=== PATIENT | female | born 1935 | race Caucasian/White ===

== ENCOUNTER → 2016-06-24 09:38 | Outpatient (CLI) | payer MEDICARE, OTHER ==
[2016-04-03 10:59] VITALS: BMI 19.7
[~2016-06-24 09:38] MED LIST: ACETAMINOPHEN500 M1 PO; ADVAIR HFA 230-12 GM; ADVAIR HFA 230-12 GM INH; AFRIN NASAL SPR15 ML NASAL; BACTRIM DS TABL1 TAB PEG; BACTRIM PEG; BAYER CHEWABLE81 MG PO; BROVANA15 MCG/2 M INH; CIPROFLOXA IV; GUAIFENESI100 MG/5 M NG; LEVAQUIN250 MG/10 PEG; LEVAQUIN500 MG PO; LOPRESSOR25 MG PO; MEDROL DOSE PACK4 MG PO; MIDODRINE HCL2.5 MG PO; MIDODRINE HCL5 MG PO; MIRAPEX0.125 MG PO; MUCINEX DM ER1 EAC1 PO; MUCINEX600 MG PO; MUCOMYST 20200 MG/M2 INH; NYSTATIN15 GM TOPICAL; OMNICEF300 MG PO; OXYTROL PATCH1 PATCH TRANSDERM; PEPCID AC20 MG PO; PHENERGAN25 M1 PO; PROBIOTIC1 EAC1 PO; PROTONIX20 MG PO; PROVENTIL HFA6.7 GM INH; PROVENTIL/2.5 MG/3 M NEB; QUESTRAN PACK4 G/PKT PO; REGLAN SOL10 MG/10 M PO; ROBAXIN500 MG PO; SALINE NASAL SP45 ML NS; SINGULAIR10 MG PO; SPIRIVA18 MCG INH; SULFATRIM SUSP100 ML PO; SYNTHROID125 MCG; SYNTHROID125 MCG PO; TOBI 300 M300 MG/5 M INH; TOBI 300 M300 MG/5 M UPD; TOBRAMYCIN S40 MG/M1 IM; TOBRAMYCIN S40 MG/M1 IV; TOPROL XL25 MG PO; ULTRAM50 MG PO; VITAMIN D250000 UNIT; VITAMIN D50000 UNIT PO; XANAX0.25 MG PO; XOPENEX 0.0.63 MG/3 UPD; ZOFRAN8 MG PEG
== END | disposition home or self-care (01) ==
LOC: D.RAD 09:38
DX: J45.909 Unspecified asthma, uncomplicated (principal)

== ENCOUNTER 2016-07-10 08:07 | Outpatient (CLI) | payer MEDICARE, OTHER ==
[~2016-07-10] VITALS: Ht 175.3 cm; Wt 60.0 kg
[~2016-07-10 08:07] MED LIST changes: -ACETAMINOPHEN500 M1 PO
[2016-07-10] MEDS ORDERED: ROBAXIN500 MG PO (08:35)
[2016-07-10] MEDS ORDERED: ACETAMINOPHEN500 M1 PO (08:36)
[2016-07-10] MEDS ORDERED: ULTRAM50 MG PO (08:36)
[2016-07-10 08:41] VITALS: BP 171/70; Ht 175.3 cm; Wt 60.0 kg
--- NOTE | 2016-07-10 08:57 | NUR ---
0850 ACCESSED PATIENT PORT WITHOUT PROBLEMS, FLUSHED WITH SALINE AND HEPARIN, DISCONTINUED AND A BANDAID PLACED OVER SITE. NO PROBLEMS NOTED
== END 2016-07-10 08:59 ==
LOC: D.OPS 08:07
DX: Z45.2 Encounter for adjustment and management of vascular access device (principal)

== ENCOUNTER → 2016-08-08 08:03 | Outpatient (CLI) | payer MEDICARE, OTHER ==
[2016-07-10 08:41] VITALS: BMI 19.5
[~2016-08-08 08:03] MED LIST changes: +ACETAMINOPHEN500 M1 PO
[2016-08-08 08:54] LABS: BASOPHILS 0.1 % (0.0-2.0); EOSINOPHILS 1.8 % (0-7); HEMATOCRIT 36.3 % (36.0-48.0); HEMOGLOBIN 10.6 g/dL (12-16); IMMATURE GRANULOCYTES 0.3 % (0-5); LYMPHOCYTES 10.9 % (15-50); MCH 23.1 pg (26.0-34.0); MCHC 29.2 g/dL (31.0-37.0); MCV 79.1 fL (80.0-100.0); MEAN PLATELET VOLUME 10.3 fL (7.4-10.4); MONOCYTES 4.2 % (2-11); NEUTROPHILS 82.7 % (40-80); PLATELET COUNT 356 10x3/uL (130-400); RBC 4.59 10x6/uL (4.00-5.40); RDW 15.2 % (11.5-14.5); WBC 14.4 10x3/uL (4.8-10.8)
== END | disposition home or self-care (01) ==
LOC: D.RAD 08:03
PROVIDERS: Internal Medicine Pulmonary Disease
DX: J44.9 Chronic obstructive pulmonary disease, unspecified (principal)

== ENCOUNTER 2016-08-10 15:38 | Inpatient (IN) | payer MEDICARE, OTHER ==
[~2016-08-10] VITALS: Ht 175.3 cm; Wt 67.0 kg
[2016-08-10 16:26] LABS: BASOPHILS 0.1 % (0.0-2.0); EOSINOPHILS 1.3 % (0-7); HEMATOCRIT 34.7 % (36.0-48.0); HEMOGLOBIN 10.4 g/dL (12-16); IMMATURE GRANULOCYTES 0.3 % (0-5); LYMPHOCYTES 14.2 % (15-50); MCH 23.4 pg (26.0-34.0); MEAN PLATELET VOLUME 10.8 fL (7.4-10.4); MONOCYTES 6.7 % (2-11); NEUTROPHILS 77.4 % (40-80); PLATELET COUNT 357 10x3/uL (130-400); RBC 4.45 10x6/uL (4.00-5.40); RDW 15.1 % (11.5-14.5); WBC 13.9 10x3/uL (4.8-10.8)
[2016-08-10 16:53] LABS: ALBUMIN 3.2 g/dL (3.4-5.0); ANION GAP 15.9 mmol/L (8-16); BILIRUBIN - TOTAL 0.4 mg/dL (0.2-1.3); CALCIUM 8.6 mg/dL (8.5-10.1); CARBON DIOXIDE 25.1 mmol/L (21.0-32.0); CREATININE - SERUM 0.9 mg/dL (0.6-1.3); PROTEIN - SERUM 6.6 g/dL (6.4-8.2)
[2016-08-10 17:55] LABS: CREATINE KINASE 65 UL (21-215); PRO BNP 288 pg/mL (0-450)
[2016-08-10 17:56] LABS: TROPONIN-I < 0.017 ng/mL (0.000-0.060)
--- NOTE | 2016-08-10 19:25 | NUR ---
Patient Name: LIZ JOYCE Admission Status: ER Accout number: [id number] Admission Date: 08-10-2016 : 1935 Admission Diagnosis: LLL Pneumonia Attending: BALWINDER Current LOS: 1 Anticipated DC Date: 08-15-2016 Planned Disposition: Home with [facility] Primary Insurance: MEDICARE A & B Discharge Planning Comments: Cm met with patient to complete initial discharge planning assessment. Patient gave consent to complete assessment. Patient reports she lives home alone but her son lives next door to her and helps her as needed. She currently has [facility]. She also has personal care that helps with her meals and house work. She wears O2 24/7 at home and her oxygen provider is [facility]. Patient plans to return to home alone at discharge with resumption of [facility]. CM will continue to follow and assist with dc plan/needs. Antique Jewelry Repairer: Carmen Palacios RN, [facility] [phone] Is the patient Alert and Oriented? Yes * How many steps to enter\exit or inside your home? FOUR * PCP Dr. العلي * Pharmacy [place] * Preadmission Environment Home Alone * ADLs Partial Dependent * Partial ADLs (Assistance needed) Bathing * Equipment [employer] Rolling Walker Walker * Other Equipment [facility] * List name and contact numbers for known caregivers / representatives who currently or will assist patient after discharge: Kenney Solis - [facility] - [phone] * Community resources currently utilized Home Health * Please name any agencies selected above. [facility] * Additional services required to return to the preadmission environment? No * Can the patient safely return to the preadmission environment? Yes * Has this patient been hospitalized within the prior 30 days at any hospital? No
[2016-08-11] VITALS (7 sets, daily range): BP systolic 143–159; BP diastolic 52–66; BMI 19.3
--- NOTE | 2016-08-11 03:23 | NUR ---
COLLECTED SPTUMUM FOR CULTURE.
[2016-08-11 06:36] LABS: BASOPHILS 0.1 % (0.0-2.0); EOSINOPHILS 1.4 % (0-7); HEMATOCRIT 32.7 % (36.0-48.0); HEMOGLOBIN 9.6 g/dL (12-16); IMMATURE GRANULOCYTES 0.2 % (0-5); LYMPHOCYTES 12.8 % (15-50); MCH 22.9 pg (26.0-34.0); MCHC 29.4 g/dL (31.0-37.0); MEAN PLATELET VOLUME 10.2 fL (7.4-10.4); MONOCYTES 7.3 % (2-11); NEUTROPHILS 78.2 % (40-80); PLATELET COUNT 310 10x3/uL (130-400); RBC 4.19 10x6/uL (4.00-5.40); RDW 15.3 % (11.5-14.5)
[2016-08-11 06:52] LABS: ANION GAP 13.5 mmol/L (8-16); CALCIUM 8.7 mg/dL (8.5-10.1); CARBON DIOXIDE 25.3 mmol/L (21.0-32.0); CREATININE - SERUM 0.8 mg/dL (0.6-1.3); POTASSIUM - SERUM 3.8 mmol/L (3.5-5.1)
--- NOTE | 2016-08-11 07:30 | NUR ---
WALKING ROUNDS,PT WITHOUT DISTRESS
--- NOTE | 2016-08-11 08:52 | HP ---
PATIENT: LIZ JOYCE MEDICAL RECORD: [id number] ACCOUNT: [id number] LOCATION:[address] : [birth year] ADMISSION DATE: 08/10/16 HISTORY AND PHYSICAL EXAMINATION REASON FOR ADMISSION: Fever with cough. HISTORY OF PRESENT ILLNESS: The patient is a 81-year-old female with history of bronchiectasis and COPD. She sees Dr. Jacques on a regular basis. She is due to see him next week since she had x-rays done 2 days ago at the hospital prior to that appointment. She said she had abrupt onset of increasing cough and fever to 100.4 last night. She became more short of breath today and then came to the ER. She states she had similar episode 2 weeks ago with fall through at home just with her updrafts and Mucinex, but no antibiotics. Chest x-rays now showed changes with some early infiltrate. She is now being admitted for that reason. PAST MEDICAL HISTORY: Bronchiectasis, hypothyroidism, orthostatic hypotension on Midodrine. She had TB, pneumonia, postmenopausal, history of chronic low back pain, history of stroke in 2007, atrial fibrillation, labile hypertension in the past, history of squamous cell carcinoma of the face, severe gastroparesis and esophageal stricture post-dilatation. PAST SURGICAL HISTORY: Cholecystectomy, cataract surgery both eyes, and appendectomy. She had lumbar discectomy times 3 with ablation in 2011, gastrojejunal tube, ____ thyroid tumor removed and hysterectomy. J-tube placement, right oophorectomy, carpal tunnel release, cervical spine surgery and exploratory laparotomy. ALLERGIES: SULFA, MORPHINE, ADHESIVE TAPE, LEVAQUIN CAUSED HALLUCINATIONS AND PENICILLIN. FAMILY HISTORY: Father at 54 from TB. Mother at 86 from renal failure and had migraine headaches. One sister at 54 and other at age 63 from CAD, and breast cancer. One brother with CAD and hypertension. SOCIAL HISTORY: She does not drink alcohol, nonsmoker, but did smoke in the past. HOME MEDICATIONS: Zofran 8 mg per gastrostomy q.8 hours p.r.n. nausea and vomiting, Protonix 40 mg b.i.d., Mirapex 0.125 mg p.o. at bedtime, aspirin 81 mg daily, vitamin D 50,000 unit capsule twice a week, Advair HFA 230/21 two puffs b.i.d., Synthroid 0.125 mg daily, Singulair 10 mg with evening meal, probiotic 1 daily, Pepcid AC 20 mg at bedtime, Xanax 0.25 mg b.i.d. p.r.n. anxiety, Oxytrol 3.9 mg patch to skin q. Friday and , Lopressor 25 mg tablets 1/2 tab daily, Mucomyst 20% updraft q.12 hours, Xopenex 0.63 mg updrafts q.i.d., Mucinex 600 mg 2 tabs b.i.d., Genasal sprays twice daily, saline nasal spray 2 nasal sprays every hour as needed, ProAmatine 5 mg tablets 4 times daily. REVIEW OF SYSTEMS: GENERAL: More fatigued in the last 24 hours with low-grade fever, poor appetite. HEENT: No recent new visual change, sinus congestion, or sore throat. RESPIRATORY: Increasingly productive cough with yellow-green sputum, mildly dyspneic. Denies chest pain. HISTORY AND PHYSICAL [id number] LIZ JOYCE CARDIAC: Denies chest pain, edema. GASTROINTESTINAL: No nausea or vomiting. GENITOURINARY: Mild stress incontinence, no dysruia. MUSCULOSKELETAL: Chronic arthralgias of the lumbar spine, no current sciatica. ENDOCRINE: Denies polyuria, polydipsia, heat or cold intolerance. NEUROLOGIC: No history of seizures. PSYCHIATRIC: Denies depressed mood. PHYSICAL EXAMINATION: VITAL SIGNS: O2 saturation is currently 95% on 2 liters, pressure 110/80, heart rate 60, respirations are 22, temperature is 98 degrees Fahrenheit. GENERAL: A chronically ill-appearing female in no acute distress. Mildly dyspneic. HEENT: Eyes are clear with lens implants both eyes. Oropharynx unremarkable. NECK: Supple. No JVD. CHEST: She has expiratory wheezes in the upper lobes bilaterally. She is producing copious green sputum currently. HEART: Regular rate. ABDOMEN: Soft, nontender. EXTREMITIES: No CC&E. NEUROLOGICAL: Oriented times 3. Cranial nerves grossly intact. Gait not tested. No localizing neurologic signs are noted. INTEGUMENT: No bruising or icterus appreciated. Skin tense somewhat. LABORATORY DATA: Shows white count of 13.9 thousand with left shift, H&H is 10.4 and 34.7 respectively. Chemistry: BUN and creatinine of 20 and 0.9, lactic acid 1.4. Liver functions are normal. Urinalysis is pending. Chest x-ray shows increasing left lower lobe airspace disease consistent with pneumonia, persistent left pleural effusion. ASSESSMENT: Community-acquired pneumonia, bronchiectasis, chronic obstructive pulmonary disease with hypoxemia, hypothyroidism, history of essential hypertension, history of orthostatic hypotension, chronic low back pain, anxiety, hypothyroidism, history of chronic anemia, paroxysmal atrial fibrillation with remote ablation, peripheral neuropathy and history of gastrointestinal stromal tumor. PLAN: The patient will be admitted and placed on broad-spectrum IV antibiotics. Her home pulmonary updrafts will be continued. Consult with Dr. Jacques will be obtained. TRANSINT:[id number] Voice Confirmation ID: [id number] DOCUMENT ID: [id number] HISTORY AND PHYSICAL [id number] LIZ JOYCE TIMOTHY MD at 0852 CC: [id number] DICTATION DATE: 08/10/162002 INDUSTRIAL PRODUCTION MANAGER: 08/10/16 2207 [id number] [place] [address]
--- NOTE | 2016-08-11 09:00 | NUR ---
ASSESSMENT PER FLOW SHEET.PT WITHOUT DISTRESS.CALL LIGHT IN REACH
[2016-08-11 13:58] LABS: APPEARANCE CLEAR (CLEAR); COLOR YELLOW (YELLOW)
[2016-08-11 13:59] LABS: BILIRUBIN NEGATIVE (NEGATIVE); GLUCOSE NEGATIVE (NEGATIVE); KETONE SMALL mg/dL (NEGATIVE); LEUKOCYTE ESTERASE NEGATIVE (NEGATIVE); NITRITE NEGATIVE (NEGATIVE); PROTEIN NEGATIVE (NEGATIVE); SPECIFIC GRAVITY 1.015 (1.005-1.020); UROBILINOGEN NORMAL (NORMAL)
--- NOTE | 2016-08-11 14:30 | NUR ---
DRESSING CHANGE TO PEG TUBE SITE.PT TOLERATED WELL.SKIN AROUND PEG TUBE RED.YELLOW DRAINAGE NOTED ON DRESSING.
--- NOTE | 2016-08-11 19:28 | NUR ---
REMAINS WITHOUT NEEDS,WITHOUT CHANGE.CONT PLAN OF CARE
--- NOTE | 2016-08-11 19:40 | NUR ---
ASSESSMENT COMPLETE, IN BED WATCHING TV, PT DENIES PAIN OR NEEDS, BED LOW, CL IN REACH.
--- NOTE | 2016-08-11 20:24 | NUR ---
UP WITH ASSIST TO BR.
--- NOTE | 2016-08-11 21:56 | NUR ---
HS MEDS GIVEN WITH FRESH ICE WATER. OSMOLITE 1.5 JOSE INFUSING TO PEG. AT 90 CC/HR. WILL CONT TO MONITOR.
--- NOTE | 2016-08-12 00:27 | NUR ---
LUMBER TRIPPER AT BEDSIDE FOR VS, NEEDS ADDRESSED. CALL LIGHT IN REACH. WILL CONT TO MONITOR.
[2016-08-12 00:30] VITALS: BP 138/70
--- NOTE | 2016-08-12 03:17 | NUR ---
RESTING WITH EYES CLOSED, RESPERATIONS EVEN, NO S/S DISTRESS NOTED.
[2016-08-12 04:45] VITALS: BP 168/71
--- NOTE | 2016-08-12 07:26 | NUR ---
AM ROUNDING DONE. OSOMOLITE INFUSING PER PEG TUBE AT 90 CC/HR, WHEN FINISHED WILL FLUSH AND CLAMP PEG ORDERED. ON 2L PER NC. RIGHT IP IS SALINE LOCKED. BILATERAL TATE HOSE ON WITH SCD'S. WILL TAKE THEM OFF AND ASSESS SKIN THIS AM. WILL CONTINUE TO MONITOR.
--- NOTE | 2016-08-12 08:09 | NUR ---
TO RADIOLOGY VIA WHEELCHAIR AND PORTABLE O2. TUBE FEEDING FLUSHED WITH 60 CC WATER AND CLAMPED. SALINE LOCK MADE TO RIGHT IP, NO DATE SEEN TO DRESSING. PATIENT STATES THAT IT WAS ACCESSED FRIDAY IN THE ER. WILL CONTINUE TO MONITOR. BED LINENS CHANGED.
[2016-08-12 08:13] VITALS: BP 138/51
--- NOTE | 2016-08-12 08:22 | NUR ---
RETURNS FROM RADIOLOGY.
[2016-08-12 12:04] VITALS: BP 134/55
[2016-08-12 13:22] VITALS: Ht 175.3 cm; Wt 67.0 kg
[2016-08-12 18:12] VITALS: BP 155/66
--- NOTE | 2016-08-12 19:38 | NUR ---
ASSESSMENT COMPLETE, A&O, RIGHT CHEST IFP SL, DRSG INTACT. PEG TUBE CLAMMPED. PT DENIES PAIN OR NEEDS, BED LOW, CL IN REACH, WILL CONT TO MONITOR.
[2016-08-12 20:00] VITALS: BP 117/48
--- NOTE | 2016-08-12 21:04 | NUR ---
HS MEDS GIVEN WITH FRESH ICE WATER, OSMYLYTE 1.5 JOSE TO PEG TUBE AT 90 CC/HR. ULTRAM 1 TAB GIVEN FOR C/O PAIN TO LEGS, NO OTHER NEEDS AT THIS TIME, BED LOW, CL IN REACH.
[2016-08-13] VITALS: BP 126/52
--- NOTE | 2016-08-13 00:39 | NUR ---
GRIT REMOVAL OPERATOR AT BEDSIDE FOR VS, NEEDS ADDRESSED. CALL LIGHT IN REACH. WILL CONT TO MONITOR.
--- NOTE | 2016-08-13 02:37 | NUR ---
RESTING WITH EYES CLOSED, RESPERATIONS EVEN, NO S/S DISTRESS NOTED.
[2016-08-13 04:00] VITALS: BP 129/59
--- NOTE | 2016-08-13 07:55 | NUR ---
0715-COMPLAINTS OF NAUSEA, ORAL ZOFRAN GIVEN PER REQUEST. PEG TUBE CLAMPED PAST FLUSHING WITH 60 CC WATER. RIGHT IP SEEN WITH NS AT KVO. O2 AT 2L PER NC. BILATERAL TATE HOSE AND SCD'S ARE ON. WILL CONTINUE TO MONITOR.
[2016-08-13 08:27] VITALS: BP 156/72
--- NOTE | 2016-08-13 10:42 | NUR ---
DENIES NEEDS AT PRESENT TIME, WILL CONTINUE TO MONITOR.
[2016-08-13 12:02] VITALS: BP 134/71
--- NOTE | 2016-08-13 13:27 | NUR ---
READING BOOK, DENIES NEEDS AT PRESENT TIME. WILL CONTINUE TO MONITOR.
[2016-08-13 16:38] VITALS: BP 149/73
--- NOTE | 2016-08-13 18:17 | NUR ---
DENIES NEEDS AT PRESENT TIME, READING BOOK. WILL CONTINUE TO MONITOR.
[2016-08-13 21:06] VITALS: BP 149/67
--- NOTE | 2016-08-13 21:17 | NUR ---
HS MEDS GIVEN WITH FRESH ICE WATER. TYLENOL GIVEN FOR C/O DISCOMFORT TO LOWER EXTREMITIES, NO OTHER NEEDS EXPRESSED AT THIS TIME, BED LOW, CL IN REACH.
--- NOTE | 2016-08-13 23:29 | NUR ---
WORKSITE WELLNESS PRACTITIONER AT BEDSIDE FOR VS. NEEDS ADDRESSED AT THIS TIME. CALL LIGHT IN REACH. PATRICIA CONT TO MONITOR.
[2016-08-14 01:50] VITALS: BP 134/56
[2016-08-14 05:40] VITALS: BP 115/65
[2016-08-14 05:52] LABS: BASOPHILS 0.2 % (0.0-2.0); EOSINOPHILS 4.8 % (0-7); HEMOGLOBIN 8.9 g/dL (12-16); IMMATURE GRANULOCYTES 0.2 % (0-5); LYMPHOCYTES 18.1 % (15-50); MCH 22.5 pg (26.0-34.0); MCHC 28.7 g/dL (31.0-37.0); MCV 78.3 fL (80.0-100.0); MEAN PLATELET VOLUME 10.8 fL (7.4-10.4); MONOCYTES 10.3 % (2-11); NEUTROPHILS 66.4 % (40-80); PLATELET COUNT 359 10x3/uL (130-400); RBC 3.96 10x6/uL (4.00-5.40); RDW 14.9 % (11.5-14.5)
[2016-08-14 06:23] LABS: CALC OSMOLALITY 276 mosm/kg (275-300); CALCIUM 8.1 mg/dL (8.5-10.1); CARBON DIOXIDE 27.8 mmol/L (21.0-32.0); CHLORIDE - SERUM 102 mmol/L (98-107); CREATININE - SERUM 0.7 mg/dL (0.6-1.3); POTASSIUM - SERUM 4.4 mmol/L (3.5-5.1); SODIUM 136 mmol/L (136-145); UREA NITROGEN 18 mg/dL (7-18); eGFR NON AFRICAN AMERICAN 85 mL/min (90-120)
[2016-08-14 06:29] LABS: GLUCOSE 153 mg/dL (74-106)
--- NOTE | 2016-08-14 08:00 | NUR ---
ASSESSEMENT DONE. PT SITTING UP IN BED READING A BOOK. FEEDING PUMP TURNED OFF AND FLUSHED WITH 60ML OF H2O. PT DENIES NEEDS. NO DISTRESS NOTED. PT TO X-RAY VIA W/C. WILL CONT. TO MONITOR.
[2016-08-14 08:03] VITALS: BP 126/60
--- NOTE | 2016-08-14 09:01 | NUR ---
PLACED PATIENT ON VEST FOR 20 MIN. TOLERATED WELL.
--- NOTE | 2016-08-14 09:31 | NUR ---
RESP UL ON . IV PATENT. FAMILY AT BS. WILL CONT. PLAN OF CARE.
[2016-08-14 11:59] VITALS: BP 142/63
--- NOTE | 2016-08-14 14:09 | NUR ---
PT SITTING UP IN CHAIR AT BEDSIDE. DENIES NEEDS. NO DISTRESS NOTED. CALL LIGHT WITH IN REACH. WILL CONT. TO MONITOR.
--- NOTE | 2016-08-14 14:12 | NUR ---
Nutrition Follow Up: Chart reviewed. Pt is eating 31% meal avg on a regular pureed diet. Pt is also receiving nocturnal TF of Osmolite 1.5 @ 90 ml/hr (for 12 hours). Per DIRECTOR CORPORATE SECURITY note pt does not like pureed texture - DIRECTOR CORPORATE SECURITY continuing to work with pt. I>O. Labs noted - Glucose slightly elevated. Meds noted. Rec continue current diet per DIRECTOR CORPORATE SECURITY recs. Rec continue current TF regimen. Will provide selective menus and honor food preferences. RD following.
[2016-08-14 16:00] VITALS: BP 145/57
--- NOTE | 2016-08-14 20:43 | NUR ---
HS MEDS GIVEN WITH FRESH ICE WATER. OSMOLITE 1.5 JOSE INFUSING TO PEG TUBE AT 90 CC/HR. ULTRAM 1 TAB GIVEN FOR C/O DISCOMFORT. NO OTHER NEEDS AT THIS TIME, BED LOW, CL IN REACH.
[2016-08-14 22:07] VITALS: BP 170/71
--- NOTE | 2016-08-14 23:26 | NUR ---
IN BED RESTING WITH EYES CLOSED, RESPERATIONS EVEN, NO S/S DISTRESS NOTED.
[2016-08-15 01:57] VITALS: BP 156/72
[2016-08-15 05:26] VITALS: BP 141/57
[2016-08-15 05:54] LABS: BASOPHILS 0.2 % (0.0-2.0); EOSINOPHILS 4.4 % (0-7); HEMATOCRIT 31.6 % (36.0-48.0); HEMOGLOBIN 9.2 g/dL (12-16); IMMATURE GRANULOCYTES 0.2 % (0-5); LYMPHOCYTES 20.9 % (15-50); MCH 22.7 pg (26.0-34.0); MCHC 29.1 g/dL (31.0-37.0); MEAN PLATELET VOLUME 10.7 fL (7.4-10.4); MONOCYTES 9.3 % (2-11); PLATELET COUNT 363 10x3/uL (130-400); RBC 4.05 10x6/uL (4.00-5.40); RDW 15.1 % (11.5-14.5); WBC 5.5 10x3/uL (4.8-10.8)
[2016-08-15 06:06] LABS: ANION GAP 9.6 mmol/L (8-16); CALCIUM 8.8 mg/dL (8.5-10.1); CARBON DIOXIDE 28.5 mmol/L (21.0-32.0); CREATININE - SERUM 0.8 mg/dL (0.6-1.3); POTASSIUM - SERUM 4.1 mmol/L (3.5-5.1)
--- NOTE | 2016-08-15 06:27 | NUR ---
NO CHANGES FROM PREVIOUS ASSESSMENT, CALL LIGHT IN REACH. WILL CONTINUE TO WITH PLAN OF CARE.
--- NOTE | 2016-08-15 08:12 | NUR ---
PLACED PT ON VEST TX FOR 20 MIN. EDGAR TX WELL.
[2016-08-15 08:19] VITALS: BP 140/60
--- NOTE | 2016-08-15 08:44 | NUR ---
ASSESSMENT DONE. PT SITTING UP IN BED TALKING ON PHONE. A/O. STATES SHE VOMITED UP WHAT BREAKFAST SHE ATTEMPTED TO EAT. DENIES NAUSEA AT THIS TIME. DENIES OTHER NEEDS. NO DISTRESS NOTED. CALL LIGHT WITH IN REACH. WILL CONT TO MONITOR.
--- NOTE | 2016-08-15 09:23 | NUR ---
IV PATENT. FAMILY AT BS. CALL LIGHT IN REACH. WILL CONT. PLAN OF CARE.
--- NOTE | 2016-08-15 09:30 | NUR ---
PT UNABLE TO TAKE PO MEDS A THIS TIME. C/O NAUSEA. HAD ZOFRAN AT 0630. PT THINKS NAUSEA IS D/T HER NERVES. XANAX GIVEN. WILL CONT. TO MONITOR.
--- NOTE | 2016-08-15 10:46 | NUR ---
PT STATES NAUSEA AND ANXIETY HAS IMPROVED. DAUGHTER ASSISTING PT WITH SHOWER. NO DISTRESS NOTED. WILL CONT. TO MONITOR.
[2016-08-15 12:20] VITALS: BP 137/55
--- NOTE | 2016-08-15 14:05 | NUR ---
PT SLEEPING. APPEARS COMFORTABLE. RESP EVEN AND UNLABORED. NO DISTRESS NOTED. CALL LIGHT WITH IN REACH. WILL CONT. TO MONITOR.
[2016-08-15 16:17] VITALS: BP 121/62
--- NOTE | 2016-08-15 18:10 | NUR ---
PT SLEEPING. HOB ELEVATED. NO DISTRESS NOTED. CALL LIGHT WITH IN REACH. WILL CONT. TO MONITOR.
--- NOTE | 2016-08-15 19:00 | NUR ---
RECEIVED REPORT AND ASSUMED PT CARE FROM DAY SHIFT NURSE @ THIS TIME.
[2016-08-15 20:00] VITALS: BP 140/64
--- NOTE | 2016-08-15 21:30 | NUR ---
OSMOLITE 1.5 JOSE FEEDING STARTED TO J-TUBE @ 90 ML/HR AT THIS TIME VIA PUMP. PT STATES NOT RECEIVING ANY FLUSHES DURING THE FEEDING.
--- NOTE | 2016-08-15 23:25 | NUR ---
PT RESTING WELL WITHOUT C/O OR DISTRESS NOTED.
[2016-08-16] VITALS: BP 120/44
[2016-08-16 04:00] VITALS: BP 132/60
[2016-08-16 08:51] LABS: CALC OSMOLALITY 281 mosm/kg (275-300); CALCIUM 8.6 mg/dL (8.5-10.1); CARBON DIOXIDE 28.1 mmol/L (21.0-32.0); CHLORIDE - SERUM 105 mmol/L (98-107); CREATININE - SERUM 0.7 mg/dL (0.6-1.3); GLUCOSE 84 mg/dL (74-106); POTASSIUM - SERUM 4.5 mmol/L (3.5-5.1); SODIUM 139 mmol/L (136-145); UREA NITROGEN 26 mg/dL (7-18); eGFR NON AFRICAN AMERICAN 85 mL/min (90-120)
[2016-08-16 09:11] LABS: BASOPHILS 0.3 % (0.0-2.0); EOSINOPHILS 3.6 % (0-7); HEMATOCRIT 30.6 % (36.0-48.0); HEMOGLOBIN 8.9 g/dL (12-16); IMMATURE GRANULOCYTES 0.3 % (0-5); LYMPHOCYTES 21.8 % (15-50); MCH 22.8 pg (26.0-34.0); MCHC 29.1 g/dL (31.0-37.0); MCV 78.3 fL (80.0-100.0); MEAN PLATELET VOLUME 11.1 fL (7.4-10.4); MONOCYTES 11.9 % (2-11); NEUTROPHILS 62.1 % (40-80); PLATELET COUNT 381 10x3/uL (130-400); RBC 3.91 10x6/uL (4.00-5.40); RDW 15.4 % (11.5-14.5); WBC 6.1 10x3/uL (4.8-10.8)
[2016-08-16 09:52] VITALS: BP 128/58
[2016-08-16 13:19] VITALS: BP 139/59
[2016-08-16 16:38] VITALS: BP 141/60
[2016-08-16 21:44] VITALS: BP 144/53
[2016-08-17 00:35] VITALS: BP 136/58
--- NOTE | 2016-08-17 04:17 | NUR ---
DELAY IN STARTING HS OSMOLITE AT 90CC/HR VIA PUMP TO mymission2. STARTED AT THIS TIME. SPOKE WITH PT. WILL ADMINISTER 2 CANS AND THEN SHE WILL DECIDE IF SHE WANTS TO EAT BREAKFAST OR HAVE THE OTHER 2 CANS. IV ABT IS INFUSING. NO OTHER NEEDS. WILL MONITOR.
[2016-08-17 04:36] VITALS: BP 107/68
[2016-08-17 07:07] LABS: BASOPHILS 0.4 % (0.0-2.0); HEMATOCRIT 30.2 % (36.0-48.0); HEMOGLOBIN 8.8 g/dL (12-16); IMMATURE GRANULOCYTES 0.2 % (0-5); LYMPHOCYTES 25.5 % (15-50); MCH 22.7 pg (26.0-34.0); MCHC 29.1 g/dL (31.0-37.0); MEAN PLATELET VOLUME 10.9 fL (7.4-10.4); MONOCYTES 10.4 % (2-11); NEUTROPHILS 58.5 % (40-80); PLATELET COUNT 354 10x3/uL (130-400); RBC 3.87 10x6/uL (4.00-5.40); RDW 15.3 % (11.5-14.5); WBC 5.2 10x3/uL (4.8-10.8)
[2016-08-17 07:21] LABS: CALCIUM 8.6 mg/dL (8.5-10.1); CARBON DIOXIDE 27.6 mmol/L (21.0-32.0); CHLORIDE - SERUM 104 mmol/L (98-107); CREATININE - SERUM 0.7 mg/dL (0.6-1.3); SODIUM 140 mmol/L (136-145); UREA NITROGEN 21 mg/dL (7-18); eGFR NON AFRICAN AMERICAN 85 mL/min (90-120)
[2016-08-17 07:23] LABS: CALC OSMOLALITY 283 mosm/kg (275-300); GLUCOSE 141 mg/dL (74-106); POTASSIUM - SERUM 3.8 mmol/L (3.5-5.1)
--- NOTE | 2016-08-17 07:54 | NUR ---
ASSESSMENT COMPLETED. O2 AT 2 L/M PER NC. RIGHT CHEST IP WITH NS AT KVO. J TUBLE WITH OSMOLYTE 1.5 INFUSING AT 90CC. DENIES ANY NEEDS. CALL LIGHT IN REACH WITH SR UP
[2016-08-17 08:00] VITALS: BP 135/57
--- NOTE | 2016-08-17 10:50 | NUR ---
DENIES ANY NEEDS. CALL LIGHT IN REACH. DR PAYNE HERE. ORDERS RECIEVED
--- NOTE | 2016-08-17 11:11 | NUR ---
PT DISCHARGED. IP FLUSHED WITH HEPARIN FLUSH. INSTRUCTIONS GIVEN TO PT. TO PRIVATE CAR PER WHEELCHAIR
--- NOTE | 2016-08-19 09:33 | NUR ---
Patient Name: LIZ JOYCE Encounter No: [id number] : 1935 Primary Insurance: MEDICARE A & B Anticipated DC Date: 08-17-2016 Planned Disposition: Home with Home Health External Planned Provider: MARLON [facility] DCP follow-up note: KEKE REVIEWED DISCHARGE, CALLED [facility], , WAS INFORMED BY MARIAMA THAT PT CALLED THEM THIS MORNING TO NOTIFY THEM OF HER DISCHARGE ON FRIDAY. MARGARET HAS NOT RECEIVED ANY DISCHARGE INFORMATION. MARGARET WILL RESUME [facility], CM FAXED DISCHARGE INFORMATION TO [facility] AT [phone]. NO FURHTER DISCHARGE NEEDS IDENTIFIED. Mundo Finley, CASE MANAGMENT
[2016-08-19 15:19] LABS: AEROBE ID Final report (())
--- NOTE | 2016-09-01 20:28 | DS ---
PATIENT:LIZ JOYCE :[birth year] MEDICAL RECORD: [id number] DISCHARGE SUMMARY ADMISSION DATE: 08/10/16 DISCHARGE DATE: 08/17/16 DISCHARGE DIAGNOSES: 1. Ujxnx-sp-xjvmkrw hypoxemia with respiratory failure. 2. Left lower lobe community-acquired pneumonia, chronic left pleural effusion, bronchiectasis with positive pseudomonas sputum culture. 3. Hypocalcemia. 4. Anemia of chronic disease. HOSPITAL COURSE: A 81-year-old female with chronic bronchiectasis and COPD, admitted with acute respiratory distress. Please see H&P for presenting symptoms, physical exam and clinical impression which included above diagnoses. She was placed in supplemental O2, pulmonary toilet, was seen by pulmonary and ID. She continued on IV cefepime for a total of 7 days. Her urine culture did grow pseudomonas from her sputum and negative from her blood. She had no MRSA cultured; therefore, vancomycin was discontinued. She has gradually improved. Her followup chest x-rays improved today except for chronic small pleural effusion. ID has signed off as we has been completed for 7 days of antibiotics and as her pulmonary improves, will be discharged today in improving condition. She wishes to return home with home health with [facility]. Her discharge temperature is 97.7, respiratory rate 20, blood pressure is 125/57, the heart rate is 74 and regular. Her H&H is 8.8 and 30.2, ____ chronic anemia, white count is 5000 with normal diff, platelet count 354,000. BUN and creatinine are 21 and 0.7, potassium was 3.8. Lactic acid is normal. The calcium is 8.6. DISCHARGE DIET: Regular as tolerated. DISPOSITION: Discharge home with home health with [facility]. DISCHARGE ACTIVITY: As tolerated. O2 at 2 liters. MEDICATIONS: On Xopenex updrafts q.i.d., midodrine 5 mg p.o. q.i.d., Robaxin 500 mg p.o. t.i.d. p.r.n. muscle spasm, Lopressor 25 mg tablet 1/2 tab daily or 12.5 mg daily, Mirapex 0.125 mg p.o. at bedtime, aspirin 81 mg p.o. daily, Xanax 0.25 mg b.i.d. p.r.n. anxiety, tramadol 50 mg p.o. q.4-6 hours as needed for severe pain, Tylenol 500 mg p.o. q.6 hours p.r.n. fever, Singulair 10 mg p.o. at bed time, Mucomyst 20% updrafts 4 mg b.i.d., guaifenesin 600 mg p.o. 2 tabs or 1200 mg p.o. b.i.d., Pulmicort 0.5, Respules and updraft q.12 hours, ____ nasal 2 sprays each nostril b.i.d., Flonase 2 nasal sprays daily each nostril, Protonix 40 mg p.o. b.i.d., probiotics 1 p.o. daily, Pepcid 20 mg p.o. at bed time. Synthroid 0.125 thirty minutes before breakfast daily, nystatin cream applied to the skin rash t.i.d. as needed, oxybutynin patch 1 patch to skin q. Friday, ; vitamin D 50,000 units p.o. twice weekly. ACTIVITY: Progressive PT as tolerated. FOLLOWUP: Return to clinic, see Ailin Wu in [address] Jacques per his order. TRANSINT:[id number] Voice Confirmation ID: [id number] DOCUMENT ID: [id number] DISCHARGE SUMMARY REPORT [id number] LIZ JOYCE TIMOTHY MD at 2028 CC: [id number] DICTATION DATE: 08/17/16 1016 SUPERVISOR FINISHING ROOM: 08/18/16 0034 DIS IN 08/17/16 [facility] [address] [place] [address]
== END 2016-08-17 11:15 | disposition home or self-care (01) | DRG 189 ==
LOC: D.ER 15:38 → D.M2 18:33
PROVIDERS: Emergency Medicine; Family Medicine; Internal Medicine Pulmonary Disease; Nurse Practitioner Family; ADMIT Family Medicine
DX: J96.21 Acute and chronic respiratory failure with hypoxia (principal); J15.1 Pneumonia due to Pseudomonas; J15.212 Pneumonia due to Methicillin resistant Staphylococcus aureus; J47.0 Bronchiectasis with acute lower respiratory infection; J47.1 Bronchiectasis with (acute) exacerbation; E03.9 Hypothyroidism, unspecified; I48.0 Paroxysmal atrial fibrillation; F41.9 Anxiety disorder, unspecified; E83.51 Hypocalcemia; D63.8 Anemia in other chronic diseases classified elsewhere; Z86.11 Personal history of tuberculosis; Z86.73 Personal history of transient ischemic attack (TIA), and cerebral infarction without residual deficits; Z87.891 Personal history of nicotine dependence

== ENCOUNTER → 2016-08-23 07:37 | Outpatient (CLI) | payer MEDICARE, OTHER ==
[2016-08-12 13:22] VITALS: BMI 19.3
== END | disposition home or self-care (01) ==
LOC: D.MRI 07:37
DX: M54.2 Cervicalgia (principal); M54.6 Pain in thoracic spine; G89.4 Chronic pain syndrome

== ENCOUNTER → 2016-08-29 09:35 | Outpatient (CLI) | payer MEDICARE, OTHER ==
[2016-08-12 13:22] VITALS: BMI 19.3
--- NOTE | ~2016-08-29 | HEMODYNAMI ---
PATIENT:LIZ JOYCE MEDICAL RECORD: [id number] : [birth year] LOCATION:[facility] ADMISSION DATE: 08/29/16 Generatedon:08/29/201612:40 Patient name: LIZ JOYCE Patient #: [id number] SSN: DO B: 1935 Date of study: 08/29/2016 Page: Of Hemodynamic Procedure Report Patient Data Patient Demographics Procedure consent was obtained First Name: LIZ Gender: Female Last Name: MARIA DEL CARMEN : 1935 Middle Initial: E Age: 81 year(s) Patient #: [id number] Race: Unknown Additional ID: [id number] Contact details Address: [address] [place] [address] State: [place] City: [facility] Zip code: [address] Admission Admission Data Admission Date: 08/29/2016 Admission Time: 9:35 Procedure Procedure Types Cath Procedure Peripheral Cath Diagnostic Procedure Gastric J- Tube Replacement/Exchange Procedure Description Procedure Date Procedure Date: 08/29/2016 Procedure Start Time: 12:30 Procedure End Time: 12:39 Procedure Staff Name Function Jaguar Finnegan MD Performing Physician Bhaskar Hoff RT Scrub Kalie Muniz RN Nurse Nataliia Busby RT Monitor Nataliia Busby RT Chip Person Procedure Data Cath Procedure Fluoroscopy Diagnostic fluoroscopy Total fluoroscopy Time: 1.1 time: 1.1 min min Diagnostic fluoroscopy Total fluoroscopy dose: dose: 21.38 mGy 21.38 mGy Contrast Material Contrast Material Type Amount (ml) Isovue 300 15 Hemodynamics Rest Pre Cath Intra NCS Post Cath Procedure Log Time Note 12:01:35 Time tracking: Regular hours 12:01:37 Bhaskar SPAIN (R) (CV) sent for patient. Start room use. 12:01:45 Patient received from Other to IR Alert and oriented. Tansferred to table in Supine position. 12:01:47 Signed procedure consent form obtained from patient. 12:01:49 Pre-procedure instructions explained to patient. 12:02:01 Use device set IR Diagnostic 12:02:03 Bag Decanter opened to sterile field. 12:02:07 Sterile Angiographic Pack opened to sterile field. 12:02:14 Pre-op teaching completed and patient verbalized understanding. 12:02:16 Patient pain scale 0/10 ?. 12:03:28 Left abdomen area was prepped with chlora-prep and draped in sterile fashion 12:09:02 Terumo ANGLED SS 260CM glide wire opened to sterile field. 12:17:39 MYA JEJUNAL FEEDING TUBE 14FR. opened to sterile field. 12:18:07 Physician paged 12:18:08 Physician responded to page. 12:27:30 Physician arrived 12:28:00 --------ALL STOP TIME OUT------ 12:28: Final Timeout: patient, procedure, and site verified with staff and physician. All members of the team are in agreement. 12:28:11 Left abdomen site verified by team. 12:28:16 Physical assessment completed. ASA score P 2 - A patient with mild systemic disease as per Jaguar Finnegan MD. 12:28:22 Sedation plan: Local Anesthetic Lidocaine 12:28:31 Sharps counted by scrub and verified by R.N. 12:29:03 Procedure started. 12:29:03 Full Disclosure recording started 12:30:16 Local anesthetic to Abdominal area with Lidocaine 1% by Jaguar Finnegan MD.INITIAL ACCESS ONLY 12:31:21 Wire was inserted into the existing tube. 12:35:02 Existing tube was removed over the wire. 12:35:19 New tube was advanced over the wire. 12:35:38 Contrast was placed in the balloon. 12:36:06 Wire was removed. 12:36:20 Procedure ended.(Physican Out) 12:37:09 Fluoroscopy time 01.10 minutes. 12:37:17 Fluoroscopy dose: 21.38 mGy 12:37:17 Flurop Dose total: 21.38 12:37:37 Contrast amount:Isovue 300 15ml. 12:37:40 Sharps counted by scrub and verified by R.N. 12:38:55 Procedure and supply charges have been captured, reviewed, submitted and are correct. 12:38:58 See physician's report for complete and final results. 12:39:04 Patient transfered to Other with Wheelchair. 12:39:08 Procedure ended. 12:39:08 Full Disclosure recording stopped 12:39:36 End room use (Document Last) Device Usage Item Name Manufacture Quantity Catalog Hospital Part Current Minim al Lot# / Number Charge Number Stock Stock Serial# Code Bag Decanter Microtek 1 [id number] 5 [employer] Sterile Cardinal 1 [id number] 5 Angiographic Health Pack Terumo Terumo 1 [id number] 5 ANGLED SS 260CM glide wire MYA JEJUNAL MORA 1 [id number] 5 FEEDING TUBE 14FR. Signature Audit Sheldahl Stage Time Signature Unsigned Intra-Procedure 08/29/2016 Nataliia Busby 12:39:57 PM RT(R) Signatures Monitor : Nataliia Busby Signature : RT Date : Time : [id number] [place] [address]
== END | disposition home or self-care (01) ==
LOC: D.OPS 09:35 → D.SP 10:30 → D.OPS 11:00 → D.SP 11:00
DX: K31.84 Gastroparesis (principal)

== ENCOUNTER 2016-09-04 12:45 | Emergency (ER) | payer MEDICARE, OTHER ==
[2016-08-12 13:22] VITALS: BMI 19.3
== END 2016-09-04 16:03 | disposition home or self-care (01) ==
LOC: D.ER 12:45
DX: M79.605 Pain in left leg (principal); M54.5 Low back pain; R51 Headache; W19.XXXA Unspecified fall, initial encounter; Y93.89 Activity, other specified; Y92.89 Other specified places as the place of occurrence of the external cause; J45.909 Unspecified asthma, uncomplicated

== ENCOUNTER → 2016-11-27 11:17 | Outpatient (CLI) | payer MEDICARE, OTHER ==
[2016-08-12 13:22] VITALS: BMI 19.3
== END | disposition home or self-care (01) ==
LOC: D.RAD 11:17
DX: J44.1 Chronic obstructive pulmonary disease with (acute) exacerbation (principal)

== ENCOUNTER → 2016-12-11 10:15 | Outpatient (CLI) | payer MEDICARE, OTHER ==
[2016-08-12 13:22] VITALS: BMI 19.3
--- NOTE | ~2016-12-11 | HEMODYNAMI ---
PATIENT:LIZ JOYCE MEDICAL RECORD: [id number] : 39 LOCATION:[facility] ADMISSION DATE: 12/11/16 Generatedon:12/11/201612:24 Patient name: LIZ JOYCE Patient #: [id number] SSN: DO B: 1935 Date of study: 12/11/2016 Page: Of Hemodynamic Procedure Report Patient Data Patient Demographics Procedure consent was obtained First Name: LIZ Gender: Female Last Name: MARIA DEL CARMEN : 1935 [facility] Initial: E Age: 81 year(s) Patient #: [id number] Race: Unknown Additional ID: [id number] Contact details Address: [address] [place] [address] State: [place] [facility] [place] code: [address] Admission Admission Data Admission Date: 12/11/2016 Admission Time: 10:15 Procedure Procedure Types Cath Procedure Peripheral Cath Diagnostic Procedure Cath Peripheral Gastric G J Tube Replacement Procedure Description Procedure Date Procedure Date: 12/11/2016 Procedure Start Time: 12:15 Procedure Staff Name Function Jaguar Finnegan MD Performing Physician Bhaskar Hoff RT Scrub Kalie Muniz RN Nurse Niyah Cote RT Environmental Epidemiologist Niyah Cote RT Monitor Procedure Data Cath Procedure Fluoroscopy Diagnostic fluoroscopy Total fluoroscopy Time: 0.4 time: 0.4 min min Diagnostic fluoroscopy Total fluoroscopy dose: 7 dose: 7 mGy mGy Contrast Material Contrast Material Type Amount (ml) Isovue 300 15 Hemodynamics Rest Pre Cath Intra NCS Post Cath Procedure Log Time Note 11:41:31 Time tracking: Regular hours 11:42:23 Patient received from Other to IR Alert and oriented. Tansferred to table in Supine position. 11:42:27 Correct patient and procedure confirmed by team. 11:42:30 Signed procedure consent form obtained from patient. 11:42:32 - 11:42:40 H&P Date Dictated: 12/11/2016 Within 30 days and on chart.. 11:42:42 Pre-procedure instructions explained to patient. 11:42:43 Pre-op teaching completed and patient verbalized understanding. 11:42:46 Family in waiting room. 11:42:49 Patient NPO since Midnight. 12:10:27 Use device set IR Diagnostic 12:10:29 Sterile Angiographic Pack opened to sterile field. 12:10:30 Bag Decanter opened to sterile field. 12:14:27 GASTRO-ENTERIC FEEDING TUBE 20FR. opened to sterile field. 12:14:28 Terumo Angled SS 180cm glide wire opened to sterile field. 12:14:58 Left abdomen area was prepped with chlora-prep and draped in sterile fashion 12:15:00 Physician arrived 12:15:06 --------ALL STOP TIME OUT------ 12:15:07 Final Timeout: patient, procedure, and site verified with staff and physician. All members of the team are in agreement. 12:15:25 Physical assessment completed. ASA score P 1 - A normal healthy patient as per Jaguar Finnegan MD. 12:15:32 Sedation plan: Local Anesthetic Lidocaine 12:15:41 Procedure started. 12:15:44 Full Disclosure recording started 12:15:53 Local anesthetic to Abdominal area with Lidocaine 1% by Jaguar Finnegan MD.INITIAL ACCESS ONLY 12:21:04 20fr gj tube placed 12:21:30 Procedure ended.(Physican Out) 12:21:48 Fluoroscopy time 00.40 minutes. 12:21:53 Flurop Dose total: 7 12:21:53 Fluoroscopy dose: 7 mGy 12:23:04 Contrast amount:Isovue 300 15ml. 12:23:07 Sharps counted by scrub and verified by R.N. 12:23:09 Procedure and supply charges have been captured, reviewed, submitted an d are correct. Device Usage Item Name Manufacture Quantity Catalog Hospital Part Current Min imal Lot# / Number Charge Number Stock Stock Serial# Code GASTRO-ENTERIC MORA 1 0210-22 [id number] 5 FEEDING TUBE 22FR. Terumo Angled Terumo 1 [id number] 5 SS 180cm glide wire Sterile Cardinal 1 [id number] 5 Angiographic Health Pack Bag Decanter Microtek 1 [id number] 5 [employer] Signature Audit [place] Stage Time Signature Unsigned Intra-Procedure 12/11/2016 Niyah Cote 12:24:52 PM RT(R) Signatures Monitor : Niyah Cote RT Signature : Date : Time : [place] [id number] [place] [address]
== END | disposition home or self-care (01) ==
LOC: D.OPS 10:15 → D.SP 10:15 → D.OPS 11:00 → D.SP 11:00
DX: K31.84 Gastroparesis (principal)

== ENCOUNTER → 2017-01-07 09:38 | Outpatient (CLI) | payer MEDICARE, OTHER ==
[2016-08-12 13:22] VITALS: BMI 19.3
== END | disposition home or self-care (01) ==
LOC: D.RAD 09:38
DX: J44.9 Chronic obstructive pulmonary disease, unspecified (principal)

== ENCOUNTER 2017-01-21 08:59 | Inpatient (IN) | payer MEDICARE, OTHER ==
[~2017-01-21] VITALS: Ht 175.3 cm; Wt 61.6 kg
[2017-01-21 10:57] LABS: BASOPHILS 0.2 % (0-2); HEMATOCRIT 32.4 % (36.0-48.0); HEMOGLOBIN 9.6 g/dL (12-16); IMMATURE GRANULOCYTES 0.2 % (0-5); LYMPHOCYTES 13.7 % (15-50); MCH 22.2 pg (26.0-34.0); MCHC 29.6 g/dL (31.0-37.0); MEAN PLATELET VOLUME 10.5 fL (7.4-10.4); MONOCYTES 5.1 % (2-11); NEUTROPHILS 79.8 % (40-80); PLATELET COUNT 407 10x3/uL (130-400); RBC 4.32 10x6/uL (4.00-5.40); RDW 15.9 % (11.5-14.5); WBC 13.1 10x3/uL (4.8-10.8)
[2017-01-21 11:04] LABS: APTT 36.6 SECONDS (22.8-39.4); INR 1.05 (0.85-1.17); PROTIME 13.6 SECONDS (11.6-15.0)
[2017-01-21 11:13] VITALS: BMI 19.5
--- NOTE | 2017-01-21 12:26 | NUR ---
1215-RECD TO ROOM POST BRONCHOSCOPY. DROWSY. AROUSES TO NAME CALL. IV PATENT TO PORT, R CHEST. DR VARGAS HERE, ORDERS TO ADMIT. FOOD SERVICES DIRECTOR NOTIFIED.
--- NOTE | 2017-01-21 16:00 | NUR ---
RECIVED FROM OP PER CART. TO ROOM 2126. FAMILY AT SIDE. RN FOR ADMIT ASSESSMENT
[2017-01-21] MEDS ORDERED: MYRBETRIQ25 MG PO (16:24)
[2017-01-21 16:35] VITALS: BP 146/69; BMI 19.5
--- NOTE | 2017-01-21 17:57 | NUR ---
WITHOUT CHANGES OR DISTRESS NOTED AT THIS TIME. DENIES NEEDS.
--- NOTE | 2017-01-21 19:50 | NUR ---
RECEIVED REPORT, WILL ASSUME CARE OF PT, PT DENIES ANY NEEDS AT THIS TIME, BED IS LOW, SRX2, CALL LIGHT IN REACH, WILL CONTINUE PLAN OF CARE
[2017-01-21 20:00] VITALS: BP 124/58
[2017-01-22 04:00] VITALS: BP 144/54
--- NOTE | 2017-01-22 05:00 | NUR ---
PT RESTING IN BED WITH NO DISTRESS. CPOC.
--- NOTE | 2017-01-22 07:30 | NUR ---
AM ROUNDS- PT IN BED, DENIES ANY NEEDS AT THIS TIME. BED LOW AND WHEELS LOCKED, BEDSIDE RAILS X2. LT CHEST PORT INFUSING NS AT 50. RESP EVEN AND UNLAORED ON 3L NC. CALL LIGHT IN REACH, NAD NOTED, WILL CONTINUE TO MONITOR.
[2017-01-22 07:35] LABS: ANION GAP 9.8 mmol/L (8-16); CALCIUM 8.1 mg/dL (8.5-10.1); CARBON DIOXIDE 27.9 mmol/L (21.0-32.0); CREATININE - SERUM 0.8 mg/dL (0.6-1.3); MAGNESIUM - SERUM 2.1 mg/dL (1.8-2.4); PHOSPHOROUS 3.5 mg/dL (2.5-4.9); POTASSIUM - SERUM 4.7 mmol/L (3.5-5.1)
[2017-01-22 08:00] VITALS: BP 139/63
--- NOTE | 2017-01-22 09:04 | NUR ---
AM MEDS GIVEN, PT IN BED, DENIES ANY NEEDS AT THIS TIME. CALL LIGHT IN REACH, NAD NOTED, WILL CONTINUE TO MONITOR.
[2017-01-22 09:48] VITALS: Ht 175.3 cm; Wt 61.6 kg
--- NOTE | 2017-01-22 09:48 | NUR ---
8MG OF ZOFRAN GIVEN FOR C/O NUASEA. PT IN BED, DENIES ANY NEEDS AT THIS TIME. CALL LIGHT IN REACH, NAD NOTE, WILL CONTINUE TO MONITOR.
--- NOTE | 2017-01-22 10:03 | NUR ---
Nutrition Consult: Pt reported that she is tolerating current TF regimen with no problems. Current TF regimen of Osmolite 1.5 @ 90 ml x 12 hours is providin kcal, 67 g protein and 815 ml free water. Current TF is adequate to meet pt est nutritional needs. Full nutritional assessment is in process intervention. RD will monitor pt progress.
[2017-01-22 11:46] VITALS: BP 137/59
[2017-01-22 13:19] LABS: FUNGUS STAIN Final report (())
[2017-01-22 15:23] VITALS: BP 138/59
--- NOTE | 2017-01-22 17:45 | NUR ---
RECEIVED REPORT, WILL ASSUME CARE OF PT, PT DENIES ANY NEEDS, BED IS LOW, SRX2, CALL LIGHT IN REACH, WILL CONTINUE PLAN OF CARE
[2017-01-22 18:09] LABS: ACID FAST SMEAR Negative (()); AFB SPECIMEN PROCESSING Concentration (())
[2017-01-22 20:02] VITALS: BP 128/59
--- NOTE | 2017-01-22 20:22 | NUR ---
STARTED 4 CAN OF OSMOLITE 1.5,@ 90ML
[2017-01-23 00:35] VITALS: BP 132/57
--- NOTE | 2017-01-23 04:30 | NUR ---
CIRCUS ARTIST AT BEDSIDE TO OBTAIN VITALS, CALL LIGHT IN REACH. WILL CONTINUE TO MONITOR.
--- NOTE | 2017-01-23 05:00 | NUR ---
ASSESSMENT COMPLETE, SEE FLOWSHEET, PT SLEEPING, CALL LIGHT IN REACH, WILL CONTINUE TO MONITOR
[2017-01-23 05:38] VITALS: BP 121/65
[2017-01-23 05:48] LABS: BASOPHILS 0.2 % (0-2); EOSINOPHILS 2.1 % (0-7); HEMATOCRIT 31.8 % (36.0-48.0); HEMOGLOBIN 9.4 g/dL (12-16); IMMATURE GRANULOCYTES 0.1 % (0-5); LYMPHOCYTES 11.1 % (15-50); MCH 22.4 pg (26.0-34.0); MCHC 29.6 g/dL (31.0-37.0); MCV 75.7 fL (80.0-100.0); MEAN PLATELET VOLUME 10.6 fL (7.4-10.4); NEUTROPHILS 79.5 % (40-80); PLATELET COUNT 382 10x3/uL (130-400); RDW 15.9 % (11.5-14.5)
[2017-01-23 05:58] LABS: WBC 8.5 10x3/uL (4.8-10.8)
[2017-01-23 06:09] LABS: CALC OSMOLALITY 281 mosm/kg (275-300); CALCIUM 8.3 mg/dL (8.5-10.1); CARBON DIOXIDE 27.8 mmol/L (21.0-32.0); CHLORIDE - SERUM 104 mmol/L (98-107); CREATININE - SERUM 0.7 mg/dL (0.6-1.3); GLUCOSE 145 mg/dL (74-106); MAGNESIUM - SERUM 1.9 mg/dL (1.8-2.4); PHOSPHOROUS 3.3 mg/dL (2.5-4.9); SODIUM 139 mmol/L (136-145); UREA NITROGEN 15 mg/dL (7-18); eGFR NON AFRICAN AMERICAN 85 mL/min (90-120)
[2017-01-23 06:18] LABS: POTASSIUM - SERUM 3.9 mmol/L (3.5-5.1)
--- NOTE | 2017-01-23 07:00 | NUR ---
AM ROUNDING DONE WITH PATIENT HAVING ON PERCUSSION VEST ON AND IN USE, COUGHING UP CLEAR SPUTUM. ON 3L HUMMIDIFIED O2 PER NC. RIGHT IP SEEN WITH D5NS INFUSING AT 50 CC/HR. J TUBE SEEN WITH OSMOLITE INFUSING, FINISHED NOW. J TUBE IS FLUSHED WELL AND CLAMPED. ON EP, LAB VALUES ARE WNL. WILL CPOC.
[2017-01-23 08:00] VITALS: BP 136/56
--- NOTE | 2017-01-23 09:56 | NUR ---
DRESSING TO J TUBE CHANGED. SITE WAS CLEANED WITH SOAP AND WATER. SITE IS RED AND IRRITATED LOOKING. NYSTATIN CREAM WAS PLACED OVER SITE, CLEAN DRAIN SPONGE, AND SECRUED WITH MEDIPORE TAPE. DATED. TOLERATED WELL.
--- NOTE | 2017-01-23 11:14 | NUR ---
Patient Name: LIZ JOYCE Admission Status: Elective Accout number: [id number] Admission Date: 01-21-2017 : 1935 Admission Diagnosis: Attending: LEISA Current LOS: 2 Anticipated DC Date: Planned Disposition: Home Primary Insurance: MEDICARE A & B LATE ENTRY FROM 01-22-17: Discharge Planning Comments: * Is the patient Alert and Oriented? Yes 0 * How many steps to enter\exit or inside your home? 4 0 * PCP DR. ZAMUDIO 0 * Pharmacy [facility] 0 * Preadmission Environment Home Alone 0 * ADLs Independent 0 * Equipment [facility] Rolling Walker Walker 0 * Other Equipment HOME AND PORTABLE OXYGEN [facility] - MEDICAL EQUIPMENT PROVIDER PREFERNECE 0 * List name and contact numbers for known caregivers / representatives who currently or will assist patient after discharge: BRIE ECHEVERRIA, SON, 0 * Community resources currently utilized Private Duty Care 0 * Please name any agencies selected above. AGENCY UNKNOWN - ASSISTANCE WITH HOUSEKEEPING AND MEAL PREPARATION SON LIVES NEXT DOOR AND ASSISTS NEEDED 0 * Additional services required to return to the preadmission environment? No 0 * Can the patient safely return to the preadmission environment? Yes 0 * Has this patient been hospitalized within the prior 30 days at any hospital? No 0 CM MET WITH PT IN ROOM TO DISCUSS DISCHARGE PLANNING AND NEEDS. PT REPORTS LIVING AT HOME INDEPENDENTLY AND ALONE. PT HAS HOME AND PORTABLE OXYGEN, WALKER AND ROLLING WALKER, PROVIDER IS [facility]. PT HAS PERSONAL CARE THAT SHE PRIVATELY PAYS FOR MEALS PREPARATION AND HOUSEKEEPING. PT HAS NO OTHER CURRENT OUTSIDE SERVICES ASSISTING IN THE HOME. CM DISCUSSED AVAILABILITY OF HOME HEALTH, REHAB SERVICES AND MEDICAL EQUIPMENT. PT DENIES DISCHARGE NEEDS, REPORTS HER SON WILL PICK HER UP FOR DISCHARGE HOME. CM TO FOLLOW AND ASSIST IF NEEDED. Irrigator: Mundo Finley
--- NOTE | 2017-01-23 11:22 | NUR ---
WARM WATER AND SOAPY RAGS SET UP FOR PATIENT TO GIVE HERSELF AM CARE.
[2017-01-23 12:00] VITALS: BP 127/50
--- NOTE | 2017-01-23 13:22 | NUR ---
READING A BOOK, DENIES NEEDS AT PRESENT TIME. WILL CPOC.
--- NOTE | 2017-01-23 14:45 | NUR ---
1445-DRESSING TO RIGHT IP CAHNGED USING STERILE TECHNIQUE. DRESSING CHANGE TO J TUBE CHANGED AGAIN ORDERED. TOLERATED BOTH WELL.
[2017-01-23 16:00] VITALS: BP 129/52
--- NOTE | 2017-01-23 17:29 | NUR ---
NEW SUCTION TUBING AND YANKER SET UP FOR PATIENT. VOICES NO OTHER NEEDS AT THIS TIME. SHE REALLY DID NOT WANT ME TO CHANGE THE TUBING "IT WILL TURN DARK AGAIN".
[2017-01-23 19:00] VITALS: BP 131/59
--- NOTE | 2017-01-23 19:32 | NUR ---
PT IN BED READING A BOOK DENIES NEEDS AT THIS TIME WILL CONTINUE TO MONITOR
--- NOTE | 2017-01-24 00:36 | NUR ---
FOOD PROCESSING CHEMIST AT BEDSIDE TO OBTAIN VITALS, CALL LIGHT IN REACH. WILL CONTINUE WITH PLAN OF CARE.
[2017-01-24 04:00] VITALS: BP 139/60
--- NOTE | 2017-01-24 07:12 | NUR ---
PT SITTING UP IN BED WATCHING TV DENIES NEEDS WILL CONT TO MONITOR
[2017-01-24 07:40] LABS: PHOSPHOROUS 3.7 mg/dL (2.5-4.9); POTASSIUM - SERUM 3.9 mmol/L (3.5-5.1)
[2017-01-24 08:25] VITALS: BP 137/57
[2017-01-24 12:04] VITALS: BP 136/66
[2017-01-24 14:30] VITALS: BP 132/48
[2017-01-24 17:22] VITALS: BP 175/75
--- NOTE | 2017-01-24 17:24 | NUR ---
PT DECISION ANALYST LIGHT C/O DIZZINESS. BP IS 175/75 OTHER VS ARE WNL. PAGED DR ZAMUDIO FOR PRN BP MEDICATION. PT REPORTS SHE IS ALSO ANXIOUS WILL PRN XANAX
--- NOTE | 2017-01-24 17:29 | NUR ---
DR ZAMUDIO SAID THAT PT CAN NOT HAVE A PRN FOR BP BECAUSE HER BP WILL BOTTOM OUT IF WE DO. TOLD HIM THAT I DID GIVE PT A XANAX FOR HER C/O ANXIETY. DR ZAMUDIO SAID THAT WAS FINE AND NO PRN BP MED WAS NEEEDED. WILL CONT TO MONITOR
--- NOTE | 2017-01-24 18:13 | NUR ---
PT SITTING UP IN BED HELPED PT TO BATHROOM AND BACK DENIES ANY OTHER NEEDS
[2017-01-24 20:00] VITALS: BP 132/76
--- NOTE | 2017-01-24 20:36 | NUR ---
PT RESTING IN BED WITH NO DISTRES. ALERT/ORIENTED. O2 @ 3L/NC WITH NONLABORED RESPIRATIONS. RIGHT CW IMPLANTED PORT WITH NS @ KVO. JTUBE WITH NIGHTTIME FEEDINGS TO BE SET UP. SEE ASSESSMENT. CPOC.
--- NOTE | 2017-01-24 23:23 | NUR ---
BED TIME MEDS GIVEN. PT RESTING WITH NO DISTRESS.
[2017-01-25 04:00] VITALS: BP 124/62
--- NOTE | 2017-01-25 05:17 | NUR ---
DELAYED START TO PT'S ORDERED OVERNIGHT TUBEFEEDING. STARTED OSMOLITE @ 90ML/HR X 4 CANS VIA PUMP AT 0430 TO HER JTUBE. NO WATER BOLUS PER PT REQUEST. HAVE ADDED PT'S NUTRITIONAL SUPPLEMENT TO HER STATUS BOARD SO THAT THERE WILL BE LESS CHANCE OF IT BEING MISSED AGAIN.
[2017-01-25 05:21] LABS: MAGNESIUM - SERUM 2.2 mg/dL (1.8-2.4); PHOSPHOROUS 4.5 mg/dL (2.5-4.9); POTASSIUM - SERUM 3.9 mmol/L (3.5-5.1)
[2017-01-25 08:00] VITALS: BP 124/57
--- NOTE | 2017-01-25 08:21 | NUR ---
ASSESSMENT DONE. DENIES NEEDS
--- NOTE | 2017-01-25 10:22 | NUR ---
UP TO BR. NO NEEDS INDICATED AT THIS TIME. WILL MONITOR.
[2017-01-25 12:00] VITALS: BP 131/55
[2017-01-25 16:00] VITALS: BP 134/56
--- NOTE | 2017-01-25 17:00 | NUR ---
WITHOUT CHANGES OR DISTRESS NOTED ATB THIS TIME. DENIES NEEDS AT THIS TIME..
[2017-01-25 19:00] VITALS: BP 140/66
--- NOTE | 2017-01-25 20:24 | NUR ---
INITIAL ROUNDS COMPLETED AT 1910 HRS. PT DENIED ANY DISCOMFORT. ASSESSMENT COMPLETED AT 1999 HRS. VSS. O2 3LNC. LUNGS DIMINISHED IN BASES BILAT. IV TO R INFUSAPORT WITH NS AT 10CC/HR. IV PATENT. PEG TUBE SL. WILL CONTINUE TO MONITOR. CALL LIGHT WITHIN REACH.
--- NOTE | 2017-01-25 22:19 | NUR ---
PM MEDS GIVEN. PEG TUBE AEA RED. AREA CLEANED WITH WOUND CLEAN AND PATTED DRY. CREAM APPLIED PER ORDER AND NEW DRAIN SPONGE PLACED. OSMOLITE 1.5 AT 90 CC/HR INITIATED. PT CURRENTLY RESTING WITH EYES CLOSED. RESP EVEN AND REGULAR. SR UP X2, CALL LIGHT WITHIN REACH.
[2017-01-26] VITALS: BP 135/57
--- NOTE | 2017-01-26 00:07 | NUR ---
PT RESTING WITH EYES CLOSED. RESP EVEN AND REGULAR. SR UP X2, CALL LIGHT WITHN REACH AND HOB UP APPROX 40 DEGREES.
--- NOTE | 2017-01-26 02:09 | NUR ---
PT RESTING WITH EYES CLOSED. RESP EVEN AND REGULAR. SR UP X2, CALL LIGHT WITHIN REACH.
[2017-01-26 04:00] VITALS: BP 144/53
--- NOTE | 2017-01-26 04:04 | NUR ---
PT RESTING WITH EYES CLOSED. RESP EVEN AND REGULAR. SR UP X2, CALL LIGHT WITHIN REACH.
--- NOTE | 2017-01-26 06:20 | NUR ---
VSS THROUGHOUT NIGHT. PT DENIED ANY DISCOMFORT. HS TUBE FEEDING COMPLETED. PEG TUBE FLUSHED WITH 100CC OF H2O. NEEDS MET; WILL CONTINUE TO MONITOR.
--- NOTE | 2017-01-26 07:18 | NUR ---
ASSESSMENT DONE. DENIES NEEDS.
[2017-01-26 08:00] VITALS: BP 146/67
--- NOTE | 2017-01-26 09:39 | NUR ---
RESP UL ON . IV PATENT. CALL LIGHT IN REACH. WILL CONT. PLAN OF CARE.
[2017-01-26 16:00] VITALS: BP 131/66
--- NOTE | 2017-01-26 17:29 | NUR ---
WITHOUT CHANGES OR DISTRESS NOTED AT THIS TIME. DENIES NEEDS.
[2017-01-26 20:00] VITALS: BP 133/710
--- NOTE | 2017-01-26 20:11 | NUR ---
INITIAL ROUNDS COMPLETED AT 1920 HRS. PT DENIED ANY DISCOMFORT. ASSESSMENT COMPLETED AT 1950 HRS. O2 3LNC. LUNGS DIMINISHED IN BASES BILAT. IV TO R INFUSAPORT WITH NS AT 10CC/HR. IV PATENT. PEG TUBE CLAMPED. PT DENIED ANY DISCOMFORT. WILL CONTINUE TO MONITOR. SR UP X2, CALL LIGHT WITHIN REACH.
--- NOTE | 2017-01-26 22:18 | NUR ---
PM MEDS GIVEN. OSMOLITE 1.5 AT 90CC/HR FOR 4 CANS STARTED AT 2049. WILL CONTINUE TO MONITOR.
--- NOTE | 2017-01-27 00:32 | NUR ---
PT RESTING WITH EYES CLOSED. RESP EVEN AND REGULAR. SR UP X2, CALL LIGHT WITHIN REACH.
--- NOTE | 2017-01-27 02:43 | NUR ---
PT RESTING WITH EYES CLOSED. RESP EVEN AND REGULAR. SR UP X2, CALL LIGHT WITHIN REACH.
[2017-01-27 04:00] VITALS: BP 127/55
--- NOTE | 2017-01-27 05:04 | NUR ---
PT AWAKE; DENIES ANY DISCOMFORT. WILL CONTINUE TO MONITOR.
[2017-01-27 05:20] LABS: BASOPHILS 0.4 % (0-2); HEMATOCRIT 32.5 % (36.0-48.0); HEMOGLOBIN 9.3 g/dL (12-16); IMMATURE GRANULOCYTES 0.2 % (0-5); LYMPHOCYTES 32.6 % (15-50); MCH 22.1 pg (26.0-34.0); MCHC 28.6 g/dL (31.0-37.0); MCV 77.4 fL (80.0-100.0); MEAN PLATELET VOLUME 10.6 fL (7.4-10.4); MONOCYTES 11.1 % (2-11); NEUTROPHILS 50.7 % (40-80); PLATELET COUNT 420 10x3/uL (130-400); RDW 15.5 % (11.5-14.5); WBC 5.4 10x3/uL (4.8-10.8)
--- NOTE | 2017-01-27 06:16 | NUR ---
VSS THROUGHOUT NIGHT. PT DENIED ANY DISCOMFORT. NEEDS MET; WILL CONTINUE TO MONITOR.
[2017-01-27 08:00] VITALS: BP 149/59
--- NOTE | 2017-01-27 10:49 | NUR ---
PT AWAKE AT THIS TIME. SPO2 99 ON 3 LITERS. TURNED DOWN TO 2 LITERS. BILATERAL DIMINISHED AND CLEAR BREATH SOUNDS NOTED. NO S\S OF DYSPNEA OR RESPIRATORY DISTRESS NOTED.
[2017-01-27 19:00] VITALS: BP 147/65
--- NOTE | 2017-01-27 20:48 | NUR ---
HS MEDS GIVEN WITH FRESH ICE WATER. OSMOLITE 1.5 JOSE INFUSING TO J TUBE. PT DENIES NEEDS AT THIS TIME, BED LOW, CL IN REACH.
--- NOTE | 2017-01-28 03:28 | NUR ---
RESTING WITH EYES CLOSED, RESPERATIONS EVEN, NO S/S DISTRESS NOTED.
--- NOTE | 2017-01-28 03:45 | NUR ---
RESTING IN BED WITH NO DISTRESS. TF IN PROGRESS. CPOC.
[2017-01-28 04:00] VITALS: BP 128/54
--- NOTE | 2017-01-28 07:15 | NUR ---
RESTING QUIETLY RESP UNLABORED NAD NOTED
--- NOTE | 2017-01-28 07:20 | NUR ---
ASSESSMENT COMPLETED. ALERT AND ORIENTED. 02 AT 3 L/M PER NC. RIGHT CHEST IP, PATENT. J TUB TO ABD, FLUSHED AND CLAMPED. DENIES ANY NEEDS. WILL MONITOR
[2017-01-28 08:18] VITALS: BP 144/63
[2017-01-28 11:17] LABS: FUNGUS MYCOLOGY CULTURE Preliminary report (())
[2017-01-28 12:23] VITALS: BP 145/64
--- NOTE | 2017-01-28 15:04 | NUR ---
PT HAS A J TUBE. HAS FEEDINGS AT NIGHT. NO NEEDS VOICED
--- NOTE | 2017-01-28 15:32 | NUR ---
HOB UP READING A BOOK. DENIES ANY NEEDS. SR UP WITH CALL LIGHT IN REACH
[2017-01-28 17:06] VITALS: BP 146/61
--- NOTE | 2017-01-28 18:52 | NUR ---
SPOKE WITH AND HE GAVE ORDERS THAT PATIENT SHOULD BE ADMITTED UNDER DR.WILLIAM SAM. ALSO RECEIVED ORDERS TO TAKE 'S NAME OFF OF PATIENT. ORDER PLACED UNDER NURSING MESSAGE AND CALLED ER REGISTER TO HAVE PHYSICIAN NAMES SWITCHED. ORDER FAXED TO 1054.
--- NOTE | 2017-01-28 21:17 | NUR ---
HS MEDS GIVEN WITH FRESH ICE WATER. OSMOLYITE 1.5 JOSE INFUSING TO J TUBE AT 90 CC/HR. INSERTION SITE OF J TUBE CLEANED WITH WOUND CLEANSER, APPLIED MYCOSTATIN CREAM, AND REPLACED DRAIN SPONGES. PT TOLERATED WELL. OFFERED PT PAIN MEDICAITON, PT DECLINED AT THIS TIME, STATING THAT SHES IN NOT HURTING AT THIS TIME.
[2017-01-29] VITALS (9 sets, daily range): BP systolic 101–159; BP diastolic 38–76
--- NOTE | 2017-01-29 03:36 | NUR ---
IV TUBING AND SECONDARY TUBING CHANGED AND LABELLED ACCORDINGLY.
--- NOTE | 2017-01-29 04:20 | NUR ---
RESTING WITH EYES CLOSED, RESPERATIONS EVEN, NO S/S DISTRESS NOTED.
[2017-01-29 06:25] LABS: BASOPHILS 0.6 % (0-2); HEMATOCRIT 32.8 % (36.0-48.0); HEMOGLOBIN 9.4 g/dL (12-16); IMMATURE GRANULOCYTES 0.2 % (0-5); LYMPHOCYTES 24.7 % (15-50); MCHC 28.7 g/dL (31.0-37.0); MCV 76.6 fL (80.0-100.0); MEAN PLATELET VOLUME 10.6 fL (7.4-10.4); MONOCYTES 8.6 % (2-11); NEUTROPHILS 59.9 % (40-80); PLATELET COUNT 385 10x3/uL (130-400); RBC 4.28 10x6/uL (4.00-5.40); RDW 15.6 % (11.5-14.5); WBC 4.7 10x3/uL (4.8-10.8)
[2017-01-29 06:44] LABS: CALC OSMOLALITY 279 mosm/kg (275-300); CALCIUM 8.5 mg/dL (8.5-10.1); CARBON DIOXIDE 26.1 mmol/L (21.0-32.0); CHLORIDE - SERUM 102 mmol/L (98-107); CREATININE - SERUM 0.7 mg/dL (0.6-1.3); GLUCOSE 140 mg/dL (74-106); POTASSIUM - SERUM 4.2 mmol/L (3.5-5.1); SODIUM 137 mmol/L (136-145); UREA NITROGEN 24 mg/dL (7-18); eGFR NON AFRICAN AMERICAN 85 mL/min (90-120)
--- NOTE | 2017-01-29 07:36 | NUR ---
AM ROUNDS- PT IN BED, C/O NAUSEA, WILL ADMINISTERED 8MG OF ZOFRAN ORDERED. PT DENIES ANY OTHER NEEDS AT THIS TIME. BED LOW AND WHEELS LOCKED, BEDSIDE RAILS X2, CALL LIGHT IN REACH, RT CHEST INFUSING PORT INFUSING NS AT KVO, RESP EVEN AND UNLABORED AT 3L NC. NAD NOTED, WILL CONITNUE TO MONITOR.
--- NOTE | 2017-01-29 08:46 | NUR ---
AM MEDS GIVEN AT THIS TIME. ALSO PROVIDED DRESSING CHANGE TO PEG TUBE SITE, APPLIED MYCOSTATIN CREAM AND COVERED SITE WITH NON WOVEN DRAIN SPONGE. PT TOLERATED PROCEDURE WELL. DNEIES ANY NEEDS AT THIS TIME. DR. SAM AT BEDSIDE TO ASSESS PT. NAD NOTED, CALL LIGHT IN REACH, WILL CONTINUE TO MONITOR.
--- NOTE | 2017-01-29 12:23 | NUR ---
PT C/O OF PAIN OF 4/10 TO RT LEG. 500MG OF TYLENOL GIVEN. PT DENIES ANY OTHER NEEDS AT THIS TIME. CALL LIGHT IN REACH, NAD NOTED, WILL CONTINUE TO MONITOR.
--- NOTE | 2017-01-29 15:24 | NUR ---
Nutrition follow-up: Diet: Regular TF of Osmolite 1.5 jairon nocturnal x 12 hours @ 90 ml/hr Pt eating small meals during the day. Wt: 137# Pt with no c/o today. RDN following.
--- NOTE | 2017-01-29 20:00 | NUR ---
INTRODUCED MYSELF TO PT PRIMARY RN FOR [facility] SHIFT. PT IS USING BR AT THIS TIME AND DENIES ANY CURRENT PAIN OR NEEDS. WILL CHECK CHART AND ORDERS AND PULL NIGHTLY MEDS AND CPOC.
--- NOTE | 2017-01-29 21:00 | NUR ---
NIGHTLY MEDICATIONS PASSED AND PT SWALLOWED WITHOUT ANY DIFFICULTIES. CHANGED OUT PTS LUQ DRSG TO HER G-TUBE. INCISION LOOKS GOOD WITH SLIGHT REDDNESS NOTED AROUND SITE. CLEANSED WITH WOUND CLEANSER PATTED DRY AND APPLIED OINTMENT ORDERED. APPLIED VOLODYMYR ROMERO DRSG AND TAPED DOWN. INITIATED TUBE FEEDINGS OF OSMOLITE @90ML/HR FOR A TOTAL OF FOUR CANS WITH NO FLUSH. PTS ABDOMEN SOFT AND NONDISTENDED. BS ACTIVE X4. PT DENIES ANY PAIN OR ABDOMINAL DISCOMFORT. PTS HAS R.CHEST INFUSAPORT WITH BIOPATCH IN PLACE, DRSG CDI AND PORT IS PATENT WITH NS @KVO FOR INTERMITT. ANBX. PT RESTING AND WOULD LIKE TO READ BEFORE BED. DENIES ANY CURRENT PAIN OR NEEDS AT THIS TIME. CL IN REACH, BED IN LOWEST, SIDE RAILS X2. WILL CPOC.
--- NOTE | 2017-01-29 22:03 | NUR ---
EXPLAINED PROCESS FOR CLEAN CATCH SPECIMEN AND LET PT KNOW THAT WE NEED A URINE ONE ON HER. PT VERABLIZED UNDERSTANDING AND STATES SHE WILL PROVIDE SOON AVAILABLE. SUPPLIES GIVEN TO PT AND AT BEDSIDE WITH HER BEDSIDE COMMODE.
--- NOTE | 2017-01-30 02:03 | NUR ---
INITIATED PTS IVPB INFUSING VIA R.CHEST IP WITH DRSG CDI AND SWAB CAPS IN USE. PT RESTING QUIETLY IN BED. G-TUBE FEEDING IN PROGRESS AT 90ML/HR PT DENIES ANY CURRENT DISCOMFORT OR NEEDS. CL IN REACH, BED IN LOWEST, SIDE RAILS X2. WILL CPOC.
[2017-01-30 04:00] VITALS: BP 135/63
--- NOTE | 2017-01-30 04:55 | NUR ---
BLOOD DRAW DONE VIA R.CHEST IP ACCESS. FLUSHED AFTERWARDS AND HAVE NS RUNNING KVO. BLOOD TUBES SENT TO LAB. PT REQUESTED AND WAS PROVIDED WITH PRN TYLENOL FOR ACHING PAINS IN BILAT LEGS. CL IN REACH, BED IN LOWEST, SIDE RAILS X2. WILL CPOC.
[2017-01-30 05:15] LABS: BASOPHILS 0.4 % (0-2); EOSINOPHILS 5.5 % (0-7); HEMATOCRIT 31.2 % (36.0-48.0); HEMOGLOBIN 9.1 g/dL (12-16); IMMATURE GRANULOCYTES 0.2 % (0-5); LYMPHOCYTES 25.9 % (15-50); MCH 22.2 pg (26.0-34.0); MCHC 29.2 g/dL (31.0-37.0); MCV 76.3 fL (80.0-100.0); MEAN PLATELET VOLUME 10.7 fL (7.4-10.4); MONOCYTES 11.8 % (2-11); NEUTROPHILS 56.2 % (40-80); PLATELET COUNT 365 10x3/uL (130-400); RBC 4.09 10x6/uL (4.00-5.40); RDW 15.6 % (11.5-14.5); WBC 5.1 10x3/uL (4.8-10.8)
--- NOTE | 2017-01-30 05:35 | NUR ---
URINE SPECIMEN COLLECTED AND SENT TO LAB.
[2017-01-30 05:43] LABS: CALC OSMOLALITY 277 mosm/kg (275-300); CALCIUM 8.4 mg/dL (8.5-10.1); CARBON DIOXIDE 29.2 mmol/L (21.0-32.0); CHLORIDE - SERUM 102 mmol/L (98-107); CREATININE - SERUM 0.7 mg/dL (0.6-1.3); GLUCOSE 99 mg/dL (74-106); POTASSIUM - SERUM 4.1 mmol/L (3.5-5.1); SODIUM 137 mmol/L (136-145); UREA NITROGEN 23 mg/dL (7-18); eGFR NON AFRICAN AMERICAN 85 mL/min (90-120)
[2017-01-30 06:24] LABS: APPEARANCE CLEAR (CLEAR); BILIRUBIN NEGATIVE (NEGATIVE); COLOR YELLOW (YELLOW); GLUCOSE NEGATIVE (NEGATIVE); KETONE NEGATIVE (NEGATIVE); LEUKOCYTE ESTERASE NEGATIVE (NEGATIVE); NITRITE NEGATIVE (NEGATIVE); PROTEIN NEGATIVE (NEGATIVE); SPECIFIC GRAVITY 1.015 (1.005-1.020); UROBILINOGEN NORMAL (NORMAL)
[2017-01-30 08:00] VITALS: BP 149/57
--- NOTE | 2017-01-30 08:06 | NUR ---
ASSESSMENT DONE. DENIES NEEDS.
--- NOTE | 2017-01-30 10:11 | NUR ---
UP TO CHAIR. RESP UL ON . IV PATENT. CALL LIGHT IN REACH. WILL CONT. PLAN OF CARE.
[2017-01-30 12:00] VITALS: BP 137/61
[2017-01-30] MEDS ORDERED: [UNRECOGNIZED DRUG - OTHER] TOPICAL (15:08)
[2017-01-30 15:32] VITALS: BP 112/50
--- NOTE | 2017-01-30 17:58 | NUR ---
WITHOUT CHANGES OR DISTRESS NOTED AT THIS TIME. DENIES NEEDS.
[2017-01-30 19:00] VITALS: BP 147/56
--- NOTE | 2017-01-30 21:15 | NUR ---
ASSESSMENT COMPLETE. PT IS A&O X4. S1S2 AUDIBLE. SLIGHT EXPIRATORY WHEEZE HEARD BILAT THROUGHOUT ALL LOBES. SHE STATES THAT SHE HAS PAIN IN HER LEGS DUE TO HER NEUROPATHY. ADMINISTERED PRN PAIN MEDICATION. REPOSITIONED FOR COMFORT. CLEANED AND CHANGED J-TUBE BANDAGE. ADDED 4 CANS OF OSMOLITE 1.5 TO TF BAG. BOWEL SOUNDS ARE ACTIVE X4. HELPED AMBULATE TO BSC. GAIT IS STEADY. PT IS NOW BACK IN BED AND STATES THAT SHE IS READY FOR BED. WILL CONT WITH POC.
--- NOTE | 2017-01-31 03:45 | NUR ---
PT RESTING PEACEFULLY. IV ANTIBIOTICS ARE FINISHED INFUSING. NO SIGNS OF DISTRESS NOTED. WILL CONT WITH POC.
--- NOTE | 2017-01-31 05:01 | NUR ---
RESTARTED TF. ERROR WAS HOLDING IT FOR A BRIEF MOMENT. PT DENIES ANY NEEDS AT THIS TIME. WILL CONT WITH POC.
[2017-01-31 07:05] LABS: ANION GAP 10.9 mmol/L (8-16); CALCIUM 8.5 mg/dL (8.5-10.1); CARBON DIOXIDE 28.3 mmol/L (21.0-32.0); CREATININE - SERUM 0.8 mg/dL (0.6-1.3); POTASSIUM - SERUM 4.2 mmol/L (3.5-5.1)
[2017-01-31 07:42] LABS: HEMATOCRIT 31.2 % (36.0-48.0); HEMOGLOBIN 9.1 g/dL (12-16); LYMPHOCYTES 32.3 % (15-50); MCHC 29.2 g/dL (31.0-37.0); MCV 75.4 fL (80.0-100.0); MEAN PLATELET VOLUME 10.3 fL (7.4-10.4); NEUTROPHILS 54.1 % (40-80); PLATELET COUNT 305 10x3/uL (130-400); RBC 4.14 10x6/uL (4.00-5.40); RDW 14.4 % (11.5-14.5); WBC 4.6 10x3/uL (4.8-10.8)
[2017-01-31 08:00] VITALS: BP 131/56
--- NOTE | 2017-01-31 08:09 | NUR ---
ASSESSMENT DONE. DENIES NEEDS.
--- NOTE | 2017-01-31 10:00 | NUR ---
RESTS IN BED. CM AT BS. CALL LIGHT IN REACH. WILL CONT. PLAN OF CARE.
[2017-01-31 12:25] VITALS: BP 140/65
--- NOTE | 2017-01-31 12:42 | NUR ---
Patient Name: LIZ JOYCE Encounter No: [id number] : 1935 Primary Insurance: MEDICARE A & B Anticipated DC Date: 01-31-2017 Planned Disposition: Home WITH HOME HEALTH External Planned Provider: [facility] DCP follow-up note: CM RECEIVED DISCHARGE ORDER, MET WITH PT IN ROOM WHO REQUESTED HOME HEALTH, HER SON WILL TUNE UP MECHANIC, PT DENIES FURHTER DISCHARGE NEEDS. CM PROVIDED AND DISCUSSED IMPORTANT MESSAGE FROM MEDICARE. PT CHOICE SIGNED FOR [facility] PT HAS USED THEM IN THE PAST AFTER EACH ADMISSION TO THE HOSPITAL. CM CALLED DR. SAM AND OBTAINED HOME HEALTH ORDERS. CM CALLED [facility], , SPOKE TO KELVIN WHO WILL ACCEPT PT FOR ADMISSION NEXT FRIDAY AND EARLIER IF THEY HAVE AN UNEXPECTED CANCELLATION. CM NOTIFIED PT WHO IS IN AGREEMENT AND DID NOT WANT TO USE ANOTHER AGENCY. CM FAXED HOME HEALTH REFERRAL TO [facility] AT [phone]. Mundo Finley, CASE MANAGEMENT
--- NOTE | 2017-01-31 14:38 | NUR ---
DC HOME PER PERSONAL CAR
--- NOTE | 2017-02-03 13:26 | HP ---
PATIENT: LIZ JOYCE MEDICAL RECORD: [id number] ACCOUNT: [id number] LOCATION:[address] : 37 ADMISSION DATE: 01/21/17 HISTORY AND PHYSICAL EXAMINATION DATE OF ADMISSION: 01/21/2017 This patient is admitted after bronchoscopy for [id number] exacerbation of bronchiectasis. HISTORY OF PRESENT ILLNESS: This is a 81-year-old white female with a history of bronchiectasis and asthma/COPD. She sees Dr. Jacques on a regular basis since Dr. Jacques saw her last, she had been on 4 rounds of antibiotics for respiratory infections so he scheduled bronchoscopy for today and this was done and it showed copious secretions in her lungs and low-grade fever. It was decided to admit her, start IV antibiotics and follow up on cultures that were done during the bronchoscopy. Dr. Jacques will be following along with this. PAST MEDICAL AND SURGICAL HISTORY: Again, bronchiectasis, asthma/mild COPD, hypothyroidism, orthostatic hypotension, history of TB, multiple treatments for pneumonia/bronchiectasis episodes, history of chronic low back pain and she had a stroke in 2007 and has had paroxysmal atrial fibrillation. She has history of squamous cell carcinoma of the face, severe gastroparesis and esophageal stricture with dilatation. PAST SURGICAL HISTORY: Cholecystectomy, cataract surgery bilaterally, appendectomy, lumbar discectomy times 3, a gastrojejunal tube placement. She has had a thyroid tumor removed, has had a hysterectomy. She has had a right oophorectomy carpal tunnel release, cervical spine surgery and exploratory laparotomy. ALLERGIES: SULFA, MORPHINE, ADHESIVE TAPE, PENICILLIN AND LEVAQUIN. FAMILY HISTORY: Father at 54 from TB. Mother at 86 from renal failure and had migraine headaches. Sister at 54 and another at 63 from heart disease and breast cancer. Brother with heart disease and hypertension. SOCIAL HISTORY: , retired and lives alone. Family lives next door. HABITS: Never smoked. No alcohol or drugs. REVIEW OF SYSTEMS: GENERAL: No major weight changes. HEENT: No particular sinus or allergy problems. RESPIRATORY: See above history, followed by Dr. Jacques. CARDIAC: Has history of paroxysmal atrial fibrillation with ablation many years ago. She has tachycardia. GASTROINTESTINAL: Again, history of gastroparesis with a jejunostomy tube placed several years ago and EGD with balloon dilatation of the esophagus in April [address] Negro. MUSCULOSKELETAL: Recurrent pain mostly in her back after surgeries. NEUROLOGIC: History of CVA in 2007 with no obvious residual effects. PSYCHIATRIC: She has had some anxiety. HOME MEDICATIONS: Please MAR for that. HISTORY AND PHYSICAL [id number] LIZ JOYCE PHYSICAL EXAMINATION: VITAL SIGNS: Temperature 98.8, pulse 93, respirations 20, O2 sat 97% on 2 liters. GENERAL: She is awake and alert. She does not appear in acute distress at this time. HEENT: Grossly within normal limits. NECK: Supple, no JVD. HEART: Regular rate and rhythm. LUNGS: She has diminished breath sounds, crackles in the bases bilaterally. No wheezes. ABDOMEN: Soft, J-tube is present on the left side of the abdomen. EXTREMITIES: No edema. LABORATORY DATA: INR is 1.05. CBC with a white count of 13,100, hemoglobin 9.6, hematocrit 32.4, platelets number 407,000. ASSESSMENT: 1. Vucba-gr-zksxdmi exacerbation of bronchiectasis with bronchoscopy done today by Dr. Jacques in cultures pending. 2. Mild persistent asthma/chronic obstructive pulmonary disease. 3. Chronic cough. 4. Reflux. 5. Gastrostomy tube feedings due to esophageal stricture and gastroparesis. 6. History of paroxysmal atrial fibrillation. 7. Hypothyroidism. PLAN: IV antibiotics, O2 as needed, VEST twice a day, probiotics control her cough, GI stress ulcer prophylaxis, DVT prophylaxis. Continue tube feeding at night, consult with Dr. Askew. Dr. Jacques is already following. Other tests or procedures as warranted. TRANSINT:[id number] Voice Confirmation ID: [id number] DOCUMENT ID: [id number] KEEGAN SAM MD at 1326 CC: [id number] DICTATION DATE: 02/02/17 1706 COMPLIANCE REPRESENTATIVE: 02/02/17 1800 DIS IN 01/31/17 [place] [id number] [place] [id number]
== END 2017-01-31 14:39 | disposition home health service (06) | DRG 189 ==
LOC: D.M2 08:59 → D.OPS 08:59 → D.M2 15:45 → D.OPS 15:46 → D.M2 15:47
PROVIDERS: Family Medicine; Internal Medicine Pulmonary Disease; Student in an Organized Health Care Education/Training Program; ADMIT Family Medicine
PROC: 0BB38ZX Excision of Right Main Bronchus, Via Natural or Artificial Opening Endoscopic, Diagnostic (ICD-10-PCS; 2017-01-21)
PROC: 0BB78ZX Excision of Left Main Bronchus, Via Natural or Artificial Opening Endoscopic, Diagnostic (ICD-10-PCS; principal; 2017-01-21 11:00)
DX: J96.21 Acute and chronic respiratory failure with hypoxia (principal); J15.6 Pneumonia due to other Gram-negative bacteria; A43.0 Pulmonary nocardiosis; J47.1 Bronchiectasis with (acute) exacerbation; J90 Pleural effusion, not elsewhere classified; J47.0 Bronchiectasis with acute lower respiratory infection; B96.5 Pseudomonas (aeruginosa) (mallei) (pseudomallei) as the cause of diseases classified elsewhere; E03.9 Hypothyroidism, unspecified; I10 Essential (primary) hypertension; I48.91 Unspecified atrial fibrillation; D64.9 Anemia, unspecified; K31.84 Gastroparesis; J30.9 Allergic rhinitis, unspecified; K21.9 Gastro-esophageal reflux disease without esophagitis; K22.2 Esophageal obstruction

== ENCOUNTER → 2017-02-13 10:38 | Outpatient (CLI) | payer MEDICARE, OTHER ==
[2017-01-22 09:48] VITALS: BMI 20.9
[~2017-02-13 10:38] MED LIST changes: +MYRBETRIQ25 MG PO; +[UNRECOGNIZED DRUG - OTHER] TOPICAL
== END | disposition home or self-care (01) ==
LOC: D.LABREF 10:38
DX: J18.9 Pneumonia, unspecified organism (principal)

== ENCOUNTER → 2017-03-17 07:11 | Outpatient (CLI) | payer MEDICARE, OTHER ==
[2017-01-22 09:48] VITALS: BMI 20.9
--- NOTE | ~2017-03-17 | HEMODYNAMI ---
PATIENT:LIZ JOYCE MEDICAL RECORD: [id number] : 39 LOCATION:[facility] ADMISSION DATE: 03/17/17 Generatedon:03/17/20178:39 Patient name: LIZ JOYCE Patient #: [id number] SSN: DO B: 1935 Date of study: 03/17/2017 Page: Of Hemodynamic Procedure Report Patient Data Patient Demographics Procedure consent was obtained First Name: LIZ Gender: Female Last Name: MARIA DEL CARMEN : 1935 Middle Initial: E Age: 81 year(s) Patient #: [id number] Race: Unknown Additional ID: [id number] Contact details Address: [address] [place] [address] State: [place] City: [facility] Zip code: [address] Admission Admission Data Admission Date: 03/17/2017 Admission Time: 7:11 Procedure Procedure Types Cath Procedure Peripheral Cath Diagnostic Procedure Miscellaneous Procedure Description Procedure Date Procedure Date: 03/17/2017 Procedure Start Time: 8:28 Procedure Staff Name Function Charlie Rousseau MD Performing Physician Latrice Brantley RT Scrub Elva Spencer RN Nurse Yanni Sawyer RN Nurse Bhaskar Hoff RT Monitor Procedure Data Cath Procedure Fluoroscopy Diagnostic fluoroscopy Total fluoroscopy Time: 1.2 time: 1.2 min min Diagnostic fluoroscopy Total fluoroscopy dose: dose: 0.01 mGy 0.01 mGy Contrast Material Contrast Material Type Amount (ml) Isovue 300 20 Hemodynamics Rest Pre Cath Intra NCS Post Cath Procedure Log Time Note 7:42:03 Time tracking: Regular hours 7:49:18 Patient received from Outpatients to IR Alert and oriented. Tansferred to table in Supine position. 7:49:19 Correct patient and procedure confirmed by team. 7:49:22 Signed procedure consent form obtained from patient. 7:49:23 ECG and BP/O2 sat monitors applied to patient. 7:49:25 Full Disclosure recording started 7:49:26 7:49:28 Pre-procedure instructions explained to patient. 7:49:28 Pre-op teaching completed and patient verbalized understanding. 7:49:30 Family in waiting room. 7:49:32 Patient NPO since Midnight. 7:49:37 Use device set IR Diagnostic 7:49:38 Bag Decanter opened to sterile field. 7:49:39 Sterile Angiographic Pack opened to sterile field. 7:49:49 Alarms reviewed by R. N. 7:49:49 Sharps counted by scrub and verified by R.N. 7:49:55 Right abdomen area was prepped with chlora-prep and draped in sterile fashion 8:26:47 --------ALL STOP TIME OUT------ 8:26:50 Final Timeout: patient, procedure, and site verified with staff and physician. All members of the team are in agreement. 8:26:55 Left abdomen site verified by team. 8:27:02 Sedation plan: Local Anesthetic Lidocaine 8:28:06 Procedure started. 8:28:56 Local anesthetic to Abdominal area with Lidocaine 1% by Charlie Rousseau MD.INITIAL ACCESS ONLY 8:29:09 [facility] .035 145 glide wire opened to sterile field. 8:29:16 Terumo 4FR Straight 65CM glide catheter opened to sterile field. 8:29:42 MYA JEJUNAL FEEDING TUBE 14FR. opened to sterile field. 8:35:18 Procedure ended.(Physican Out) 8:37:00 Fluoroscopy time 01.20 minutes. 8:37:05 Fluoroscopy dose: 0.01 mGy 8:37:05 Flurop Dose total: 0.01 8:37:55 Contrast amount:Isovue 300 20ml. 8:37:57 Sharps counted by scrub and verified by R.N. 8:37:59 Insertion/operative site no bleeding no hematoma. 8:38:05 Post Abdominal area:stable 8:38:46 Post procedure instruction explained to patient.Patient verbalizes understanding. 8:38:48 Procedure and supply charges have been captured, reviewed, submitted and are correct. 8:38:49 Report given to Other. 8:38:55 Patient transfered to Other with Wheelchair. Device Usage Item Name Manufacture Quantity Catalog Hospital Part Current Minim al Lot# / Number Charge Number Stock Stock Serial# Code Anaid Kay Microtek 1 [id number] 5 Medical Inc[employer] Sterile Cardinal 1 [id number] [id number] 5 Angiographic Health Pack [facility] 1 [id number] [id number] 5 [id number] RO[facility]NER .035 145 glide wire Terumo 4FR Terumo 1 [id number] [id number] 5 Straight 65CM glide catheter [facility] JEJUNAL BARRIEROMELIA 1 0200-14 [id number] 5 FEEDING TUBE 14FR. Signature Audit [place] Stage Time Signature Unsigned Intra-Procedure 03/17/2017 Bhaskar 8:39:11 AM Luis Eduardo RT (R) (CV) Signatures Monitor : Bhaskar Signature : Luis Eduardo RT Date : Time : [place] [address] [place] [address]
== END | disposition home or self-care (01) ==
LOC: D.OPS 07:11 → D.RAD 08:00 → D.OPS 08:00
DX: K31.84 Gastroparesis (principal)

== ENCOUNTER → 2017-04-29 11:01 | Outpatient (CLI) | payer MEDICARE, OTHER ==
[2017-01-22 09:48] VITALS: BMI 20.9
== END | disposition home or self-care (01) ==
LOC: D.RAD 11:00
DX: J47.9 Bronchiectasis, uncomplicated (principal)

== ENCOUNTER 2017-05-21 18:22 | Inpatient (IN) | payer MEDICARE, OTHER ==
[~2017-05-21] VITALS: Ht 175.3 cm; Wt 60.8 kg
--- NOTE | ~2017-05-21 | HEMODYNAMI ---
PATIENT:LIZ JOYCE MEDICAL RECORD: [id number] : 39 LOCATION:[facility] [address] ADMISSION DATE: 05/21/17 Generatedon:05/23/201715:13 Patient name: LIZ JOYCE Patient #: [id number] SSN: DO B: 1935 Date of study: 05/23/2017 Page: Of Hemodynamic Procedure Report Patient Data Patient Demographics Procedure consent was obtained First Name: LIZ Gender: Female Last Name: MARIA DEL CARMEN : 1935 Middle Initial: E Age: 82 year(s) Patient #: [id number] Race: Unknown Additional ID: [id number] Contact details Address: [address] [place] [address] State: [place] City: [facility] [place] Zip code: [address] Admission Admission Data Admission Date: 05/21/2017 Admission Time: 20:52 Room #: D.2225 Weight (lbs.): 133 Weight (kg.): 60.33 Procedure Procedure Types Cath Procedure Peripheral Cath Diagnostic Procedure Miscellaneous Procedure Description Procedure Date Procedure Date: 05/23/2017 Procedure Start Time: 15:01 Procedure Staff Name Function Charlie Rousseau MD Performing Physician Niyah Cote RT Monitor Bhaskar Hoff RT Scrub Yanni Sawyer RN Nurse Niyah Cote RT Cloth Finishing Range Tender Procedure Data Cath Procedure Fluoroscopy Diagnostic fluoroscopy Total fluoroscopy Time: 2.2 time: 2.2 min min Diagnostic fluoroscopy Total fluoroscopy dose: 10 dose: 10 mGy mGy Contrast Material Contrast Material Type Amount (ml) Isovue 300 20 Hemodynamics Rest Pre Cath Intra NCS Post Cath Procedure Log Time Note 14:39:56 Patient Weight : 133 lbs 14:40:44 Time tracking: Regular hours 14:52:24 Patient received from Med/Surg to IR Alert and oriented. Tansferred to table in Supine position. 14:52:31 Signed procedure consent form obtained from patient. 14:52:36 - 14:52:41 H&P Date Dictated: 05/23/2017 Within 30 days and on chart.. 14:52:43 Pre-procedure instructions explained to patient. 14:52:44 Pre-op teaching completed and patient verbalized understanding. 14:52:47 Family in waiting room. 14:52:52 Patient NPO since Breakfast. 14:59:12 Physician arrived 15:00:38 Use device set IR Diagnostic 15:00:43 Sterile Angiographic Pack opened to sterile field. 15:00:45 Bag Decanter (2002S) opened to sterile field. 15:00:48 --------ALL STOP TIME OUT------ 15:00:49 Final Timeout: patient, procedure, and site verified with staff and physician. All members of the team are in agreement. 15:01:01 Sedation plan: Local Anesthetic Medication:Lidocaine 15:01:08 Procedure started. 15:01:08 Full Disclosure recording started 15:01:22 [employer] [facility] .035 145 glide wire opened to sterile field. 15:01:24 Terumo 4FR Straight 100CM glide catheter opened to sterile field. 15:05:56 MYA JEJUNAL FEEDING TUBE 20FR. opened to sterile field and placed. 15:09:17 Procedure ended.(Physican Out) 15:09:49 Fluoroscopy time 02.20 minutes. 15:09:55 Fluoroscopy dose: 10 mGy 15:09:55 Flurop Dose total: 10 15:09:59 Contrast amount:Isovue 300 20ml. 15:10:01 Sharps counted by scrub and verified 15:10:10 Procedure and supply charges have been captured, reviewed, submitted an d are correct. Device Usage Item Name Manufacture Quantity Catalog Hospital Part Current Minim al Lot# / Number Charge Number Stock Stock Serial# Code [facility] 1 [id number] 5 [id number] [facility] .035 145 glide wire Terumo 4FR Terumo 1 [id number] 5 Straight 100CM glide catheter MYA JEJUNAL MORA 1 0200-14 801130 5 FEEDING TUBE 14FR. Sterile Cardinal 1 [id number] [id number] [id number] 5 Angiographic Health Pack Bag Decanter Microtek 1 [id number] [id number] 5 () Medical Inc. Signature Audit [place] Stage Time Signature Unsigned Intra-Procedure 05/23/2017 Niyah Cote 3:13:11 PM RT(R) Signatures Monitor : Niyah Cote RT Signature : Date : Time : [place] [id number] [place] [address]
[2017-05-21 19:17] LABS: BASOPHILS 0.1 % (0-2); EOSINOPHILS 0.4 % (0-7); HEMATOCRIT 32.3 % (36.0-48.0); HEMOGLOBIN 9.6 g/dL (12-16); IMMATURE GRANULOCYTES 0.4 % (0-5); LYMPHOCYTES 7.7 % (15-50); MCH 21.8 pg (26.0-34.0); MCHC 29.7 g/dL (31.0-37.0); MCV 73.4 fL (80.0-100.0); MEAN PLATELET VOLUME 10.5 fL (7.4-10.4); MONOCYTES 6.9 % (2-11); NEUTROPHILS 84.5 % (40-80); RDW 16.3 % (11.5-14.5); WBC 17.1 10x3/uL (4.8-10.8)
[2017-05-21 19:37] LABS: ALBUMIN 2.8 g/dL (3.4-5.0); ANION GAP 11.5 mmol/L (8-16); CALCIUM 8.8 mg/dL (8.5-10.1); CARBON DIOXIDE 26.4 mmol/L (21.0-32.0); CREATININE - SERUM 0.9 mg/dL (0.6-1.3); POTASSIUM - SERUM 3.9 mmol/L (3.5-5.1)
[2017-05-21 20:00] LABS: BILIRUBIN - TOTAL 0.33 mg/dL (0.2-1.3)
[2017-05-21 20:02] LABS: PLATELET COUNT 401 10x3/uL (130-400)
--- NOTE | 2017-05-21 23:52 | NUR ---
PT ARRIVIED TO MEDICAL SURGICAL UNIT WITH ER NURSE, PT ALERT AND ORIENTED.
[2017-05-22 01:00] VITALS: BP 110/48; BMI 19.8
--- NOTE | 2017-05-22 01:31 | NUR ---
ASSESSMENT PER ADMIT PACKET AN 82 Y/O W/FE ADMITED TO DR. BLACKWELL/FL[facility]O. WITH PNEUMONIA. ALLRGIES=MORPHINE,SILVER TOPICAL, ADHESIVE TAPE, CODEINE. SALINE LOCK PATENT RT ARM. PT DOES HAVE LEFT ABD. QUAD J-TUBE CLAMPED.
[2017-05-22 04:00] VITALS: BP 121/53
--- NOTE | 2017-05-22 04:01 | NUR ---
REST QUIETLY IN BED, CALL LIGHT IN REACH.
[2017-05-22 04:43] LABS: BASOPHILS 0.1 % (0-2); EOSINOPHILS 1.1 % (0-7); HEMATOCRIT 31.5 % (36.0-48.0); HEMOGLOBIN 9.3 g/dL (12-16); IMMATURE GRANULOCYTES 0.4 % (0-5); LYMPHOCYTES 11.9 % (15-50); MCH 21.7 pg (26.0-34.0); MCHC 29.5 g/dL (31.0-37.0); MCV 73.6 fL (80.0-100.0); MEAN PLATELET VOLUME 9.9 fL (7.4-10.4); MONOCYTES 9.2 % (2-11); NEUTROPHILS 77.3 % (40-80); PLATELET COUNT 378 10x3/uL (130-400); RBC 4.28 10x6/uL (4.00-5.40); RDW 16.4 % (11.5-14.5); WBC 13.7 10x3/uL (4.8-10.8)
[2017-05-22 04:57] LABS: ANION GAP 11.4 mmol/L (8-16); CARBON DIOXIDE 25.6 mmol/L (21.0-32.0)
--- NOTE | 2017-05-22 05:50 | NUR ---
HEARD NOISE FROM BATHROOM, AND WENT TO CHECK, PT FELL ON HER RIGHT SIDE. NURSE STAFFS TRANSFER PT TO BED, ASSESS PT, NO BLEEDING OR BRUISES SEEN. PT STATES:" SHE IS OK, JUST THE BACK AND RIGHT SIDE OF HEAD HURT. CALL PT'S DAUGHTER AND DOCTOR.
--- NOTE | 2017-05-22 06:40 | NUR ---
CALL DOCTOR AND PT'S DAUGHTER ABOUT PT'S FELL.
--- NOTE | 2017-05-22 07:20 | NUR ---
REPORT RECIEVED, ASSUMED CARE OF PT. RESTING, EYES SHUT, EASILY AROUSED. NO NEEDS VOICED AT THIS TIME. BED IN LOWEST POSITION, SIDE RAILS UP X 2, CALL LIGHT WITHIN REACH.
[2017-05-22 08:48] VITALS: BP 134/64
--- NOTE | 2017-05-22 10:58 | NUR ---
Patient Name: LIZ JOYCE Admission Status: ER Accout number: [id number] Admission Date: 05-21-2017 : 1935 Admission Diagnosis: Attending: MARIAMA BLACKWELL Current LOS: 1 Anticipated DC Date: 05-26-2017 Planned Disposition: Home Primary Insurance: MEDICARE A & B Discharge Planning Comments: CM MET WITH PATIENT AND DAUGHTER IN LAW (KIM) REGARDING D/C NEEDS AND PLANS. PATIENT STATED SHE LIVES ALONE AND HER FAMILY LIVES NEXT DOOR. PATIENT HAS A NEW RAMP TO ENTER HER HOME AND NO STAIRS INSIDE. PATIENT IS INDEPENDENT WITH HER CARE AND HAS A WALKER, WHEELCHAIR, BS COMMODE, ELEV. TOILET SEAT, SHOWER CHAIR, OXYGEN, PORTABLE O2, AND NEBULIZER. [employer] SUPPLIES THE OXYGEN. PATIENTS PCP IS DR. SAM AND PHARMACY IS [facility]. PATIENT IS CURRENT WITH [facility]. CM WILL CONTINUE TO FOLLOW PATIENT WITH D/C NEEDS AND PLANS. PCP DR. [facility]- [phone] KIM (DAUGHTER IN LAW) [phone] Interstate Planner: Mily Acevedo Is the patient Alert and Oriented? Yes 0 * How many steps to enter\exit or inside your home? RAMP 0 * PCP [facility] 0 * [facility] * Preadmission Environment Home Alone 0 * ADLs Independent 0 * Equipment Bedside Commode Elevated [place] Seat Nebulizer Oxygen Shower Chair Walker Wheelchair 0 * Other Equipment PORTABLE O2 ([employer] SUPPLIER) 0 * List name and contact numbers for known caregivers / representatives who currently or will assist patient after discharge: KIM (DAUGHTER IN LAW) [phone] 0 * Community resources currently utilized Home Health 0 * Please name any agencies selected above. [facility] 0 * Additional services required to return to the preadmission environment? Yes 0 * Can the patient safely return to the preadmission environment? Yes 0 * Has this patient been hospitalized within the prior 30 days at any hospital? No 0 Grand Total: 0
[2017-05-22 11:04] VITALS: Ht 175.3 cm; Wt 60.8 kg
[2017-05-22 12:33] VITALS: BP 136/68
[2017-05-22 15:55] VITALS: BP 138/56
[2017-05-22 20:00] VITALS: BP 150/63
[2017-05-23] VITALS (7 sets, daily range): BP systolic 132–161; BP diastolic 58–74
[2017-05-23 05:37] LABS: BASOPHILS 0 % (0-2); EOSINOPHILS 0 % (0-7); HEMATOCRIT 31.2 % (36.0-48.0); HEMOGLOBIN 9.3 g/dL (12-16); IMMATURE GRANULOCYTES 0.3 % (0-5); MCH 21.7 pg (26.0-34.0); MCHC 29.8 g/dL (31.0-37.0); MCV 72.7 fL (80.0-100.0); MEAN PLATELET VOLUME 10.9 fL (7.4-10.4); MONOCYTES 3.4 % (2-11); NEUTROPHILS 89.3 % (40-80); RBC 4.29 10x6/uL (4.00-5.40); RDW 16.6 % (11.5-14.5); WBC 13.8 10x3/uL (4.8-10.8)
[2017-05-23 05:45] LABS: PLATELET COUNT 488 10x3/uL (130-400)
[2017-05-23 06:01] LABS: ANION GAP 14.5 mmol/L (8-16); CALCIUM 9.2 mg/dL (8.5-10.1); CARBON DIOXIDE 23.8 mmol/L (21.0-32.0); CREATININE - SERUM 0.9 mg/dL (0.6-1.3); POTASSIUM - SERUM 4.3 mmol/L (3.5-5.1)
--- NOTE | 2017-05-23 14:42 | NUR ---
PT NOT AVAILABLE
--- NOTE | 2017-05-23 19:13 | NUR ---
NEEDS PORT ACCESSED, IF PORT DOES NOT WORK, USE CATH FLOW IF NEEDED PER DR. SAM
--- NOTE | 2017-05-23 20:10 | NUR ---
RIGHT PORT ACCESSED BY BERNARDO HERNANDEZ. 3/4 INCH. SCANT BLOOD RETURN WITH DIFFICULTY FLUSHING. CATHFLOW ADMINISTERED PER BERNARDO. IV IN LEFT FA SLIGHTLY SWOLLEN AND PAINFUL TO PT. DC'D WITH TIP INTACT.
--- NOTE | 2017-05-24 00:05 | NUR ---
RIGHT PORT DIFFICULT TO IFUSE WITH NO BLOOD RETURN. HUBBER NEEDLE DC'D WITH TIP IN TACT.
--- NOTE | 2017-05-24 00:05 | NUR ---
IV SITED TO RIGHT FA 22 GAUGE X1 STICK WITH GOOD BLOOD RETURN NOTED.
--- NOTE | 2017-05-24 02:20 | NUR ---
RN NOTE: PT LYING IN SEMI CONSTANTINO'S POSITION WITH EYES CLOSED. TUBE FEEDING INFUSING AT 90 ML / HR. WILL CONTINUE TO MONITOR FOR NEEDS.
[2017-05-24 04:00] VITALS: BP 145/64
[2017-05-24 07:47] VITALS: BP 134/77
--- NOTE | 2017-05-24 08:00 | NUR ---
PT ASSESSMENT COMPLETE AWAKE AND ALERT ORIENTED X 3 LUNGS WITH DIMNINSHED BASES BILATERALLY HAS PERCUSSION THERAPY IN PROGRESS FEEDING INFUSING VIA PUMP TO J TUBE. ALL ADLS PER STAFF ASSIST. PIV TO RIGHT FORARM PATENT WITH NO REDNESS NOTED.
--- NOTE | 2017-05-24 12:06 | NUR ---
NO DISTRESS NOTED FAMILY AT SIDE AT THIS TIME CALL LIGHT INREACH SIDE RAILS UP X 2
[2017-05-24 12:15] VITALS: BP 115/64
--- NOTE | 2017-05-24 14:07 | NUR ---
LYING IN BED,FAMILY AT SIDE.PT DENIES NEEDS AT PRESENT.CALL LIGHT IN REACH
--- NOTE | 2017-05-24 14:43 | NUR ---
PORT ACCESSED BY DR RENDON USING 20G 1 INCH NEEDLE,WASH WORKER USED.PORT FLUSHES ,BUT DOES NOT HAVE BLOOD RETURN. PT TOLERATED WELL.
[2017-05-24 15:35] VITALS: BP 152/68
--- NOTE | 2017-05-24 18:33 | NUR ---
remains without needs,without distress.cont plan of care
--- NOTE | 2017-05-24 19:00 | NUR ---
REPORT RECEIVED AND CARE OF PT ASSUMED. PT LYING IN HIGH CONSTANTINO'S POSITION WATCHING TV. IV IN RIGHT FA PATENT WITH NS INFUSING AT 25 ML / HR. O2 IN USE VIA NC AT 2L. TELEMETRY IN PLACE AND READING 90 SR AT THIS ASSESSMENT. WILL MONITOR BETT[place] FOR NEEDS.
[2017-05-24 20:00] VITALS: BP 124/60
--- NOTE | 2017-05-24 20:30 | NUR ---
STARTED HS INFUSION OF OSMOLITE 1.5 @ 90 ML / HR, FOR A TOTAL OF 4 CANS OVERNIGHT.
--- NOTE | 2017-05-24 20:42 | NUR ---
HS MEDICATIONS GIVEN. WILL CONTINUE TO MONITOR FOR NEEDS.
[2017-05-25] VITALS: BP 129/52
--- NOTE | 2017-05-25 01:12 | NUR ---
PT RESTING IN HIGH CONSTANTINO'S POSITION WITH EYES CLOSED AND EASY RESPIRATIONS. SIDE RAILS UP X2 FOR SAFETY.
[2017-05-25 04:00] VITALS: BP 122/52
[2017-05-25 06:25] LABS: BASOPHILS 0 % (0-2); EOSINOPHILS 0 % (0-7); HEMATOCRIT 30.7 % (36.0-48.0); IMMATURE GRANULOCYTES 0.3 % (0-5); LYMPHOCYTES 5.6 % (15-50); MCH 21.4 pg (26.0-34.0); MCHC 29.3 g/dL (31.0-37.0); MCV 73.1 fL (80.0-100.0); MEAN PLATELET VOLUME 10.6 fL (7.4-10.4); MONOCYTES 6.5 % (2-11); NEUTROPHILS 87.6 % (40-80); PLATELET COUNT 456 10x3/uL (130-400); RDW 16.5 % (11.5-14.5); WBC 13.8 10x3/uL (4.8-10.8)
[2017-05-25 06:51] LABS: CALC OSMOLALITY 285 mosm/kg (275-300); CALCIUM 8.9 mg/dL (8.5-10.1); CARBON DIOXIDE 24.3 mmol/L (21.0-32.0); CHLORIDE - SERUM 104 mmol/L (98-107); CREATININE - SERUM 0.7 mg/dL (0.6-1.3); GLUCOSE 158 mg/dL (74-106); POTASSIUM - SERUM 4.5 mmol/L (3.5-5.1); SODIUM 138 mmol/L (136-145); UREA NITROGEN 31 mg/dL (7-18); eGFR NON AFRICAN AMERICAN 85 mL/min (90-120)
--- NOTE | 2017-05-25 07:20 | NUR ---
REPORT RECEIVED FROM NITROGLYCERIN NEUTRALIZER NURSE. CALL LIGHT IN REACH.
[2017-05-25 08:49] VITALS: BP 148/69
--- NOTE | 2017-05-25 09:15 | NUR ---
ASSESSMENT COMPLETED. CALL LIGHT IN REACH. WILL CONTINUE WITH PLAN OF CARE.
--- NOTE | 2017-05-25 11:23 | NUR ---
AM MEDS ADMINISTERED. FAMILY IN ROOM. CALL LIGHT IN REACH.
[2017-05-25 11:44] VITALS: BP 164/74
--- NOTE | 2017-05-25 12:15 | NUR ---
FAMILY AT BEDSIDE. DENIES NEEDS AT THIS TIME. CALL LIGHT IN REACH.
--- NOTE | 2017-05-25 14:12 | NUR ---
PROAMATINE PO AND SOLUMEDROL SIVP. CALL LIGHT IN REACH.
--- NOTE | 2017-05-25 14:20 | NUR ---
SCDs APPLIED TO BLE PER MD ORDER
[2017-05-25 16:20] VITALS: BP 151/69
--- NOTE | 2017-05-25 16:28 | NUR ---
DENIES NEEDS AT THIS TIME. CALL LIGHT IN REACH.
--- NOTE | 2017-05-25 17:08 | NUR ---
PATIENT SITTING UP IN BED EATING AT THIS TIME. NO COMPLAINTS. CALL LIGHT WITHIN REACH.
--- NOTE | 2017-05-25 17:47 | HP ---
PATIENT: LIZ JOYCE MEDICAL RECORD: [id number] ACCOUNT: [id number] LOCATION:D.MS [id number] : 37 ADMISSION DATE: 05/21/17 HISTORY AND PHYSICAL EXAMINATION REASON FOR ADMISSION: Back pain, cough and fevers. HISTORY OF PRESENT ILLNESS: The patient is an 82-year-old female, followed by Dr. Jacques from pulmonary for hbwqj-ga-bzcugjk bronchiectasis and COPD. The patient stated that for 2 days, she had increasing low back pain simply by twisting, getting into bed. She had been more sedentary, developed cough yesterday with fever and the fever went to 101 yesterday afternoon. For that reason, she came to the Emergency Room. She has had some nausea without vomiting. Her back pain has been moderate to severe. She has had prior history of two L4-L5 back surgeries in the past. She denies hemoptysis or extreme shortness of breath. Her back has been hurting since she has not been able to use her chest percussion device to help bring up her phlegm. She denies any recent antibiotics. PAST MEDICAL HISTORY: Bronchiectasis, asthma, COPD, hypothyroidism, history of chronic orthostatic hypotension, history of tuberculosis. 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 PAST SURGICAL HISTORY: Cholecystectomy, appendectomy, lower diskectomy times 2, G-tube placement, cataract surgery bilaterally, thyroid tumor removed, benign. She has had hysterectomy, right oophorectomy, carpal tunnel release, cervical spine surgery, exploratory laparotomy. ALLERGIES: LEVAQUIN, PENICILLIN, ADHESIVE TAPE, MORPHINE AND SULFA. FAMILY HISTORY: Mother at 86 from renal failure, she had migraine. Sister at 54 and another sister at 63, heart disease and breast cancer. One brother with heart disease and hypertension. Father at 54 from tuberculosis. SOCIAL HISTORY: She is , retired and lives alone, but son lives next door and is very attentive to her needs. Never smoked, never used alcohol or drugs. HOME MEDICATIONS: Xopenex 0.63 updrafts q.i.d., midodrine 5 mg p.o. q.i.d., Robaxin 500 mg p.o. t.i.d. p.r.n. muscle spasms, Lopressor 25 mg one half tablet or 12.5 mg p.o. daily, Mirapex 0.125 mg p.o. at bedtime, aspirin 81 mg p.o. daily, Xanax 0.25 mg p.o. b.i.d. p.r.n. anxiety, tramadol 50 mg q.4 hours p.r.n. pain, Tylenol 500 mg q.6 hours p.r.n. fever, Advair HFA 230/21 two puffs b.i.d., Singulair 10 mg in the evening, Mucomyst 20% inhalated updraft b.i.d., Mucinex 1200 mg p.o. b.i.d., Afrin nasal spray p.r.n. congestion, Genasal nasal 2 sprays each nostril b.i.d., saline nasal spray 2 sprays each nostril p.r.n., Zofran 8 mg per PEG q.8 hours, Protonix 40 mg p.o. b.i.d., probiotic 1 cap p.o. daily, famotidine 20 mg p.o. at bedtime, Synthroid 125 mcg p.o. q.a.m., Myrbetriq 25 mg p.o. daily, vitamin D2 50,000 units capsule p.o. 2 times a week on Friday and Friday, oxiconazole cream 1% topical b.i.d. to rash. REVIEW OF SYSTEMS: HISTORY AND PHYSICAL [id number] LIZ JOYCE GENERAL: Fatigued and fever for 24 hours. HEENT: No recent visual change, sinus congestion, or sore throat. RESPIRATORY: Increasing cough with moderate production. She has been mildly short of breath. She has had upper back pain on deep inspiration. CARDIAC: Denies palpitations, but is lightheaded on standing. GASTROINTESTINAL: She has had some nausea without vomiting. No change in stools. GENITOURINARY: Mild incontinence, no dysuria. GYNECOLOGIC: No vaginal bleeding. MUSCULOSKELETAL: She has had a flare of her lumbago, no sciatica currently. ENDOCRINE: Denies polyuria, polydipsia, heat or cold intolerance. NEUROLOGIC: No recent headaches or motor or sensory deficits. INTEGUMENT: No rash or itching. PSYCHIATRIC: Denies depressed mood. PHYSICAL EXAMINATION: VITAL SIGNS: Temperature is 97.5 Fahrenheit, pulse 103 and regular, respirations are 18, blood pressure 110/48, O2 saturation 96%. HEENT: Normocephalic. Eyes are clear. Pupils reactive, lens implants noted in both eyes. Mucous membranes are dry orally. NECK: Supple. CHEST: She has crackles in the right base. She is mildly tachypneic. HEART: Tachycardic without murmur. ABDOMEN: Soft, nontender. EXTREMITIES: No CC&E. MUSCULOSKELETAL: She has pain in her mid to lower lumbar spine with forward flexion and side bending to the right. Negative SLR. NEUROLOGICAL: Oriented to person, place, and time. Cranial nerves grossly intact. Gait is somewhat unsteady with standby assist. No localizing neurologic signs appreciated. LABORATORY DATA: White count 17,000, H&H of 9.6 and 32.3, platelet count 401,000 and 84% neutrophils. Chemistry shows BUN and creatinine of 22 and 0.9, glucose of 126, nonfasting. Lactic acid 0.8, alkaline phosphatase 125. Albumin was low at 2.8. Portable chest x-ray shows persistent bilateral lower lobe alveolar and interstitial densities with a stable left pleural effusion. ASSESSMENT: 1. Feocb-hd-hjcvbts bronchiectasis. 2. Fever, possible pneumonia. 3. Chronic left pleural effusion. 4. Anemia of chronic disease. 5. Neurocardiogenic syncope, history of tuberculosis, bvswn-om-evojmgb lumbago, recent fall, chronic obstructive pulmonary disease/asthma. PLAN: The patient is admitted for pulmonary toilet, IV antibiotics. Blood cultures will be obtained. Pulmonary consult. Further workup pending clinical course. TRANSINT:[id number] Voice Confirmation ID: [id number] DOCUMENT ID: [id number] HISTORY AND PHYSICAL [id number] LIZ JOYCE TIMOTHY MD at 1747 CC: [id number] DICTATION DATE: 05/22/17 0713 WIRE DRAWING MACHINE OPERATOR: 05/22/17 1115 [facility] [place] [address]
--- NOTE | 2017-05-25 18:25 | NUR ---
IV ABX ADMINISTERED PER ORDER. PROAMATINE PO. ALL IV TUBING CHANGED PER HOSPITAL POLICY. SCDs TO BLE. CALL LIGHT IN REACH. WILL CONTINUE WITH PLAN OF CARE.
--- NOTE | 2017-05-25 19:00 | NUR ---
REPORT RECEIVED AND CARE OF PT ASSUMED. PT LYING IN HIGH CONSTANTINO'S POSITION WATCHING TV. IV IN RIGHT FA PATENT WITH NS INFUSING AT KVO. TELEMETRY IN PLACE AND READING 81 SR AT THIS ASSESSMENT. WILL MONITOR FOR NEEDS.
[2017-05-25 20:00] VITALS: BP 153/67
--- NOTE | 2017-05-25 20:15 | NUR ---
CHANGED DRESSING AROUND PEG TUBE. CLEANSED WELL WITH WOUND RED CROSS WORKER; APPLIED DESITIN AROUNG TUBE INSERTION SITE, AND PLACED NEW DRAIN SPONGE.
--- NOTE | 2017-05-25 20:20 | NUR ---
ASSISTED PT UP TO USE RESTROOM, USING 2 PERSON ASSIST...PT VERY UNSTEADY WHEN AMBULATING. POSITIONED BACK IN BED FOR COMFORT.
--- NOTE | 2017-05-25 20:25 | NUR ---
PT C/O CONSTIPATION...GAVE PRUNE JUICE FOR HS SNACK.
--- NOTE | 2017-05-25 20:40 | NUR ---
STARTED FEEDING WITH OSMOLITE 1.5 AT 90 ML / HR VIA FEEDING PUMP. PEG TUBE FLUSHED WELL PRIOR TO CONNECTING TO FEEDING.
--- NOTE | 2017-05-25 20:45 | NUR ---
HS MEDICATIONS GIVEN.
--- NOTE | 2017-05-25 22:05 | NUR ---
IV OCCLUDED. REMOVED WITH CATHETER TIP INTACT. RE-SITED IN RIGHT AC USING 20 GUAGE CATHETER IN ONE STICK. IV FLUIDS RE-CONNECTED.
[2017-05-26] VITALS: BP 148/62
--- NOTE | 2017-05-26 00:10 | NUR ---
PT ASSISTED UP TO USE BSC. POSITIONED BACK IN BED AND POSITIONED FOR COMFORT. SCD'S RE-CONNECTED.
[2017-05-26 04:56] LABS: BASOPHILS 0 % (0-2); EOSINOPHILS 0 % (0-7); HEMATOCRIT 31.8 % (36.0-48.0); HEMOGLOBIN 9.4 g/dL (12-16); IMMATURE GRANULOCYTES 0.3 % (0-5); LYMPHOCYTES 6.8 % (15-50); MCH 21.5 pg (26.0-34.0); MCHC 29.6 g/dL (31.0-37.0); MCV 72.8 fL (80.0-100.0); MEAN PLATELET VOLUME 10.4 fL (7.4-10.4); MONOCYTES 6.4 % (2-11); NEUTROPHILS 86.5 % (40-80); PLATELET COUNT 489 10x3/uL (130-400); RBC 4.37 10x6/uL (4.00-5.40); RDW 16.3 % (11.5-14.5)
[2017-05-26 05:00] VITALS: BP 142/62
--- NOTE | 2017-05-26 05:00 | NUR ---
WALKED PT TO RESTROOM WITH 2 PERSON ASSIST...STILL UNABLE TO HAVE BM.
[2017-05-26 05:05] LABS: ANION GAP 14.2 mmol/L (8-16); CALCIUM 8.9 mg/dL (8.5-10.1); CARBON DIOXIDE 25.2 mmol/L (21.0-32.0); CREATININE - SERUM 0.8 mg/dL (0.6-1.3); POTASSIUM - SERUM 4.4 mmol/L (3.5-5.1)
--- NOTE | 2017-05-26 05:38 | NUR ---
IV IN RIGHT AC LEAKING. REMOVED WITH CATHETER TIP INTACT. RE-SITED IN LEFT FOREARM. IV FLUIDS RE-STARTED AT KVO. MORNING DOSE OF SOLUMEDROL AND DOXY IVPB STARTED. WILL CONTINUE TO MONITOR FOR NEEDS.
--- NOTE | 2017-05-26 08:01 | NUR ---
LYING IN BED,WITHOUT DISTRESS.CALL LIGHT IN REACH
--- NOTE | 2017-05-26 08:02 | NUR ---
REC'D SITTING UP IN BED AWAKE AND ALERT. RESP EVEN AND UNLABORED WITH NO DISTRESS NOTED. CAN VOICE NEEDS AND WANTS. NO C/O NOTED OR VOICED. ASSISTANCE GIVEN WITH ALL TRANSFERS X 2. ASSESSMENT COMPLETED. C/L IN REACH AT BEDSIDE.
[2017-05-26 09:10] VITALS: BP 196/90
[2017-05-26 13:10] VITALS: BP 203/132
--- NOTE | 2017-05-26 13:41 | NUR ---
NUTRITION F/U CHART REVIEWED. PT TOLERATING ~25% OF RECENT MEALS. OSMOLITE 1.5 JOSE X 4 CANS NOCTURNAL J TUBE FEEDS. RD FOLLOWING
[2017-05-26 16:29] VITALS: BP 182/78
--- NOTE | 2017-05-26 20:00 | NUR ---
ASSESSMENT PER FLOWSHEET. IV PATENT LEFT FOREARM OF NS AT O. SITE CLEAR. PEG TUBE PATENT LEFT ABD. QUAD CLAMPED. SCD'S ON SR UP X2 CALL LIGHT WITHINREACH. BED ALARM ON. O2 ON 2.5/M PER NC NO DISRESS. TELM. SHOWS SR 92.
--- NOTE | 2017-05-26 21:15 | NUR ---
UP WITH HELP TO BSC VOIDS WELL. MEDS GIVEN PER MAR.
--- NOTE | 2017-05-26 21:45 | NUR ---
BEDSIDE RT TX GIVEN. OSMOLYTE TUBE FEEDING STARTED PER PEG TUBE AT 90CC'S.HR.
[2017-05-26 23:00] VITALS: BP 192/79
--- NOTE | 2017-05-27 | NUR ---
EYES CLOSED RESPIRATIONS WITH EASE AND UNLABORED
--- NOTE | 2017-05-27 03:02 | NUR ---
RESTING QUIETLY DENIES NEEDS.
[2017-05-27 05:00] VITALS: BP 147/68
[2017-05-27 05:34] LABS: BASOPHILS 0.1 % (0-2); EOSINOPHILS 0 % (0-7); HEMOGLOBIN 10.1 g/dL (12-16); IMMATURE GRANULOCYTES 0.5 % (0-5); LYMPHOCYTES 6.4 % (15-50); MCH 21.8 pg (26.0-34.0); MCHC 29.7 g/dL (31.0-37.0); MCV 73.4 fL (80.0-100.0); MEAN PLATELET VOLUME 11.1 fL (7.4-10.4); MONOCYTES 5.4 % (2-11); NEUTROPHILS 87.6 % (40-80); RBC 4.63 10x6/uL (4.00-5.40); RDW 16.7 % (11.5-14.5)
[2017-05-27 05:45] LABS: ANION GAP 13.5 mmol/L (8-16); CALCIUM 8.9 mg/dL (8.5-10.1); CARBON DIOXIDE 27.4 mmol/L (21.0-32.0); POTASSIUM - SERUM 4.9 mmol/L (3.5-5.1)
[2017-05-27 05:46] LABS: PLATELET COUNT 616 10x3/uL (130-400)
--- NOTE | 2017-05-27 06:00 | NUR ---
UP TO BSC VOIDED ASSISTED BACK TO BED. SR UP X2 CALL LIGHT WITHIN REACH BED ALARM ACTIVATED.
[2017-05-27 08:05] VITALS: BP 185/75
--- NOTE | 2017-05-27 08:15 | NUR ---
PT RESTING IN BED WITH EYES OPEN DAUGHTER AT BEDSIDE EATING BREAKFAST TOLERATING WELL WILL MONITER
[2017-05-27 11:54] VITALS: BP 183/104
[2017-05-27 15:58] VITALS: BP 192/103
--- NOTE | 2017-05-27 16:32 | NUR ---
PT WITHOUT DISTRESS.CALL LIGHT IN REACH
--- NOTE | 2017-05-27 18:21 | NUR ---
PT UP IN BEDSIDE CHAIR WITH CALL LIGHT IN REACH WILL MONITER
[2017-05-27 20:00] VITALS: BP 162/76
[2017-05-28] VITALS: BP 128/56
[2017-05-28 04:00] VITALS: BP 170/68
[2017-05-28 05:55] LABS: BASOPHILS 0 % (0-2); EOSINOPHILS 0 % (0-7); HEMATOCRIT 32.1 % (36.0-48.0); HEMOGLOBIN 9.3 g/dL (12-16); IMMATURE GRANULOCYTES 0.6 % (0-5); LYMPHOCYTES 4.3 % (15-50); MCH 21.3 pg (26.0-34.0); MCV 73.6 fL (80.0-100.0); MEAN PLATELET VOLUME 10.9 fL (7.4-10.4); MONOCYTES 4.4 % (2-11); NEUTROPHILS 90.7 % (40-80); PLATELET COUNT 522 10x3/uL (130-400); RBC 4.36 10x6/uL (4.00-5.40); RDW 16.5 % (11.5-14.5); WBC 16.8 10x3/uL (4.8-10.8)
[2017-05-28 06:14] LABS: ANION GAP 13.5 mmol/L (8-16); CALCIUM 8.5 mg/dL (8.5-10.1); CREATININE - SERUM 0.9 mg/dL (0.6-1.3); POTASSIUM - SERUM 4.5 mmol/L (3.5-5.1)
--- NOTE | 2017-05-28 07:29 | NUR ---
REPORT RECEIVED FROM PRINCIPAL ASSOCIATE NURSE. CALL LIGHT IN REACH.
--- NOTE | 2017-05-28 08:19 | NUR ---
ASSESSMENT COMPLETED. REFUSES SCDs. RIGHT IP WAS ALREADY ASCESSED. WAS ABLE TO FLUSH AND WAS ABLE TO DRAW BLOOD. INFORMED DR. COLUNGA AND DR. BLACKWELL OF THIS. ALSO INFORMED PATIENT. CALL LIGHT IN REACH. WILL CONTINUE WITH PLAN OF CARE.
[2017-05-28 09:33] VITALS: BP 151/77
--- NOTE | 2017-05-28 10:46 | NUR ---
AM MEDS ADMINISTERED. IV TO LEFT FOREARM TENDER SO DC'D WITH TIP INTACT. IV TUBING CHANGED AND IV FLUIDS NOW TO RIGHT INFUSAPORT. CALL LIGHT IN REACH. DAUGHTER IN ROOM.
--- NOTE | 2017-05-28 12:36 | NUR ---
IN CHAIR. LUNCH TRAY TAKEN TO PATIENT.
[2017-05-28 13:29] VITALS: BP 150/73
--- NOTE | 2017-05-28 13:30 | NUR ---
AFTERNOON MEDS ADMINISTERED. IP FLUSHED WITH 10 CC NS.
--- NOTE | 2017-05-28 14:00 | NUR ---
NO NEEDS VOICED AT THIS TIME. MARY GAYTAN, TO WATCH PATIENT AT THIS TIME FOR A COUPLE OF HOURS.
[2017-05-28 16:30] VITALS: BP 156/74
--- NOTE | 2017-05-28 16:41 | NUR ---
AFTERNOON MEDS ADMINISTERED PER ORDER. PACK OF DEPENDS GIVEN TO PATIENT.
--- NOTE | 2017-05-28 16:50 | NUR ---
PASSWORD OBTAINED AND PLACED IN COMPUTER.
--- NOTE | 2017-05-28 18:20 | NUR ---
NO CHANGES IN INITIAL ASSESSMENT. CALL LIGHT IN REACH. STILL REFUSES SCDs. BED ALARM ON. CALL LIGHT IN REACH. WILL CONTINUE WITH PLAN OF CARE.
--- NOTE | 2017-05-28 19:05 | NUR ---
STATES SHE HAD A LARGE BOWEL MOVEMENT AFTER CRUZLIN, GAVE HER WARM PRUNE JUICE AND SPRITE. O2 @ 2.5L PER NC. RIGHT INFUSAPORT PATENT WITH NS INFUSING @ 5 CC/HR VIA PUMP. STATES SHE REFUSES TO WEAR SCDs AT THIS TIME. BED ALARM ON. CALL LIGHT IN REACH. WILL CONTINUE WITH PLAN OF CARE.
[2017-05-28 20:00] VITALS: BP 138/69
--- NOTE | 2017-05-28 20:00 | NUR ---
ASSESSMENT PER FLOWSHEET. IV PATENT RT INFUSAPORT OF NS AT 5CC'S/HR BED ALARM ON. SR UP X2 CALL LIGHT WITHIN REACH. TELM. SHOWS SR/ST 98-101.O2 ON 2.5 L/M PER NC. J TUBE PATENT AND CLAMPED.
--- NOTE | 2017-05-28 22:00 | NUR ---
MEDS GIVEN PER AUG. OSMOLYTE 1.5CAL X4 CARTONS ADDED TO TUBE FEEDING BAG AND RUNNING AT 90CC'S/HR.
[2017-05-29] VITALS: BP 139/54
--- NOTE | 2017-05-29 | NUR ---
EYES CLOSED RESPIRATIONS WITH EASE AND UNLABORED.
--- NOTE | 2017-05-29 02:00 | NUR ---
UP TO BSC HAD LARGE SOFT FORMED STOOL. CLEANED AND DRIED ASSISTED BACK TO BED. SR UP X2 CALL LIGHT WITHIN REACH.
--- NOTE | 2017-05-29 04:06 | NUR ---
RESTING QUIETLY DENIES NEEDS.
--- NOTE | 2017-05-29 06:15 | NUR ---
MEDS GIVEN PER MAR NO CHANGES IN ASSESSMENT
[2017-05-29 06:36] LABS: BASOPHILS 0 % (0-2); EOSINOPHILS 0 % (0-7); HEMATOCRIT 32.9 % (36.0-48.0); HEMOGLOBIN 9.5 g/dL (12-16); IMMATURE GRANULOCYTES 0.4 % (0-5); LYMPHOCYTES 4.5 % (15-50); MCH 21.3 pg (26.0-34.0); MCHC 28.9 g/dL (31.0-37.0); MCV 73.6 fL (80.0-100.0); MEAN PLATELET VOLUME 10.9 fL (7.4-10.4); MONOCYTES 4.8 % (2-11); NEUTROPHILS 90.3 % (40-80); PLATELET COUNT 514 10x3/uL (130-400); RBC 4.47 10x6/uL (4.00-5.40); RDW 16.9 % (11.5-14.5); WBC 16.6 10x3/uL (4.8-10.8)
[2017-05-29 06:40] LABS: ANION GAP 12.2 mmol/L (8-16); CALCIUM 8.5 mg/dL (8.5-10.1); CARBON DIOXIDE 26.2 mmol/L (21.0-32.0); CREATININE - SERUM 0.8 mg/dL (0.6-1.3); POTASSIUM - SERUM 4.4 mmol/L (3.5-5.1)
[2017-05-29 06:52] VITALS: BP 134/63
--- NOTE | 2017-05-29 07:10 | NUR ---
REPORT RECEIVED FROM SHIP CAPTAIN NURSE. CALL LIGHT IN REACH.
--- NOTE | 2017-05-29 07:10 | NUR ---
REPORT RECEIVED FROM SCRAP DROP CRANE OPERATOR NURSE. CALL LIGHT IN REACH.
--- NOTE | 2017-05-29 08:47 | NUR ---
ASSESSMENT COMPLETED. REFUSES SCDs. CALL LIGHT IN REACH. WILL CONTINUE WITH PLAN OF CARE.
[2017-05-29 09:38] VITALS: BP 144/72
--- NOTE | 2017-05-29 10:30 | NUR ---
SITTING IN CHAIR AT THIS TIME. EXPLAINED TO PATIENT THAT AM MEDS WILL BE A LITTLE LATE. STATES IT IS OK.
--- NOTE | 2017-05-29 11:43 | NUR ---
AM MEDS ADMINISTERED. CALL LIGHT IN REACH.
--- NOTE | 2017-05-29 12:40 | NUR ---
WAITING ON DR. VARGAS TO SEE PATIENT IN ORDER TO SEE IF IT OK WITH HIM IF SHE WENT HOME.
[2017-05-29 13:12] VITALS: BP 143/74
--- NOTE | 2017-05-29 14:05 | NUR ---
AFTERNOON MEDS ADMINISTERED. CALL LIGHT IN REACH.
--- NOTE | 2017-05-29 15:54 | NUR ---
DR. VARGAS HERE TO SEE PATIENT.
--- NOTE | 2017-05-29 16:00 | NUR ---
CALLED DR. BLACKWELL'S OFFICE TO INFORM HIM THAT DR. VARGAS SAID IT WAS OK FOR PATIENT TO GO HOME. HIS NURSE STATED THAT SHE WOULD LET HIM KNOW AFTER PATIENTS IN THE CLINIC HAVE BEEN SEEN. I ASKED HER IF SHE COULD JUST ASK HIM TO CALL ME HERE AT THE HOSPITAL PLEASE. SHE STATED THAT SHE WOULD.
[2017-05-29 17:01] VITALS: BP 160/74
--- NOTE | 2017-05-29 17:21 | NUR ---
NO ORAL ABX NEEDED PER DR. VARGAS.
--- NOTE | 2017-05-29 18:40 | NUR ---
EXPLAINED TO PATIENT AND SON HOW TO FLUSH IP EVERY 8 HOURS. SEVERAL FLUSHES AND SWAB CAPS SENT HOME WITH PATIENT.
--- NOTE | 2017-05-29 19:36 | NUR ---
DC'D TO VEHICLE VIA WC WITH SON.
--- NOTE | 2017-06-05 14:06 | CN ---
PATIENT NAME:LIZ SONG MEDICAL RECORD: [id number] : 39 LOCATION:D.MS [id number] ADMIT DATE: 05/21/17 ACCOUNT: [id number] CONSULTING PHYSICIAN: ARA MEJIA MD REFERRING PHYSICIAN: FREDERICK ALTAMIRANO MD DATE OF CONSULTATION: 05/22/2017 CONSULT REQUESTING PHYSICIAN: Frederick Altamirano MD REASON FOR CONSULTATION: Objmm-mh-cvypgeg bronchiectasis exacerbation, possible pneumonia. HISTORY OF PRESENT ILLNESS: Ms. Song is an 82-year-old female who has a history of bronchiectasis, asthma, COPD, who has recurrent flareup with pseudomonas colonization. According to the patient, she is sick since . She was running some low-grade fever at 100. She was also coughing, productive, yellow-green colored sputum production. Also, she developed worsening backache and the patient was brought into the ER. Now, she is feeling a little bit better. There is no hemoptysis. Denies any chest pain. REVIEW OF SYSTEMS: Mainly in the history of present illness. PAST MEDICAL HISTORY: 1. Asthma-COPD overlap syndrome. 2. Bronchiectasis. 3. History of pseudomonas pneumonia. 4. Chronic sinusitis. 5. History of near-syncopal episode. 6. Chronic hypoxic respiratory failure. 7. Dysphagia status post PEG tube placement. 8. Gastroesophageal reflux disease. 9. History of MTB. 10. History of pulmonary nodules. 11. History of CVA and cardiac arrhythmia. 12. Hypothyroidism. 13. Hypertension. 14. Debility, early dementia. PAST SURGICAL HISTORY: 1. Cholecystectomy. 2. Cataract surgery. 3. Appendectomy. 4. Status post PEG tube placement. 5. Hysterectomy 6. Back surgery times 3. 7. Tumor removed from the neck. 8. Excision of cyst. ALLERGIES: SHE IS ALLERGIC TO SULFA, PENICILLIN, ADHESIVE, CODEINE, MORPHINE, AND DILTIAZEM. MEDICATIONS: On [employer], was reviewed. PERSONAL AND SOCIAL HISTORY: The patient is a nonsmoker, nondrinker. CONSULT REPORT [id number] LIZ SONG FAMILY HISTORY: Significant for lung disease and cancer. PHYSICAL EXAMINATION: GENERAL: The patient is now lying comfortably. She is not in acute distress. VITAL SIGNS: The blood pressure is 138/56, pulse is 110, respirations 24, temperature 98.4, and SPO2 is 95% on 2 liter nasal cannula. HEENT: Conjunctivae pink, sclerae nonicteric. NECK: Supple, no JVD. CHEST: The chest excursion is minimal, both sides have bilateral crackles. No wheezing. HEART: Rhythm regular, normal sound, no murmur. ABDOMEN: Soft. Bowel sounds present. No hepatosplenomegaly. RECTAL: Deferred. EXTREMITIES: No cyanosis, no clubbing, no pedal edema. SKIN: Warm, normal turgor. CENTRAL NERVOUS SYSTEM: The patient is awake and alert. There are no obvious cranial nerve abnormality. The gait was not tested. IMAGING: Chest radiograph, there is increased interstitial marking bilaterally. There is possible left pleural effusion, possible pleural thickening. LABORATORY DATA: CBC: WBC is 17.1, hemoglobin 9.6, hematocrit 32.3, platelet count is 401. IMPRESSION: 1. Savqw-om-iuektmy bronchiectasis exacerbation. 2. Pneumonia, bilateral, most likely community-acquired pneumonia. 3. Leukocytosis secondary to pneumonia. 4. Jriin-jv-jjfgilr hypoxic respiratory failure. 5. Acute exacerbation of asthma, COPD. 6. History of multiple pulmonary nodules. 7. History of pulmonary MTB. RECOMMENDATION: 1. Continue cefepime. I will add doxycycline. 2. Follow up labs and chest radiograph. 3. Methylprednisolone IV, albuterol/ipratropium nebulizer. 4. Brovana and budesonide nebulizer. 5. Mucolytics. 6. The patient can use her own vibration vest. Dr. Altamirano, thank you for involving me in the care of Ms. Song. TRANSINT:[id number] Voice Confirmation ID: [id number] DOCUMENT ID: [id number] ARA MEJIA MD at 1406 CC: KEEGAN SAM MD [id number] DICTATION DATE: 05/22/17 162 WEB MARKETING MANAGER: 05/22/17 184 DIS IN 05/29/17 [place] [id number] [place] [address]
--- NOTE | 2017-07-22 13:29 | DS ---
PATIENT:LIZ JOYCE :39 MEDICAL RECORD: [id number] DISCHARGE SUMMARY ADMISSION DATE: 05/21/17 DISCHARGE DATE: 05/29/17 DISCHARGE DIAGNOSES: Mrhlu-ol-ejszmvn bronchiectasis, fever with pneumonia, chronic left pleural effusion, anemia of chronic disease, neurocardiogenic syncope, chronic obstructive pulmonary disease with asthmatic component, krvym-od-bjeafbi hypoxic respiratory failure, community-acquired pneumonia. CONSULTANTS: Dr. Keyes. HOSPITAL COURSE: An 82-year-old female, a patient of the pulmonary clinic, longstanding, for bronchiectasis, COPD and asthma, admitted with increasing fever, cough, congestion, and back pain. She was admitted and placed on broad-spectrum antibiotics and was quite slow to improve. Her sputum grew mucoid Pseudomonas aeruginosa. She was improved. After 7 days of Maxipime and BEST therapy and pulmonary toilet, she was discharged on the above-mentioned date, to have follow-up sensitivities reviewed on her sputum, continue her mucolytics, Mucomyst, BEST, pulmonary toilet b.i.d. She was discharged on 05/29/2017. DISCHARGE MEDICATIONS: Zofran 8 mg q. 4 hours p.r.n. nausea or vomiting, Protonix 40 mg p.o. b.i.d., Mirapex 0.125 mg at h.s., aspirin 81 mg daily, vitamin D 50,000 unit capsule 2 times on Friday and Friday, Advair HFA 2 puffs b.i.d., Synthroid 0.125 q.a.m. a.c., Singular 10 mg at h.s., probiotic 1 daily, Pepcid-AC 20 mg at h.s., Xanax 0.25 mg b.i.d. p.r.n. anxiety, Lopressor 25 mg tabs one-half tab daily, Mucomyst updraft solution b.i.d., Xopenex updraft 0.63 b.i.d., Mucinex 600 mg 2 tabs or 1200 mg p.o. b.i.d., Genasal nasal 2 nasal sprays each nostril b.i.d., midodrine 5 mg p.o. q.i.d., Robaxin 500 mg p.o. t.i.d. p.r.n. muscle spasm, Ultram 50 mg q.6 hours for pain p.r.n., Myrbetriq 25 mg p.o. at bedtime, oxiconazole cream apply to rash b.i.d., O2 2 liters. ACTIVITY: Progress as tolerated. DIET: Regular. FOLLOWUP: Dr. Jacques in 1 week and Magaly Wu APN in 2 weeks. TRANSINT:[id number] Voice Confirmation ID: [id number] DOCUMENT ID: [id number] MARIAMA BLACKWELL MD at 1329 CC: [id number] DICTATION DATE: 07/18/17 1345 DENTAL ASSISTANT: 07/18/17 2145 DIS IN 05/29/17 [place] [id number] [place] [address]
== END 2017-05-29 19:36 | disposition home or self-care (01) | DRG 177 ==
LOC: D.ER 18:22 → D.MS 20:52
PROVIDERS: Emergency Medicine; Family Medicine; Specialist; ADMIT Family Medicine
PROC: 0D2DXUZ Change Feeding Device in Lower Intestinal Tract, External Approach (ICD-10-PCS; principal; 2017-05-23 14:00)
DX: J15.1 Pneumonia due to Pseudomonas (principal); J96.21 Acute and chronic respiratory failure with hypoxia; J45.901 Unspecified asthma with (acute) exacerbation; J90 Pleural effusion, not elsewhere classified; J47.1 Bronchiectasis with (acute) exacerbation; K94.13 Enterostomy malfunction; E03.9 Hypothyroidism, unspecified; D64.9 Anemia, unspecified; Y83.8 Other surgical procedures as the cause of abnormal reaction of the patient, or of later complication, without mention of misadventure at the time of the procedure; Y82.8 Other medical devices associated with adverse incidents; R91.8 Other nonspecific abnormal finding of lung field; I48.91 Unspecified atrial fibrillation; I10 Essential (primary) hypertension

== ENCOUNTER → 2017-07-29 07:42 | Outpatient (CLI) | payer MEDICARE ==
[2017-05-22 11:04] VITALS: BMI 19.8
--- NOTE | ~2017-07-29 | HEMODYNAMI ---
PATIENT:LIZ JOYCE MEDICAL RECORD: [id number] : 39 LOCATION:[facility] ADMISSION DATE: 07/29/17 Generatedon:07/29/20179:03 Patient name: LIZ JOYCE Patient #: [id number] SSN: DO B: 1935 Date of study: 07/29/2017 Page: Of Hemodynamic Procedure Report Patient Data Patient Demographics Procedure consent was obtained First Name: LIZ Gender: Female Last Name: MARIA DEL CARMEN : 1935 Middle Initial: E Age: 82 year(s) Patient #: [id number] Race: Unknown Additional ID: [id number] Contact details [address]: [address] [place] [address] State: [place] [facility] [place]: [address] Admission Admission Data Admission Date: 07/29/2017 Admission Time: 7:42 Procedure Procedure Types Cath Procedure Peripheral Cath Diagnostic Procedure Miscellaneous Procedure Description Procedure Date Procedure Date: 07/29/2017 Procedure Start Time: 8:43 Procedure Staff Name Function Akash Carr MD Performing Physician Bhaskar Hoff RT Monitor Fidencio Lovell RT Scrub Yanni Sawyer RN Nurse Rajesh Willingham Nurse Procedure Data Cath Procedure Fluoroscopy Diagnostic fluoroscopy Total fluoroscopy Time: 3.1 time: 3.1 min min Diagnostic fluoroscopy Total fluoroscopy dose: 16 dose: 16 mGy mGy Contrast Material Contrast Material Type Amount (ml) Isovue 300 25 Procedure Medications Medication Administration Route Dosage Heparin Flush Bag added to field 1 bags (1000units/500ml NS) Lidocaine 1% added to field Hemodynamics Rest Pre Cath Intra NCS Post Cath Medications Time Medication Route Dose Delivered Reason Notes Effectiveness by 8:43:52 Heparin Flush added 1 Bag to bags (1000units/500ml field NS) 8:44:27 Lidocaine 1% added to field Procedure Log Time Note 8:21:34 Bhaskar Hoff RT (R) (CV) sent for patient. Start room use. 8:21:44 Time tracking: Regular hours 8:21:49 Plan of Care:Hemodynamics will remain stable., Cardiac rhythm will remain stable., Comfort level will be maintained., Respiratory function will remain adequate., Patient/ family verbilizes understanding of procedure., Procedure tolerated without complication., Recovers from procedure without complications.. 8:21:55 Patient received from Outpatients to IR Alert and oriented. Tansferred to table in Supine position. 8:21:56 Correct patient and procedure confirmed by team. 8:21:59 Signed procedure consent form obtained from patient. 8:22:04 Full Disclosure recording started 8:22:09 8:22:10 Pre-procedure instructions explained to patient. 8:22:11 Pre-op teaching completed and patient verbalized understanding. 8:22:13 Family in waiting room. 8:22:16 Patient NPO since Midnight. 8:22:39 Use device set IR Diagnostic 8:22:40 Sterile Angiographic Pack opened to sterile field. 8:22:40 Bag Decanter ([id number]) opened to sterile field. 8:36:20 Right abdomen area was prepped with betadine and draped in sterile fashion 8:42:44 --------ALL STOP TIME OUT------ 8:42:45 Final Timeout: patient, procedure, and site verified with staff and physician. All members of the team are in agreement. 8:42:58 Left abdomen site verified by team. 8:43:12 Sedation plan: Local Anesthetic Medication:Lidocaine 8:43:16 Procedure started. 8:43:52 Heparin Flush Bag (1000units/500ml NS) 1 bags added to field was administered by ; ; 8:44:27 Lidocaine 1% added to field was administered by ; ; 8:53:31 JEJUNAL 22Fr 45cm Tube ([id number]) opened to sterile field. 9:00:44 ROADRUNNER .035 145 glide wire ([id number]) opened to sterile field. 9:01:11 Procedure ended.(Physican Out) 9:01:55 Fluoroscopy time 03.10 minutes. 9:02:07 Fluoroscopy dose: 16 mGy 9:02:07 Flurop Dose total: 16 9:02:37 Contrast amount:Isovue 300 25ml. 9:02:51 Post Abdominal area:stable 9:02:55 Insertion/operative site no bleeding no hematoma. 9:03:01 Report given to Other. 9:03:21 Patient transfered to Other with Wheelchair. Device Usage Item Name Manufacture Quantity Catalog Hospital Part Current Minimal Lot# / Number Charge Number Stock Stock Serial# Code Sterile Cardinal 1 [id number] 5 Angiographic Health Pack Bag Decanter Microtek 1 [id number] [id number] 5 () [employer] JEJUNAL 22Fr [facility] [place] 1 [id number] 5 45cm Refinery29 ([id number]) [facility] 1 [id number] [id number] 5 [id number] .035 145 glide wire ([id number]) Signature Audit [place] Time Signature Unsigned Intra-Procedure 07/29/2017 Bhaskar 9:03:36 AM Luis Eduardo RT (R) (CV) Signatures Monitor : Bhaskar Signature : Luis Eduardo RT Date : Time : [place] [id number]
== END | disposition home or self-care (01) ==
LOC: D.OPS 07:42 → D.RAD 09:00 → D.OPS 09:00
DX: K31.84 Gastroparesis (principal); Z01.812 Encounter for preprocedural laboratory examination

== ENCOUNTER → 2017-09-30 07:31 | Outpatient (CLI) | payer MEDICARE ==
[2017-05-22 11:04] VITALS: BMI 19.8
== END | disposition home or self-care (01) ==
LOC: D.RT 08-07 13:00 → D.RAD 08-07 14:00 → D.RT 08-08 10:00 → D.RAD 08-08 10:45 → D.RT 07:31
DX: J44.9 Chronic obstructive pulmonary disease, unspecified (principal)

== ENCOUNTER → 2017-11-04 09:08 | Outpatient (CLI) | payer MEDICARE ==
[2017-05-22 11:04] VITALS: BMI 19.8
--- NOTE | ~2017-11-04 | HEMODYNAMI ---
PATIENT:LIZ JOYCE MEDICAL RECORD: [id number] : 39 LOCATION:[facility] ADMISSION DATE: 11/04/17 Generatedon:11/04/201710:12 Patient name: LIZ JOYCE Patient #: [id number] SSN: DO B: 1935 Date of study: 11/04/2017 Page: Of Hemodynamic Procedure Report Patient Data Patient Demographics Procedure consent was obtained First Name: LIZ Gender: Female Last Name: MARIA DEL CARMEN : 1935 [facility] Initial: E Age: 82 year(s) Patient #: [id number] Race: Unknown Additional ID: [id number] Contact details Address: [address] [place] [address] State: [place] City: [facility] Zip code: [address] Admission Admission Data Admission Date: 11/04/2017 Admission Time: 9:08 Height (in.): 64 BSA: 1.63 (m2) Height (cm.): 162.56 BMI: 22.31 (kg/m2) Weight (lbs.): 130 Weight (kg.): 58.97 Procedure Procedure Types Cath Procedure Peripheral Cath Diagnostic Procedure Cath Peripheral Gastric G J Tube Replacement Procedure Description Procedure Date Procedure Date: 11/04/2017 Procedure Start Time: 10:06 Procedure Staff Name Function Charlie Rousseau MD Performing Physician Niyah Cote RT Collar Setter Niyah Cote RT Monitor Yanni Sawyer RN Nurse Latrice Brantley RT Scrub Procedure Data Cath Procedure Fluoroscopy Diagnostic fluoroscopy Total fluoroscopy Time: 0.5 time: 0.5 min min Diagnostic fluoroscopy Total fluoroscopy dose: 6 dose: 6 mGy mGy Contrast Material Contrast Material Type Amount (ml) Isovue 300 15 Hemodynamics Rest BSA: 1.63 (m2) O2 Consumption: Estimated: 221.68 (ml/min) O2 Consumption indexed : Estimated:136 (ml/min/m) Pre Cath Intra NCS Post Cath Procedure Log Time Note 9:45:11 Time tracking: Regular hours (M-F 7:00 - 5:00) 9:46:04 Patient Weight : 130 lbs 9:46:12 Patient Height : 64 inches 9:47:37 Plan of Care:Hemodynamics will remain stable., Cardiac rhythm will remain stable., Comfort level will be maintained., Respiratory function will remain adequate., Patient/ family verbilizes understanding of procedure., Procedure tolerated without complication., Recovers from procedure without complications.. 9:47:39 Correct patient and procedure confirmed by team. 9:47:40 Signed procedure consent form obtained from patient. 9:47:46 Pre-procedure instructions explained to patient. 9:47:47 Pre-op teaching completed and patient verbalized understanding. 9:47:48 Family in waiting room. 9:47:52 Patient NPO since Midnight. 9:48:20 - 10:02:38 Use device set IR Diagnostic 10:02:40 Sterile Angiographic Pack opened to sterile field. 10:02:42 Bag Decanter () opened to sterile field. 10:03:17 Physician arrived 10:03:24 --------ALL STOP TIME OUT------ 10:03:25 Final Timeout: patient, procedure, and site verified with staff and physician. All members of the team are in agreement. 10:05:06 GASTRO-ENTERIC 20Fr Tube ([id number]) opened to sterile field. 10:05:06 ROADRUNNER .035 145 glide wire ([id number]) opened to sterile field. 10:05:54 Procedure started. 10:06:14 Local anesthetic to Abdominal area with Lidocaine 1% by Charlie Rousseau MD.INITIAL ACCESS ONLY 10:06:55 Full Disclosure recording started 10:11:16 20fr g j tube placed 10:11:22 Procedure ended.(Physican Out) 10:11:36 Fluoroscopy time 00.50 minutes. 10:11:41 Fluoroscopy dose: 6 mGy 10:11:41 Flurop Dose total: 6 10:11:47 Contrast amount:Isovue 300 15ml. 10:11:51 Procedure and supply charges have been captured, reviewed, submitted an d are correct. Device Usage Item Name Manufacture Quantity Catalog Hospital Part Current Minim al Lot# / Number Charge Number Stock Stock Serial# Code Sterile Russell 1 [id number] 559692 5 Angiographic Health Pack Bag Decanter Microtek 1 [id number] 79093 546956 5 () [employer] Inc. GASTRO-ENTERIC [facility] 1 0110-18 469946 907129 550226 5 18Fr Tube Work4 (923032) [facility] 1 [id number] 303292 567372 678148 5 [id number] .035 145 glide wire (N14447) Signature Audit [place] Stage Time Signature Unsigned Intra-Procedure 11/04/2017 Niyah Cote 10:12:54 AM RT(R) Signatures Monitor : Niyah Cote RT Signature : Date : Time : [address] [address]
[~2017-11-04 09:08] MED LIST changes: +CIPRO500 MG PO; +DESITIN DIAPER113 GM TOPICAL; +GUAIFENESI100 MG/5 M PO; +MIRALAX17 GM PO
== END | disposition home or self-care (01) ==
LOC: D.SP 10-30 11:00 → D.RAD 10-30 11:00 → D.SP 10-30 13:00
DX: K31.84 Gastroparesis (principal); K94.13 Enterostomy malfunction; Z01.812 Encounter for preprocedural laboratory examination

== ENCOUNTER 2017-12-08 08:44 | Outpatient (CLI) | payer MEDICARE ==
[~2017-12-08] VITALS: Ht 175.3 cm; Wt 60.0 kg
[~2017-12-08 08:44] MED LIST changes: -CIPRO500 MG PO; -DESITIN DIAPER113 GM TOPICAL; -GUAIFENESI100 MG/5 M PO; -MIRALAX17 GM PO
[2017-12-08 10:03] VITALS: BP 145/63; Ht 175.3 cm; Wt 60.0 kg
== END 2017-12-08 10:15 | disposition home or self-care (01) ==
LOC: D.OPS 08:44
DX: Z95.828 Presence of other vascular implants and grafts (principal)

== ENCOUNTER 2017-12-15 18:17 | Inpatient (IN) | payer MEDICARE ==
[~2017-12-15] VITALS: Ht 175.3 cm; Wt 58.2 kg
--- NOTE | ~2017-12-15 | CN ---
PATIENT NAME:LIZ SONG MEDICAL RECORD: [id number] : 39 LOCATION:D. D.2140 ADMIT DATE: 12/15/17 ACCOUNT: [id number] CONSULTING PHYSICIAN: ARA MEJIA MD REFERRING PHYSICIAN: SAMMY ZAMUDIO MD DATE OF CONSULTATION: 12/16/2017 CONSULT REQUESTING PHYSICIAN: Sammy Zamudio MD. REASON FOR CONSULTATION: Acute exacerbation of asthma and COPD. HISTORY OF PRESENT ILLNESS: Ms. Song is an 82-year-old female, very well known to our service. She has a history of bronchiectasis, asthma, COPD, she is sick for the last few days. She was running fever. She is coughing, cough is spasmodic in nature. Cough is productive with yellow green color sputum production. There is no associated hemoptysis. Also, she has worsening backache. There are no night sweats. REVIEW OF SYSTEMS: As in history of present illness. PAST MEDICAL HISTORY: 1. COPD and asthma overlap syndrome. 2. Bronchiectasis. 3. History of pseudomonas pneumonia and colonization. 4. Chronic sinusitis. 5. Chronic hypoxic respiratory failure. 6. History of near syncopal episode. 7. Gastroesophageal reflux disease. 8. History of MTB. 9. History of pulmonary nodule. 10. History of CVA and cardiac arrhythmia. 11. Hypertension. 12. Hypothyroidism. 13. Generalized debility. PAST SURGICAL HISTORY: 1. Cataract surgery. 2. Appendectomy. 3. Cholecystectomy. 4. Status post PEG tube placement. 5. Hysterectomy. 6. Back surgery times 3. 7. Tumor removed from the neck. 8. Excision of the cyst. ALLERGIES: She is allergic to SULFA, PENICILLIN, ____, CODEINE, MORPHINE, and DILTIAZEM. MEDICATIONS: On ZAP is reviewed. PERSONAL AND SOCIAL HISTORY: The patient is a nonsmoker, nondrinker. FAMILY HISTORY: Noncontributory. CONSULT REPORT [id number] LIZ SONG PHYSICAL EXAMINATION: GENERAL: Now, the patient is lying comfortably in bed. She has a persistent cough. VITAL SIGNS: The blood pressure is 128/68, pulse is 107, respiration 18, temperature 99.1, SPO2 is 94% on 2 liters nasal cannula. HEENT: Conjunctivae are pink. Sclerae are not icteric. NECK: Supple. No JVD. CHEST: There is prolonged expiration with wheezing. There are bibasilar crackles. HEART: Rhythm regular, normal sound, no murmur. ABDOMEN: Soft, bowel sounds present. No hepatosplenomegaly. RECTAL: Deferred. EXTREMITIES: No cyanosis, no clubbing, no pedal edema. SKIN: Warm, normal turgor. CENTRAL NERVOUS SYSTEM: The patient is awake and alert. There are no obvious cranial nerve abnormalities. The gait was not tested. LABORATORY DATA: CBC: The WBC is 6.9, hemoglobin 9.1, hematocrit 31 and the platelet count is 408. Chemistry: Sodium 135, potassium is 4, BUN is 18, creatinine 0.8. IMPRESSION: 1. Acute asthma, COPD exacerbation. 2. Acute cough. 3. Acute flareup of bronchiectasis. 4. Acute bronchitis, rule out pneumonia. 5. Asthma. 6. Gastroesophageal reflux disease. 7. History of Mycobacterium tuberculosis. 8. History of pulmonary nodule. RECOMMENDATION: 1. Continue Levaquin. I will add cefepime. 2. Start methylprednisolone IV. Start her on Brovana and budesonide nebulizer. Start on ipratropium, Xopenex nebulizer, Mucinex DM. Check sputum culture and sensitivity. Follow up labs and chest radiograph. 3. Continue vibration vest [address] Zamudio, thank you for involving me in the care of Ms. Song. TRANSINT:[id number] Voice Confirmation ID: [id number] DOCUMENT ID: [id number] ARA MEJIA MD at 1110 CC: [id number] DICTATION DATE: 12/16/171626 ATHLETIC FIELD CUSTODIAN: 12/16/17 1642 DIS IN 12/26/17 [facility] [address] [place] [address]
--- NOTE | ~2017-12-15 | DS ---
PATIENT:LIZ JOYCE :[birth year] MEDICAL RECORD: [id number] DISCHARGE SUMMARY ADMISSION DATE: 12/15/17 DISCHARGE DATE: 12/26/17 DATE OF ADMISSION: 12/15/2017 DATE OF DISCHARGE: 12/26/2017 ADMIT DIAGNOSIS: Shortness of breath. PRINCIPAL DIAGNOSIS: Pneumonia due to Pseudomonas. OTHER DIAGNOSES: Include chronic obstructive pulmonary disease with acute exacerbation, chronic respiratory failure with hypoxia, chronic obstructive pulmonary disease with acute lower respiratory infection, pleural effusion, unspecified protein-calorie malnutrition, body mass index of 19.9 or less, acute bronchitis, chronic sinusitis, essential hypertension, hypothyroidism, gastroparesis, brainstem stroke syndrome, gastroesophageal reflux disease with esophagitis, allergic rhinitis, unspecified atrial fibrillation, anemia. CONSULTS: Pulmonology and infectious disease. PROCEDURES: The patient had ultrasound of right upper quadrant. She had insertion of an infusion catheter. She also had bronchoscopy. HOSPITAL COURSE: The patient was admitted with bronchiectasis, pneumonia, COPD with acute exacerbation, and chronic respiratory failure. Pneumonia was found to be due to Pseudomonas infection. The patient was continued on IV antibiotics. Pulmonology was consulted at time of admission to the hospital. Subsequently, pulmonology consulted infectious disease to help manage the patient's IV antibiotic therapy. Eventually, the patient did require bronchoscopy with rinsing evacuation of mucus plugs and infectious consolidations. After the bronchoscopy, the patient improved; and then the patient eventually was able to be discharged home with home health. DISCHARGE CONDITION: Improving. DISPOSITION: Home. DISCHARGE MEDICATIONS: Please refer to the patient's discharge medication reconciliation form. PLAN: The patient is to follow up in clinic with Ailin Wu in one week after discharge and to follow up with pulmonology per pulmonology recommendations. TRANSINT:[id number] Voice Confirmation ID: [id number] DOCUMENT ID: [id number] DISCHARGE SUMMARY REPORT [id number] JOYCE,SAMMY ROSEN MD at 1700 CC: [id number] DICTATION DATE: 01/08/18 1321 TELEPHONE SERVICES SALES REPRESENTATIVE: 01/08/18 1416 DIS IN 12/26/17 [place] [address]
[2017-12-15] MEDS ORDERED: XANAX0.25 MG PO (21:49)
[2017-12-15] MEDS ORDERED: ULTRAM50 MG PO (21:50)
[2017-12-15] MEDS ORDERED: ROBAXIN500 MG PO (21:50)
[2017-12-15] MEDS ORDERED: DESITIN DIAPER113 GM TOPICAL (21:51)
[2017-12-15] MEDS ORDERED: MIRALAX17 GM PO (21:51)
[2017-12-15] MEDS ORDERED: SALINE NASAL SP45 ML NS (21:51)
[2017-12-15] MEDS ORDERED: GUAIFENESI100 MG/5 M PO (21:52)
[2017-12-16 00:02] VITALS: BP 145/64
[2017-12-16 05:56] LABS: BASOPHILS 0.3 % (0-2); EOSINOPHILS 4.6 % (0-7); HEMOGLOBIN 9.1 g/dL (12-16); IMMATURE GRANULOCYTES 0.1 % (0-5); MCH 21.7 pg (26.0-34.0); MCHC 29.4 g/dL (31.0-37.0); MEAN PLATELET VOLUME 10.7 fL (7.4-10.4); RBC 4.19 10x6/uL (4.00-5.40); RDW 15.8 % (11.5-14.5); WBC 6.9 10x3/uL (4.8-10.8)
[2017-12-16 06:00] LABS: PLATELET COUNT 408 10x3/uL (130-400)
[2017-12-16 06:07] VITALS: BP 159/84
[2017-12-16 06:15] LABS: ANION GAP 10.8 mmol/L (8-16); CALCIUM 8.4 mg/dL (8.5-10.1); CARBON DIOXIDE 28.2 mmol/L (21.0-32.0); CREATININE - SERUM 0.8 mg/dL (0.6-1.3)
[2017-12-16 09:48] VITALS: Ht 175.3 cm; Wt 58.2 kg
[2017-12-16 11:23] VITALS: BP 128/68
[2017-12-16 15:09] VITALS: BP 128/53
[2017-12-16 20:52] VITALS: BP 145/79
[2017-12-17 01:42] VITALS: BP 143/68
[2017-12-17 06:13] VITALS: BP 150/75
[2017-12-17 06:29] LABS: BASOPHILS 0.1 % (0-2); EOSINOPHILS 0 % (0-7); HEMATOCRIT 30.9 % (36.0-48.0); IMMATURE GRANULOCYTES 0.1 % (0-5); LYMPHOCYTES 8.9 % (15-50); MCH 21.6 pg (26.0-34.0); MCHC 29.1 g/dL (31.0-37.0); MCV 74.3 fL (80.0-100.0); MEAN PLATELET VOLUME 10.8 fL (7.4-10.4); MONOCYTES 2.8 % (2-11); NEUTROPHILS 88.1 % (40-80); PLATELET COUNT 440 10x3/uL (130-400); RBC 4.16 10x6/uL (4.00-5.40); RDW 15.8 % (11.5-14.5); WBC 8.3 10x3/uL (4.8-10.8)
[2017-12-17 06:52] LABS: ANION GAP 11.3 mmol/L (8-16); CALCIUM 8.2 mg/dL (8.5-10.1); CREATININE - SERUM 0.8 mg/dL (0.6-1.3); MAGNESIUM - SERUM 1.7 mg/dL (1.8-2.4); POTASSIUM - SERUM 4.3 mmol/L (3.5-5.1)
[2017-12-17 08:17] VITALS: BP 126/77
[2017-12-17 10:58] VITALS: BP 131/71
[2017-12-17 16:12] VITALS: BP 122/69
[2017-12-17 20:25] VITALS: BP 145/68
[2017-12-18 01:16] VITALS: BP 153/65
[2017-12-18 04:30] VITALS: BP 162/72
[2017-12-18 05:32] LABS: BASOPHILS 0 % (0-2); EOSINOPHILS 0 % (0-7); HEMATOCRIT 28.8 % (36.0-48.0); HEMOGLOBIN 8.4 g/dL (12-16); IMMATURE GRANULOCYTES 0.2 % (0-5); LYMPHOCYTES 7.8 % (15-50); MCH 21.6 pg (26.0-34.0); MCHC 29.2 g/dL (31.0-37.0); MCV 74.2 fL (80.0-100.0); MEAN PLATELET VOLUME 10.5 fL (7.4-10.4); MONOCYTES 5.4 % (2-11); NEUTROPHILS 86.6 % (40-80); PLATELET COUNT 407 10x3/uL (130-400); RBC 3.88 10x6/uL (4.00-5.40); RDW 15.7 % (11.5-14.5)
[2017-12-18] MEDS ORDERED: MIDODRINE HCL5 MG PO (05:52)
[2017-12-18 06:01] LABS: CALC OSMOLALITY 278 mosm/kg (275-300); CALCIUM 8.2 mg/dL (8.5-10.1); CARBON DIOXIDE 27.3 mmol/L (21.0-32.0); CHLORIDE - SERUM 102 mmol/L (98-107); CREATININE - SERUM 0.7 mg/dL (0.6-1.3); GLUCOSE 164 mg/dL (74-106); MAGNESIUM - SERUM 2.3 mg/dL (1.8-2.4); POTASSIUM - SERUM 4.3 mmol/L (3.5-5.1); SODIUM 135 mmol/L (136-145); UREA NITROGEN 26 mg/dL (7-18); eGFR NON AFRICAN AMERICAN 85 mL/min (90-120)
[2017-12-18 08:01] VITALS: BP 156/76
[2017-12-18 11:21] VITALS: BP 150/78
[2017-12-18 15:33] VITALS: BP 139/68
[2017-12-18 20:57] VITALS: BP 141/68
[2017-12-19 01:26] VITALS: BP 149/72
[2017-12-19 03:15] LABS: BASOPHILS 0.1 % (0-2); EOSINOPHILS 0 % (0-7); HEMATOCRIT 30.1 % (36.0-48.0); HEMOGLOBIN 8.9 g/dL (12-16); IMMATURE GRANULOCYTES 0.3 % (0-5); LYMPHOCYTES 6.9 % (15-50); MCH 21.7 pg (26.0-34.0); MCHC 29.6 g/dL (31.0-37.0); MCV 73.4 fL (80.0-100.0); MEAN PLATELET VOLUME 10.2 fL (7.4-10.4); MONOCYTES 2.8 % (2-11); NEUTROPHILS 89.9 % (40-80); PLATELET COUNT 441 10x3/uL (130-400); RDW 15.7 % (11.5-14.5); WBC 13.5 10x3/uL (4.8-10.8)
[2017-12-19 03:23] LABS: ANION GAP 9.1 mmol/L (8-16); CALCIUM 8.4 mg/dL (8.5-10.1); CARBON DIOXIDE 31.1 mmol/L (21.0-32.0); CREATININE - SERUM 0.9 mg/dL (0.6-1.3); MAGNESIUM - SERUM 2.7 mg/dL (1.8-2.4); POTASSIUM - SERUM 4.2 mmol/L (3.5-5.1)
[2017-12-19 04:00] VITALS: BP 161/77
[2017-12-19 08:30] VITALS: BP 172/88
[2017-12-19 12:01] VITALS: BP 148/76
[2017-12-19 16:14] VITALS: BP 142/65
[2017-12-19 20:00] VITALS: BP 147/61
[2017-12-20] VITALS: BP 142/64
[2017-12-20 03:46] LABS: BASOPHILS 0.1 % (0-2); EOSINOPHILS 0 % (0-7); HEMATOCRIT 30.4 % (36.0-48.0); HEMOGLOBIN 8.9 g/dL (12-16); IMMATURE GRANULOCYTES 0.2 % (0-5); LYMPHOCYTES 4.5 % (15-50); MCH 21.5 pg (26.0-34.0); MCHC 29.3 g/dL (31.0-37.0); MCV 73.6 fL (80.0-100.0); MEAN PLATELET VOLUME 10.5 fL (7.4-10.4); MONOCYTES 3.3 % (2-11); NEUTROPHILS 91.9 % (40-80); PLATELET COUNT 450 10x3/uL (130-400); RBC 4.13 10x6/uL (4.00-5.40); WBC 15.2 10x3/uL (4.8-10.8)
[2017-12-20 03:55] LABS: ANION GAP 8.7 mmol/L (8-16); CALCIUM 8.7 mg/dL (8.5-10.1); CARBON DIOXIDE 28.6 mmol/L (21.0-32.0); CREATININE - SERUM 0.9 mg/dL (0.6-1.3); MAGNESIUM - SERUM 2.4 mg/dL (1.8-2.4); POTASSIUM - SERUM 4.3 mmol/L (3.5-5.1)
[2017-12-20 04:00] VITALS: BP 122/56
[2017-12-20 07:59] VITALS: BP 150/73
[2017-12-20 11:06] VITALS: BP 142/76
[2017-12-20 15:06] VITALS: BP 138/76
[2017-12-20 16:22] LABS: INR 1.07 (0.85-1.17); PROTIME 13.5 SECONDS (11.6-15.0)
[2017-12-20 20:00] VITALS: BP 150/75
[2017-12-21] VITALS: BP 155/77
[2017-12-21 04:00] VITALS: BP 114/65
[2017-12-21 04:52] LABS: BASOPHILS 0 % (0-2); EOSINOPHILS 0 % (0-7); HEMATOCRIT 32.3 % (36.0-48.0); HEMOGLOBIN 9.5 g/dL (12-16); IMMATURE GRANULOCYTES 0.4 % (0-5); LYMPHOCYTES 7.6 % (15-50); MCH 21.6 pg (26.0-34.0); MCHC 29.4 g/dL (31.0-37.0); MCV 73.6 fL (80.0-100.0); MEAN PLATELET VOLUME 10.5 fL (7.4-10.4); MONOCYTES 5.2 % (2-11); NEUTROPHILS 86.8 % (40-80); RBC 4.39 10x6/uL (4.00-5.40); RDW 15.9 % (11.5-14.5); WBC 16.6 10x3/uL (4.8-10.8)
[2017-12-21 04:58] LABS: PLATELET COUNT 543 10x3/uL (130-400)
[2017-12-21 05:12] LABS: ANION GAP 10.8 mmol/L (8-16); CALCIUM 8.5 mg/dL (8.5-10.1); CARBON DIOXIDE 29.6 mmol/L (21.0-32.0); MAGNESIUM - SERUM 2.7 mg/dL (1.8-2.4); POTASSIUM - SERUM 4.4 mmol/L (3.5-5.1)
[2017-12-21 08:34] LABS: INR 1.06 (0.85-1.17); PROTIME 13.4 SECONDS (11.6-15.0)
[2017-12-21 08:35] LABS: APTT 31.5 SECONDS (22.8-39.4)
[2017-12-21 08:43] VITALS: BP 156/78
[2017-12-21 11:19] VITALS: BP 146/86
[2017-12-21 14:18] LABS: PROTEIN - BODY FLUID 3.9 G/DL
[2017-12-21 15:27] VITALS: BP 154/74
[2017-12-21 15:46] LABS: MESOTHELIALS BF 12 %; NEUT - BF 5 %
[2017-12-21 20:00] VITALS: BP 135/68
[2017-12-22] VITALS: BP 140/63
[2017-12-22 04:00] VITALS: BP 146/70
[2017-12-22 05:33] LABS: INR 1.04 (0.85-1.17); PROTIME 13.2 SECONDS (11.6-15.0)
[2017-12-22 08:47] VITALS: BP 144/79
[2017-12-22 17:26] VITALS: BP 125/68
[2017-12-22 20:00] VITALS: BP 137/70
[2017-12-23] VITALS: BP 145/74
[2017-12-23 04:51] LABS: BASOPHILS 0.1 % (0-2); EOSINOPHILS 0 % (0-7); HEMATOCRIT 29.8 % (36.0-48.0); HEMOGLOBIN 8.8 g/dL (12-16); IMMATURE GRANULOCYTES 0.4 % (0-5); LYMPHOCYTES 3.7 % (15-50); MCH 21.7 pg (26.0-34.0); MCHC 29.5 g/dL (31.0-37.0); MCV 73.6 fL (80.0-100.0); MEAN PLATELET VOLUME 10.6 fL (7.4-10.4); MONOCYTES 3.5 % (2-11); NEUTROPHILS 92.3 % (40-80); RBC 4.05 10x6/uL (4.00-5.40); RDW 16.1 % (11.5-14.5); WBC 19.1 10x3/uL (4.8-10.8)
[2017-12-23 04:55] LABS: PLATELET COUNT 420 10x3/uL (130-400)
[2017-12-23 05:20] LABS: ALBUMIN 2.6 g/dL (3.4-5.0); ANION GAP 10.4 mmol/L (8-16); BILIRUBIN - TOTAL 0.29 mg/dL (0.2-1.3); CALCIUM 7.9 mg/dL (8.5-10.1); CARBON DIOXIDE 29.9 mmol/L (21.0-32.0); CREATININE - SERUM 0.8 mg/dL (0.6-1.3); POTASSIUM - SERUM 4.3 mmol/L (3.5-5.1); PROTEIN - SERUM 6.2 g/dL (6.4-8.2)
[2017-12-23 08:33] VITALS: BP 159/72
[2017-12-23 11:43] VITALS: BP 156/73
[2017-12-23 15:42] VITALS: BP 149/69
[2017-12-23 19:07] LABS: AFB SPECIMEN PROCESSING Not Indicated (())
[2017-12-23 20:23] VITALS: BP 134/62
[2017-12-24] VITALS (7 sets, daily range): BP systolic 110–150; BP diastolic 52–63
[2017-12-24 05:32] LABS: BASOPHILS 0 % (0-2); EOSINOPHILS 0 % (0-7); HEMATOCRIT 30.9 % (36.0-48.0); HEMOGLOBIN 9.1 g/dL (12-16); IMMATURE GRANULOCYTES 0.3 % (0-5); LYMPHOCYTES 3.5 % (15-50); MCH 21.8 pg (26.0-34.0); MCHC 29.4 g/dL (31.0-37.0); MCV 73.9 fL (80.0-100.0); MEAN PLATELET VOLUME 10.6 fL (7.4-10.4); MONOCYTES 5.3 % (2-11); NEUTROPHILS 90.9 % (40-80); PLATELET COUNT 421 10x3/uL (130-400); RBC 4.18 10x6/uL (4.00-5.40); RDW 16.4 % (11.5-14.5); WBC 17.8 10x3/uL (4.8-10.8)
[2017-12-24 05:57] LABS: ALBUMIN 2.7 g/dL (3.4-5.0); ANION GAP 11.9 mmol/L (8-16); BILIRUBIN - TOTAL 0.23 mg/dL (0.2-1.3); CARBON DIOXIDE 28.3 mmol/L (21.0-32.0); CREATININE - SERUM 0.8 mg/dL (0.6-1.3); POTASSIUM - SERUM 4.2 mmol/L (3.5-5.1); PROTEIN - SERUM 6.5 g/dL (6.4-8.2)
[2017-12-24 13:16] LABS: FUNGUS STAIN Final report (())
[2017-12-25] VITALS (7 sets, daily range): BP systolic 110–165; BP diastolic 40–77
[2017-12-25 02:32] LABS: BASOPHILS 0 % (0-2); EOSINOPHILS 0 % (0-7); HEMATOCRIT 28.4 % (36.0-48.0); HEMOGLOBIN 8.3 g/dL (12-16); IMMATURE GRANULOCYTES 0.4 % (0-5); LYMPHOCYTES 2.8 % (15-50); MCH 21.6 pg (26.0-34.0); MCHC 29.2 g/dL (31.0-37.0); MEAN PLATELET VOLUME 10.6 fL (7.4-10.4); MONOCYTES 4.4 % (2-11); NEUTROPHILS 92.4 % (40-80); RBC 3.84 10x6/uL (4.00-5.40); RDW 16.4 % (11.5-14.5); WBC 16.9 10x3/uL (4.8-10.8)
[2017-12-25 02:36] LABS: PLATELET COUNT 336 10x3/uL (130-400)
[2017-12-25 02:47] LABS: ALBUMIN 2.5 g/dL (3.4-5.0); ALKALINE PHOSPHATASE 104 U/L (46-116); ALT (SGPT) 20 U/L (10-68); BILIRUBIN - TOTAL 0.16 mg/dL (0.2-1.3); CALC OSMOLALITY 290 mosm/kg (275-300); CALCIUM 7.7 mg/dL (8.5-10.1); CARBON DIOXIDE 29.1 mmol/L (21.0-32.0); CHLORIDE - SERUM 105 mmol/L (98-107); CREATININE - SERUM 0.7 mg/dL (0.6-1.3); GLUCOSE 150 mg/dL (74-106); POTASSIUM - SERUM 4.4 mmol/L (3.5-5.1); SODIUM 140 mmol/L (136-145); UREA NITROGEN 38 mg/dL (7-18); eGFR NON AFRICAN AMERICAN 85 mL/min (90-120)
[2017-12-26] VITALS: BP 147/68
[2017-12-26 04:00] VITALS: BP 129/62
[2017-12-26 05:11] LABS: BASOPHILS 0 % (0-2); EOSINOPHILS 0 % (0-7); HEMATOCRIT 29.8 % (36.0-48.0); HEMOGLOBIN 8.6 g/dL (12-16); IMMATURE GRANULOCYTES 0.2 % (0-5); LYMPHOCYTES 5.7 % (15-50); MCH 21.4 pg (26.0-34.0); MCHC 28.9 g/dL (31.0-37.0); MCV 74.3 fL (80.0-100.0); MEAN PLATELET VOLUME 10.9 fL (7.4-10.4); MONOCYTES 5.3 % (2-11); NEUTROPHILS 88.8 % (40-80); PLATELET COUNT 329 10x3/uL (130-400); RBC 4.01 10x6/uL (4.00-5.40); RDW 16.9 % (11.5-14.5)
[2017-12-26 05:42] LABS: ALBUMIN 2.5 g/dL (3.4-5.0); ALKALINE PHOSPHATASE 107 U/L (46-116); ALT (SGPT) 20 U/L (10-68); BILIRUBIN - TOTAL 0.18 mg/dL (0.2-1.3); CALC OSMOLALITY 287 mosm/kg (275-300); CARBON DIOXIDE 27.3 mmol/L (21.0-32.0); CHLORIDE - SERUM 104 mmol/L (98-107); CREATININE - SERUM 0.7 mg/dL (0.6-1.3); GLUCOSE 153 mg/dL (74-106); POTASSIUM - SERUM 4.4 mmol/L (3.5-5.1); PROTEIN - SERUM 5.9 g/dL (6.4-8.2); SODIUM 139 mmol/L (136-145); UREA NITROGEN 33 mg/dL (7-18); eGFR NON AFRICAN AMERICAN 85 mL/min (90-120)
[2017-12-26 09:30] VITALS: BP 140/65
[2017-12-26] MEDS ORDERED: MEDROL DOSE PACK4 MG PO (12:26)
[2017-12-26 12:47] VITALS: BP 137/64
[2017-12-26] MEDS ORDERED: CIPRO500 MG PO (14:18)
[2018-01-01 19:13] LABS: AEROBE ID Final report (())
[2018-01-19 09:09] LABS: FUNGUS MYCOLOGY CULTURE Final report (())
[2018-02-13 07:34] LABS: ACID FAST CULTURE Negative (()); ACID FAST SMEAR Negative (())
== END 2017-12-26 16:18 | disposition home or self-care (01) | DRG 177 ==
LOC: D.M2 18:17
PROVIDERS: Family Medicine; General Practice; Internal Medicine Pulmonary Disease
PROC: 0W9B3ZZ Drainage of Left Pleural Cavity, Percutaneous Approach (ICD-10-PCS; principal; 2017-12-21 12:50)
PROC: 05HD33Z Insertion of Infusion Device into Right Cephalic Vein, Percutaneous Approach (ICD-10-PCS; 2017-12-26)
PROC: B54MZZA Ultrasonography of Right Upper Extremity Veins, Guidance (ICD-10-PCS; 2017-12-26)
DX: J15.1 Pneumonia due to Pseudomonas (principal); E43 Unspecified severe protein-calorie malnutrition; J44.1 Chronic obstructive pulmonary disease with (acute) exacerbation; M35.1 Other overlap syndromes; J96.11 Chronic respiratory failure with hypoxia; J44.0 Chronic obstructive pulmonary disease with (acute) lower respiratory infection; J90 Pleural effusion, not elsewhere classified; E46 Unspecified protein-calorie malnutrition; Z68.1 Body mass index [BMI] 19.9 or less, adult; J20.9 Acute bronchitis, unspecified; J32.9 Chronic sinusitis, unspecified; I10 Essential (primary) hypertension; E03.9 Hypothyroidism, unspecified; K31.84 Gastroparesis; G46.3 Brain stem stroke syndrome; K21.0 Gastro-esophageal reflux disease with esophagitis; J30.9 Allergic rhinitis, unspecified; I48.91 Unspecified atrial fibrillation; D64.9 Anemia, unspecified

== ENCOUNTER 2018-02-06 11:15 | Inpatient (IN) | payer MEDICARE ==
[~2018-02-06] VITALS: Ht 175.3 cm; Wt 58.4 kg
--- NOTE | ~2018-02-06 | HEMODYNAMI ---
PATIENT:LIZ JOYCE MEDICAL RECORD: [id number] : 39 LOCATION:[facility] D.2137 ADMISSION DATE: 02/06/18 Generatedon:02/12/20189:52 Patient name: LIZ JOYCE Patient #: [id number] SSN: DO B: 1935 Date of study: 02/12/2018 Page: Of Hemodynamic Procedure Report Patient Data Patient Demographics Procedure consent was obtained First Name: LIZ Gender: Female Last Name: MARIA DEL CARMEN : 1935 Middle Initial: E Age: 82 year(s) Patient #: [id number] Race: Unknown Additional ID: [id number] Contact details Address: [address] [place] [address] State: [place] City: [facility] Zip code: [address] Past Medical History Allergies Allergen Reaction Date Comments Reported Morphine 02/12/2018 Codeine 02/12/2018 Admission Admission Data Admission Date: 02/06/2018 Admission Time: 11:15 Room #: D.2137 Procedure Procedure Types Cath Procedure Peripheral Cath Diagnostic Procedure Miscellaneous Procedure Description Procedure Date Procedure Date: 02/12/2018 Procedure Start Time: 9:41 Procedure Staff Name Function Miguelangel Mejia MD Performing Physician Niyah Cote RT Monitor Bhaskar SPAIN Scrub Yanni Sawyer RN Nurse Procedure Data Cath Procedure Fluoroscopy Diagnostic fluoroscopy Total fluoroscopy Time: 1.7 time: 1.7 min min Diagnostic fluoroscopy Total fluoroscopy dose: 10 dose: 10 mGy mGy Contrast Material Contrast Material Type Amount (ml) Isovue 300 35 Hemodynamics Rest Pre Cath Intra NCS Post Cath Procedure Log Time Note 9:12:21 Bhaskar Hoff RT (R) (CV) sent for patient. Start room use. 9:12:28 Time tracking: Regular hours (M-F 7:00 - 5:00) 9:12:37 Correct patient and procedure confirmed by team. 9:12:40 Signed procedure consent form obtained from patient. 9:12:42 Full Disclosure recording started 9:12:42 9:12:43 Pre-procedure instructions explained to patient. 9:12:45 Pre-op teaching completed and patient verbalized understanding. 9:13:05 Patient allergic to Morphine 9:13:12 Patient allergic to Codeine 9:13:25 pt states not blood thinners 9:13:39 Alarms reviewed by R. N. 9:13:40 Sharps counted by scrub and verified by R.N. 9:13:51 Left abdomen area was prepped with betadine and draped in sterile fashion 9:13:57 Use device set IR Diagnostic 9:13:58 Tegaderm 4 x 4 (1626W) opened to sterile field. 9:13:58 Sterile Angiographic Pack opened to sterile field. 9:40:28 Bag Decanter () opened to sterile field. 9:40:38 Physician arrived 9:40:45 --------ALL STOP TIME OUT------ 9:40:46 Final Timeout: patient, procedure, and site verified with staff and physician. All members of the team are in agreement. 9:41:13 Procedure started. 9:42:51 GLIDE WIRE ANGLE 180cm (AW9131) opened to sterile field. 9:51:11 JEJUNAL 22Fr 45cm Tube (156915) opened to sterile field. 9:51:18 Procedure ended.(Physican Out) 9:51:28 Fluoroscopy time 01.70 minutes. 9:51:34 Fluoroscopy dose: 10 mGy 9:51:34 Flurop Dose total: 10 9:51:40 Contrast amount:Isovue 300 35ml. 9:52:14 Procedure and supply charges have been captured, reviewed, submitted and are correct. Device Usage Item Name Manufacture Quantity Catalog Hospital Part Current Minimal Lot# / Number Charge Number Stock Stock Serial# Code Tegaderm 4 x 3M 1 1626W 200520 171105 244275 5 4 (1626W) Sterile Cardinal 1 [id number] 573283 142598 5 Angiographic Health Pack Bag Decanter Microtek 1 718251 08835 630511 5 () Medical Inc. GLIDE WIRE Terumo 1 [id number] 636391 184340 810183 5 ANGLE 180cm (NX3294) JEJUNAL 22Fr Halyard 1 345609 243855 072377 5 45cm [employer] (947273) Signature Audit [place] Stage Time Signature Unsigned Intra-Procedure 02/12/2018 Niyah Cote 9:52:45 AM RT(R) Signatures Monitor : Niyah Cote RT Signature : Date : Time : [address] [address]
[~2018-02-06 11:15] MED LIST changes: +CIPRO500 MG PO; +DESITIN DIAPER113 GM TOPICAL; +GUAIFENESI100 MG/5 M PO; +MIRALAX17 GM PO
[2018-02-06 12:34] VITALS: BP 140/61; BMI 19.1
[2018-02-06 13:53] LABS: ANION GAP 11.2 mmol/L (8-16); CALCIUM 8.4 mg/dL (8.5-10.1); CARBON DIOXIDE 27.2 mmol/L (21.0-32.0); POTASSIUM - SERUM 4.4 mmol/L (3.5-5.1)
[2018-02-06 14:44] LABS: BASOPHILS 0.1 % (0-2); EOSINOPHILS 0.5 % (0-7); HEMATOCRIT 32.4 % (36.0-48.0); HEMOGLOBIN 9.6 g/dL (12-16); IMMATURE GRANULOCYTES 0.2 % (0-5); LYMPHOCYTES 7.4 % (15-50); MCH 21.5 pg (26.0-34.0); MCHC 29.6 g/dL (31.0-37.0); MCV 72.6 fL (80.0-100.0); MEAN PLATELET VOLUME 10.4 fL (7.4-10.4); MONOCYTES 3.8 % (2-11); RBC 4.46 10x6/uL (4.00-5.40); RDW 15.9 % (11.5-14.5); WBC 15.1 10x3/uL (4.8-10.8)
[2018-02-06 14:46] LABS: PLATELET COUNT 465 10x3/uL (130-400)
[2018-02-06 16:55] VITALS: BP 131/59
[2018-02-06 21:22] VITALS: BP 114/63
[2018-02-07 01:07] VITALS: BP 115/56
[2018-02-07 05:13] VITALS: BP 124/63
[2018-02-07 05:56] LABS: BASOPHILS 0.1 % (0-2); EOSINOPHILS 4.3 % (0-7); HEMATOCRIT 28.4 % (36.0-48.0); HEMOGLOBIN 8.3 g/dL (12-16); IMMATURE GRANULOCYTES 0.3 % (0-5); LYMPHOCYTES 18.6 % (15-50); MCH 21.3 pg (26.0-34.0); MCHC 29.2 g/dL (31.0-37.0); MCV 72.8 fL (80.0-100.0); MEAN PLATELET VOLUME 10.1 fL (7.4-10.4); MONOCYTES 10.1 % (2-11); NEUTROPHILS 66.6 % (40-80); PLATELET COUNT 394 10x3/uL (130-400)
[2018-02-07 06:08] LABS: WBC 7.2 10x3/uL (4.8-10.8)
[2018-02-07 06:21] LABS: CALCIUM 8.2 mg/dL (8.5-10.1); CARBON DIOXIDE 26.9 mmol/L (21.0-32.0); CREATININE - SERUM 0.9 mg/dL (0.6-1.3); MAGNESIUM - SERUM 2.3 mg/dL (1.8-2.4); PHOSPHOROUS 4.3 mg/dL (2.5-4.9); POTASSIUM - SERUM 3.9 mmol/L (3.5-5.1)
[2018-02-07 09:45] VITALS: BP 136/61
[2018-02-07 12:52] VITALS: BP 135/69
[2018-02-07 16:40] VITALS: BP 115/61
[2018-02-07 21:20] VITALS: BP 134/66
[2018-02-08 02:00] VITALS: BP 141/63
[2018-02-08 06:00] VITALS: BP 108/54
[2018-02-08 06:03] LABS: BASOPHILS 0.3 % (0-2); EOSINOPHILS 8.5 % (0-7); HEMATOCRIT 28.4 % (36.0-48.0); HEMOGLOBIN 8.2 g/dL (12-16); IMMATURE GRANULOCYTES 0.2 % (0-5); LYMPHOCYTES 14.2 % (15-50); MCH 21.2 pg (26.0-34.0); MCHC 28.9 g/dL (31.0-37.0); MCV 73.4 fL (80.0-100.0); MEAN PLATELET VOLUME 10.1 fL (7.4-10.4); MONOCYTES 9.9 % (2-11); NEUTROPHILS 66.9 % (40-80); PLATELET COUNT 375 10x3/uL (130-400); RBC 3.87 10x6/uL (4.00-5.40); RDW 15.9 % (11.5-14.5); WBC 6.5 10x3/uL (4.8-10.8)
[2018-02-08 06:16] LABS: ANION GAP 9.7 mmol/L (8-16); CALCIUM 8.2 mg/dL (8.5-10.1); CARBON DIOXIDE 26.6 mmol/L (21.0-32.0); CREATININE - SERUM 0.8 mg/dL (0.6-1.3); POTASSIUM - SERUM 4.3 mmol/L (3.5-5.1)
[2018-02-08 08:00] VITALS: BP 131/55
[2018-02-08 11:07] VITALS: BMI 19.0
[2018-02-08 17:16] VITALS: BP 147/71
[2018-02-08 17:22] VITALS: BP 147/71
[2018-02-08 20:00] VITALS: BP 129/70
[2018-02-09] VITALS (7 sets, daily range): BP systolic 133–158; BP diastolic 55–76
[2018-02-09 05:05] LABS: BASOPHILS 0.3 % (0-2); EOSINOPHILS 10.3 % (0-7); HEMATOCRIT 26.8 % (36.0-48.0); HEMOGLOBIN 7.8 g/dL (12-16); IMMATURE GRANULOCYTES 0.2 % (0-5); LYMPHOCYTES 16.9 % (15-50); MCH 21.1 pg (26.0-34.0); MCHC 29.1 g/dL (31.0-37.0); MCV 72.6 fL (80.0-100.0); MEAN PLATELET VOLUME 10.4 fL (7.4-10.4); MONOCYTES 13.3 % (2-11); PLATELET COUNT 392 10x3/uL (130-400); RBC 3.69 10x6/uL (4.00-5.40); WBC 5.8 10x3/uL (4.8-10.8)
[2018-02-09 05:18] LABS: ANION GAP 12.1 mmol/L (8-16); CARBON DIOXIDE 26.3 mmol/L (21.0-32.0); CREATININE - SERUM 0.8 mg/dL (0.6-1.3); POTASSIUM - SERUM 4.4 mmol/L (3.5-5.1)
[2018-02-09 10:12] LABS: % SATURATION 4 % (15-55); IRON 12 ug/dl (35-150); TOTAL IRON BIND CAPACITY 281 ug/dl (260-445); UNSAT IRON BIND CAPACITY 269 ug/dl (150-375)
[2018-02-10 04:00] VITALS: BP 153/62
[2018-02-10 06:12] LABS: ALBUMIN 2.6 g/dL (3.4-5.0); ANION GAP 13.7 mmol/L (8-16); BILIRUBIN - TOTAL 0.2 mg/dL (0.2-1.3); CARBON DIOXIDE 26.1 mmol/L (21.0-32.0); CREATININE - SERUM 0.8 mg/dL (0.6-1.3); POTASSIUM - SERUM 4.8 mmol/L (3.5-5.1); PROTEIN - SERUM 5.8 g/dL (6.4-8.2)
[2018-02-10 08:08] VITALS: BP 100/58
[2018-02-10 11:00] VITALS: BP 151/87
[2018-02-10 15:50] VITALS: BP 149/69
[2018-02-10 20:14] VITALS: BP 111/63
[2018-02-11 00:19] VITALS: BP 153/77
[2018-02-11 04:00] VITALS: BP 151/85
[2018-02-11 06:25] LABS: BASOPHILS 0.3 % (0-2); EOSINOPHILS 9.3 % (0-7); HEMATOCRIT 34.5 % (36.0-48.0); HEMOGLOBIN 10.4 g/dL (12-16); IMMATURE GRANULOCYTES 0.2 % (0-5); LYMPHOCYTES 19.3 % (15-50); MCH 22.4 pg (26.0-34.0); MCHC 30.1 g/dL (31.0-37.0); MCV 74.2 fL (80.0-100.0); MEAN PLATELET VOLUME 10.4 fL (7.4-10.4); MONOCYTES 10.2 % (2-11); NEUTROPHILS 60.7 % (40-80); PLATELET COUNT 382 10x3/uL (130-400); RBC 4.65 10x6/uL (4.00-5.40); RDW 17.1 % (11.5-14.5); WBC 6.1 10x3/uL (4.8-10.8)
[2018-02-11 07:09] LABS: ANION GAP 12.4 mmol/L (8-16); CALCIUM 8.4 mg/dL (8.5-10.1); CARBON DIOXIDE 27.9 mmol/L (21.0-32.0); CREATININE - SERUM 0.8 mg/dL (0.6-1.3); POTASSIUM - SERUM 4.3 mmol/L (3.5-5.1)
[2018-02-11 07:50] VITALS: BP 157/77
[2018-02-11 08:00] VITALS: BP 167/71
[2018-02-11 15:11] VITALS: BP 126/55
[2018-02-11 18:47] VITALS: Ht 175.3 cm; Wt 58.4 kg
[2018-02-12] VITALS: BP 153/82
[2018-02-12 04:00] VITALS: BP 150/64
[2018-02-12 05:58] LABS: BASOPHILS 0.6 % (0-2); EOSINOPHILS 7.4 % (0-7); HEMATOCRIT 33.7 % (36.0-48.0); HEMOGLOBIN 10.2 g/dL (12-16); IMMATURE GRANULOCYTES 0.1 % (0-5); LYMPHOCYTES 20.9 % (15-50); MCH 22.4 pg (26.0-34.0); MCHC 30.3 g/dL (31.0-37.0); MCV 74.1 fL (80.0-100.0); MEAN PLATELET VOLUME 10.7 fL (7.4-10.4); MONOCYTES 10.5 % (2-11); NEUTROPHILS 60.5 % (40-80); PLATELET COUNT 388 10x3/uL (130-400); RBC 4.55 10x6/uL (4.00-5.40); RDW 17.2 % (11.5-14.5); WBC 7.2 10x3/uL (4.8-10.8)
[2018-02-12 06:14] LABS: ANION GAP 10.8 mmol/L (8-16); CALCIUM 8.4 mg/dL (8.5-10.1); CARBON DIOXIDE 26.5 mmol/L (21.0-32.0); CREATININE - SERUM 0.8 mg/dL (0.6-1.3); POTASSIUM - SERUM 4.3 mmol/L (3.5-5.1)
[2018-02-12 06:31] LABS: APTT 36.5 SECONDS (22.8-39.4); INR 1.02 (0.85-1.17)
[2018-02-12 07:46] VITALS: BP 143/64
[2018-02-12 11:26] VITALS: BP 135/62
[2018-02-12 15:13] VITALS: BP 134/64
[2018-02-12 20:41] VITALS: BP 140/59
[2018-02-13 04:56] VITALS: BP 136/77
[2018-02-13 07:46] LABS: ANION GAP 10.7 mmol/L (8-16); CALCIUM 8.4 mg/dL (8.5-10.1); CARBON DIOXIDE 28.5 mmol/L (21.0-32.0); POTASSIUM - SERUM 4.2 mmol/L (3.5-5.1)
[2018-02-13 07:47] LABS: CREATININE - SERUM 1.2 mg/dL (0.6-1.3)
[2018-02-13 08:08] LABS: HEMATOCRIT 34.3 % (36.0-48.0); HEMOGLOBIN 10.6 g/dL (12-16); LYMPHOCYTES 19.7 % (15-50); MCHC 30.9 g/dL (31.0-37.0); MCV 74.4 fL (80.0-100.0); MEAN PLATELET VOLUME 10.7 fL (7.4-10.4); NEUTROPHILS 72.1 % (40-80); PLATELET COUNT 427 10x3/uL (130-400); RBC 4.61 10x6/uL (4.00-5.40); RDW 16.8 % (11.5-14.5); WBC 8.4 10x3/uL (4.8-10.8)
[2018-02-13 13:26] VITALS: BP 137/63
[2018-02-13 18:00] VITALS: BP 133/57
[2018-02-13 20:00] VITALS: BP 145/58
[2018-02-14 04:00] VITALS: BP 143/64
[2018-02-14 08:20] VITALS: BP 133/56
[2018-02-14 12:09] VITALS: BP 109/67
== END 2018-02-14 13:30 | disposition home health service (06) | DRG 191 ==
LOC: D.M2 11:15 → D.SDCHOLD 02-10 07:34 → D.M2 02-14 13:30
PROVIDERS: Family Medicine; Internal Medicine Gastroenterology; Internal Medicine Pulmonary Disease; Radiology Vascular & Interventional Radiology
PROC: 0D2DXUZ Change Feeding Device in Lower Intestinal Tract, External Approach (ICD-10-PCS; 2018-02-12)
PROC: 0DB78ZX Excision of Stomach, Pylorus, Via Natural or Artificial Opening Endoscopic, Diagnostic (ICD-10-PCS; 2018-02-13)
PROC: 0DBP8ZZ Excision of Rectum, Via Natural or Artificial Opening Endoscopic (ICD-10-PCS; 2018-02-13)
PROC: 0DB98ZX Excision of Duodenum, Via Natural or Artificial Opening Endoscopic, Diagnostic (ICD-10-PCS; principal; 2018-02-13 07:00)
DX: J47.9 Bronchiectasis, uncomplicated (principal); J44.1 Chronic obstructive pulmonary disease with (acute) exacerbation; M35.1 Other overlap syndromes; K62.5 Hemorrhage of anus and rectum; I48.91 Unspecified atrial fibrillation; F41.9 Anxiety disorder, unspecified; S00.93XA Contusion of unspecified part of head, initial encounter; S70.01XA Contusion of right hip, initial encounter; S20.211A Contusion of right front wall of thorax, initial encounter; W19.XXXA Unspecified fall, initial encounter; K21.9 Gastro-esophageal reflux disease without esophagitis; I10 Essential (primary) hypertension; E03.9 Hypothyroidism, unspecified; D64.9 Anemia, unspecified; R91.8 Other nonspecific abnormal finding of lung field; J30.9 Allergic rhinitis, unspecified; K62.1 Rectal polyp; K64.8 Other hemorrhoids; K44.9 Diaphragmatic hernia without obstruction or gangrene; K29.70 Gastritis, unspecified, without bleeding; S20.219A Contusion of unspecified front wall of thorax, initial encounter; Z86.73 Personal history of transient ischemic attack (TIA), and cerebral infarction without residual deficits

== ENCOUNTER 2018-03-02 09:43 | Inpatient (IN) | payer MEDICARE ==
[~2018-03-02] VITALS: Ht 175.3 cm; Wt 60.3 kg
[2018-03-02] MEDS ORDERED: LEVAQUIN250 MG PO (10:17)
[2018-03-02 11:04] LABS: BASOPHILS 0.1 % (0-2); EOSINOPHILS 3.2 % (0-7); HEMATOCRIT 34.5 % (36.0-48.0); HEMOGLOBIN 10.3 g/dL (12-16); IMMATURE GRANULOCYTES 0.3 % (0-5); LYMPHOCYTES 9.7 % (15-50); MCH 22.4 pg (26.0-34.0); MCHC 29.9 g/dL (31.0-37.0); MCV 75.2 fL (80.0-100.0); MEAN PLATELET VOLUME 10.4 fL (7.4-10.4); MONOCYTES 4.9 % (2-11); NEUTROPHILS 81.8 % (40-80); PLATELET COUNT 539 10x3/uL (130-400); RBC 4.59 10x6/uL (4.00-5.40); RDW 17.2 % (11.5-14.5); WBC 16.6 10x3/uL (4.8-10.8)
[2018-03-02 11:16] LABS: ANION GAP 14.7 mmol/L (8-16); CARBON DIOXIDE 25.7 mmol/L (21.0-32.0); CREATININE - SERUM 0.8 mg/dL (0.6-1.3); POTASSIUM - SERUM 4.4 mmol/L (3.5-5.1)
[2018-03-02 13:05] VITALS: BP 131/60
[2018-03-02 15:56] VITALS: BP 134/56
[2018-03-02 21:53] VITALS: BP 137/58
[2018-03-02 23:30] LABS: APPEARANCE CLEAR (CLEAR); BILIRUBIN NEGATIVE (NEGATIVE); COLOR YELLOW (YELLOW); GLUCOSE NEGATIVE (NEGATIVE); KETONE NEGATIVE (NEGATIVE); NITRITE NEGATIVE (NEGATIVE); PROTEIN NEGATIVE (NEGATIVE); SPECIFIC GRAVITY 1.015 (1.005-1.020); UROBILINOGEN NORMAL (NORMAL)
[2018-03-03 05:28] LABS: BASOPHILS 0.1 % (0-2); EOSINOPHILS 6.6 % (0-7); HEMATOCRIT 30.9 % (36.0-48.0); HEMOGLOBIN 9.1 g/dL (12-16); IMMATURE GRANULOCYTES 0.2 % (0-5); MCH 21.9 pg (26.0-34.0); MCHC 29.4 g/dL (31.0-37.0); MCV 74.3 fL (80.0-100.0); MEAN PLATELET VOLUME 10.7 fL (7.4-10.4); MONOCYTES 10.5 % (2-11); NEUTROPHILS 64.6 % (40-80); PLATELET COUNT 494 10x3/uL (130-400); RBC 4.16 10x6/uL (4.00-5.40); RDW 17.1 % (11.5-14.5)
[2018-03-03 05:49] LABS: CALC OSMOLALITY 274 mosm/kg (275-300); CALCIUM 8.4 mg/dL (8.5-10.1); CARBON DIOXIDE 26.7 mmol/L (21.0-32.0); CHLORIDE - SERUM 102 mmol/L (98-107); CREATININE - SERUM 0.7 mg/dL (0.6-1.3); GLUCOSE 136 mg/dL (74-106); MAGNESIUM - SERUM 2.1 mg/dL (1.8-2.4); PHOSPHOROUS 3.9 mg/dL (2.5-4.9); POTASSIUM - SERUM 4.3 mmol/L (3.5-5.1); SODIUM 135 mmol/L (136-145); UREA NITROGEN 22 mg/dL (7-18); eGFR NON AFRICAN AMERICAN 85 mL/min (90-120)
[2018-03-03 05:51] LABS: WBC 8.3 10x3/uL (4.8-10.8)
[2018-03-03 06:56] VITALS: BP 133/64
[2018-03-03 08:34] VITALS: BMI 19.2
[2018-03-03 11:13] VITALS: BP 140/51
[2018-03-03 16:12] VITALS: BP 147/61
[2018-03-03 22:48] VITALS: BP 117/58
[2018-03-04 09:00] VITALS: BP 141/56
[2018-03-04 12:12] VITALS: BP 151/75
[2018-03-04 16:37] VITALS: BP 158/74
[2018-03-04 21:18] VITALS: BP 144/69
[2018-03-05] VITALS: BP 136/59
[2018-03-05 04:00] VITALS: BP 146/76
[2018-03-05 05:40] LABS: BASOPHILS 0.5 % (0-2); EOSINOPHILS 7.7 % (0-7); HEMATOCRIT 30.8 % (36.0-48.0); HEMOGLOBIN 9.2 g/dL (12-16); IMMATURE GRANULOCYTES 0.3 % (0-5); LYMPHOCYTES 19.2 % (15-50); MCHC 29.9 g/dL (31.0-37.0); MCV 73.7 fL (80.0-100.0); MEAN PLATELET VOLUME 10.2 fL (7.4-10.4); MONOCYTES 10.4 % (2-11); NEUTROPHILS 61.9 % (40-80); PLATELET COUNT 483 10x3/uL (130-400); RBC 4.18 10x6/uL (4.00-5.40); RDW 16.9 % (11.5-14.5); WBC 7.8 10x3/uL (4.8-10.8)
[2018-03-05 06:05] LABS: ANION GAP 14.8 mmol/L (8-16); CALCIUM 8.7 mg/dL (8.5-10.1); CARBON DIOXIDE 23.7 mmol/L (21.0-32.0); CREATININE - SERUM 0.8 mg/dL (0.6-1.3); POTASSIUM - SERUM 4.5 mmol/L (3.5-5.1)
[2018-03-05 08:36] VITALS: BP 139/72
[2018-03-05 11:41] VITALS: BP 142/67
[2018-03-05 15:48] VITALS: BP 140/70
[2018-03-05 20:00] VITALS: BP 168/86
[2018-03-06 04:00] VITALS: BP 156/75
[2018-03-06 08:04] VITALS: BP 142/67
[2018-03-06 10:58] VITALS: BP 136/70
[2018-03-06 15:24] VITALS: BP 181/77
[2018-03-06 21:04] VITALS: BP 142/63
[2018-03-07 05:15] LABS: BASOPHILS 0.4 % (0-2); EOSINOPHILS 3.4 % (0-7); HEMATOCRIT 31.5 % (36.0-48.0); HEMOGLOBIN 9.4 g/dL (12-16); IMMATURE GRANULOCYTES 0.3 % (0-5); LYMPHOCYTES 11.7 % (15-50); MCH 22.1 pg (26.0-34.0); MCHC 29.8 g/dL (31.0-37.0); MCV 74.1 fL (80.0-100.0); MEAN PLATELET VOLUME 10.6 fL (7.4-10.4); MONOCYTES 8.7 % (2-11); NEUTROPHILS 75.5 % (40-80); PLATELET COUNT 506 10x3/uL (130-400); RBC 4.25 10x6/uL (4.00-5.40); RDW 16.9 % (11.5-14.5); WBC 9.8 10x3/uL (4.8-10.8)
[2018-03-07 05:28] LABS: ALBUMIN 2.5 g/dL (3.4-5.0); ANION GAP 12.1 mmol/L (8-16); BILIRUBIN - DIRECT 0.06 mg/dL (0.00-0.30); BILIRUBIN - INDIRECT 0.06 mg/dL (0.00-1.00); BILIRUBIN - TOTAL 0.12 mg/dL (0.2-1.3); CALCIUM 8.4 mg/dL (8.5-10.1); CARBON DIOXIDE 25.1 mmol/L (21.0-32.0); CREATININE - SERUM 0.8 mg/dL (0.6-1.3); POTASSIUM - SERUM 4.2 mmol/L (3.5-5.1); PROTEIN - SERUM 6.7 g/dL (6.4-8.2)
[2018-03-07 05:48] VITALS: BP 147/80
[2018-03-07 20:29] VITALS: BP 144/67
[2018-03-08 05:16] VITALS: BP 140/60
[2018-03-08 08:23] VITALS: BP 136/83
[2018-03-08 11:43] VITALS: BP 133/60
[2018-03-08 13:16] VITALS: Ht 175.3 cm; Wt 60.3 kg
[2018-03-08 15:21] VITALS: BP 137/61
[2018-03-08 20:00] VITALS: BP 113/55
[2018-03-09 00:56] VITALS: BP 128/53
[2018-03-09 04:00] VITALS: BP 129/62
[2018-03-09 05:39] LABS: CALC OSMOLALITY 284 mosm/kg (275-300); CALCIUM 8.6 mg/dL (8.5-10.1); CHLORIDE - SERUM 103 mmol/L (98-107); CREATININE - SERUM 0.7 mg/dL (0.6-1.3); GLUCOSE 131 mg/dL (74-106); POTASSIUM - SERUM 4.9 mmol/L (3.5-5.1); SODIUM 138 mmol/L (136-145); UREA NITROGEN 31 mg/dL (7-18); eGFR NON AFRICAN AMERICAN 85 mL/min (90-120)
[2018-03-09 08:38] VITALS: BP 128/66
[2018-03-09 12:15] VITALS: BP 122/56
[2018-03-09 15:59] VITALS: BP 129/60
[2018-03-09 22:06] VITALS: BP 139/62
[2018-03-10 00:47] VITALS: BP 106/41
[2018-03-10 05:23] VITALS: BP 130/60
[2018-03-10 08:30] VITALS: BP 180/50
== END 2018-03-10 11:30 | disposition home health service (06) | DRG 192 ==
LOC: D.M2 09:43 → D.SDCHOLD 09:43 → D.M2 09:48
PROVIDERS: Family Medicine; Internal Medicine Gastroenterology; Internal Medicine Pulmonary Disease
DX: J47.1 Bronchiectasis with (acute) exacerbation (principal); J47.0 Bronchiectasis with acute lower respiratory infection; F41.9 Anxiety disorder, unspecified; K21.9 Gastro-esophageal reflux disease without esophagitis; E03.9 Hypothyroidism, unspecified; I10 Essential (primary) hypertension; J30.9 Allergic rhinitis, unspecified; R91.1 Solitary pulmonary nodule; J15.1 Pneumonia due to Pseudomonas; K31.84 Gastroparesis; D50.9 Iron deficiency anemia, unspecified; Z86.73 Personal history of transient ischemic attack (TIA), and cerebral infarction without residual deficits; Z87.01 Personal history of pneumonia (recurrent)

== ENCOUNTER → 2018-03-24 19:25 | Outpatient (CLI) | payer MEDICARE ==
[2018-03-08 13:16] VITALS: BMI 19.2
[~2018-03-24 19:25] MED LIST changes: +LEVAQUIN250 MG PO
[2018-03-24 20:09] LABS: BASOPHILS 0.4 % (0-2); EOSINOPHILS 8.6 % (0-7); HEMATOCRIT 32.9 % (36.0-48.0); HEMOGLOBIN 9.7 g/dL (12-16); IMMATURE GRANULOCYTES 0.2 % (0-5); LYMPHOCYTES 20.7 % (15-50); MCHC 29.5 g/dL (31.0-37.0); MCV 74.6 fL (80.0-100.0); MEAN PLATELET VOLUME 10.9 fL (7.4-10.4); MONOCYTES 6.5 % (2-11); NEUTROPHILS 63.6 % (40-80); PLATELET COUNT 457 10x3/uL (130-400); RBC 4.41 10x6/uL (4.00-5.40); RDW 17.2 % (11.5-14.5); WBC 8.4 10x3/uL (4.8-10.8)
[2018-03-24 20:17] LABS: CREATININE - SERUM 0.7 mg/dL (0.6-1.3)
== END | disposition home or self-care (01) ==
LOC: D.LABREF 19:25
PROVIDERS: Student in an Organized Health Care Education/Training Program
DX: J47.9 Bronchiectasis, uncomplicated (principal); J96.11 Chronic respiratory failure with hypoxia

== ENCOUNTER → 2018-03-27 09:37 | Outpatient (CLI) | payer MEDICARE ==
[2018-03-08 13:16] VITALS: BMI 19.2
[2018-03-27 19:26] LABS: APPEARANCE CLEAR (CLEAR); BILIRUBIN NEGATIVE (NEGATIVE); COLOR YELLOW (YELLOW); GLUCOSE NEGATIVE (NEGATIVE); KETONE NEGATIVE (NEGATIVE); NITRITE NEGATIVE (NEGATIVE); PROTEIN NEGATIVE (NEGATIVE); UROBILINOGEN NORMAL (NORMAL)
== END | disposition home or self-care (01) ==
LOC: D.RAD 09:37
PROVIDERS: Student in an Organized Health Care Education/Training Program
DX: R07.81 Pleurodynia (principal)

== ENCOUNTER → 2018-03-27 20:49 | Outpatient (CLI) | payer MEDICARE ==
[2018-03-08 13:16] VITALS: BMI 19.2
== END | disposition home or self-care (01) ==
LOC: D.LABREF 20:49
DX: R35.0 Frequency of micturition (principal)

== ENCOUNTER → 2018-03-31 10:41 | Outpatient (CLI) | payer MEDICARE ==
[2018-03-08 13:16] VITALS: BMI 19.2
[2018-03-31 11:19] LABS: BASOPHILS 0.2 % (0-2); EOSINOPHILS 5.7 % (0-7); HEMATOCRIT 32.6 % (36.0-48.0); HEMOGLOBIN 9.5 g/dL (12-16); LYMPHOCYTES 14.3 % (15-50); MCH 21.8 pg (26.0-34.0); MCHC 29.1 g/dL (31.0-37.0); MCV 74.9 fL (80.0-100.0); MEAN PLATELET VOLUME 11.2 fL (7.4-10.4); NEUTROPHILS 70.8 % (40-80); PLATELET COUNT 448 10x3/uL (130-400); RBC 4.35 10x6/uL (4.00-5.40); RDW 17.1 % (11.5-14.5); WBC 8.3 10x3/uL (4.8-10.8)
[2018-03-31 11:32] LABS: CREATININE - SERUM 0.8 mg/dL (0.6-1.3)
== END | disposition home or self-care (01) ==
LOC: D.LABREF 10:41
PROVIDERS: Student in an Organized Health Care Education/Training Program
DX: Z00.00 Encounter for general adult medical examination without abnormal findings (principal)

== ENCOUNTER → 2018-05-14 09:38 | Outpatient (CLI) | payer MEDICARE ==
[2018-03-08 13:16] VITALS: BMI 19.2
[2018-05-15 16:14] LABS: ACID FAST SMEAR Negative (()); AFB SPECIMEN PROCESSING Concentration (())
== END | disposition home or self-care (01) ==
LOC: D.LABREF 09:38
PROVIDERS: Student in an Organized Health Care Education/Training Program
DX: R05 Cough (principal)

== ENCOUNTER → 2018-05-26 09:06 | Outpatient (CLI) | payer MEDICARE ==
[2018-03-08 13:16] VITALS: BMI 19.2
--- NOTE | ~2018-05-26 | HEMODYNAMI ---
PATIENT:LIZ JOYCE MEDICAL RECORD: [id number] : 39 LOCATION:[facility] ADMISSION DATE: 05/26/18 Generatedon:05/26/201810:51 Patient name: LIZ JOYCE Patient #: [id number] SSN: DO B: 1935 Date of study: 05/26/2018 Page: Of Hemodynamic Procedure Report Patient Data Patient Demographics Procedure consent was obtained First Name: LIZ Gender: Female Last Name: MARIA DEL CARMEN : 1935 [facility] Initial: E Age: 83 year(s) Patient #: [id number] Race: Unknown Additional ID: [id number] Contact details Address: [address] [place] [address] State: [place] City: [facility] Zip code: [address] Past Medical History Allergies Allergen Reaction Date Comments Reported Morphine 02/12/2018 Codeine 02/12/2018 Morphine Other 05/26/2018 Admission Admission Data Admission Date: 05/26/2018 Admission Time: 9:06 Procedure Procedure Types Cath Procedure Peripheral Cath Diagnostic Procedure Gastric J- Tube Replacement/Exchange Procedure Description Procedure Date Procedure Date: 05/26/2018 Procedure Start Time: 10:26 Procedure Staff Name Function Charlie Rousseau MD Performing Physician Latrice Farr Monitor Rut Mena RN Nurse Yanni Sawyer RN Nurse Bhaskar Hoff RT Scrub Procedure Data Cath Procedure Fluoroscopy Diagnostic fluoroscopy Total fluoroscopy Time: 5.9 time: 5.9 min min Diagnostic fluoroscopy Total fluoroscopy dose: 30 dose: 30 mGy mGy Contrast Material Contrast Material Type Amount (ml) Isovue 300 45 Hemodynamics Rest Pre Cath Intra NCS Post Cath Procedure Log Time Note 9:59:11 Rut Mena RN sent for patient. Start room use. 9:59:15 Time tracking: Regular hours (M-F 7:00 - 5:00) 9:59:29 Plan of Care:Hemodynamics will remain stable., Cardiac rhythm will remain stable., Comfort level will be maintained., Respiratory function will remain adequate., Patient/ family verbilizes understanding of procedure., Procedure tolerated without complication., Recovers from procedure without complications.. 9:59:48 Patient received from Other to IR Alert and oriented. Tansferred to table in Supine position. 9:59:52 Warm blankets applied for patient comfort. 10:00:17 Use device set IR Diagnostic 10:00:22 Correct patient and procedure confirmed by team. 10:00:24 Sterile Angiographic Pack opened to sterile field. 10:00:37 Signed procedure consent form obtained from patient. 10:02:50 Full Disclosure recording started 10:03:00 Pre-procedure instructions explained to patient. 10:03:03 Pre-op teaching completed and patient verbalized understanding. 10:03:43 Family in waiting room. 10:04:20 Patient allergic to Morphine and codeine 10:04:57 Is the patient allergic to Iodine/contrast media? No. 10:05:48 No sedation will be used. 10:06:14 Left Abdomen was prepped with betadine and draped in sterile fashion. 10:06:16 Alarms reviewed 10:06:32 Sharps counted by scrub and verified . 10:06:50 - 10:07:21 Bag Decanter (2002S) opened to sterile field. 10:24:16 JEJUNAL 20Fr 45cm Tube (769058) opened to sterile field. 10:24:59 Physician arrived 10:25:00 --------ALL STOP TIME OUT------ 10:25:02 Final Timeout: patient, procedure, and site verified with staff and physician. All members of the team are in agreement. 10:25:21 Left abdomen site verified by team. 10:25:42 Sedation plan: None Medication:none 10:26:11 Procedure started. 10:28:15 ROADRUNNER FIRM 260CM glide wire ([id number]) opened to sterile field. 10:29:43 The roadrunner wire is advanced in the existing tube. 10:30:55 The old j tube is removed. 10:31:53 the New Jejunal feeding tube 20 fr is inserted over the wire and put in position. 10:33:36 A small amout of Omnipaque 300 is used for position check. 10:33:38 GLIDE CATHETER 5FR ANGLED 65cm (CG507) opened to sterile field. 10:34:17 The 5 fr glidecath is inserted into the J-tube. 10:36:07 Cook Feroz 1 7Fr Guide sheath opened to sterile field. 10:38:50 The glidecath is removed and a 7fr guide sheath is used for repositioning. 10:39:02 ROADRUNNER FIRM 260CM glide wire (Q07541) opened to sterile field. 10:41:44 GLIDE WIRE ANGLE 180cm ([id number]) opened to sterile field. 10:42:51 AMPLATZ Super stiff 180cm wire ([id number]) opened to sterile field. 10:43:34 the glidewire is used to try to reposition the J-tube. 10:44:17 The amplatz wire is use to gain further access for the J-tube. 10:44:58 Contrast is injected into the 20Fr Jejunal tube to confirm placement. 10:45:29 Procedure ended.(Physican Out) 10:46:29 Fluoroscopy time 05.90 minutes. 10:46:38 Fluoroscopy dose: 30 mGy 10:46:38 Flurop Dose total: 30 10:46:47 Contrast amount:Isovue 300 45ml. 10:46:50 Sharps counted by scrub and verified. 10:47:53 Post-op/insertion site Left Abdominal area dressed using a 4 x 4 and paper tape.. 10:48:38 Post procedure instruction explained to patient.Patient verbalizes understanding. 10:49:35 Procedure and supply charges have been captured, reviewed, submitted an d are correct. 10:50:19 See physician's report for complete and final results. 10:50:33 Patient transfered to Other with Wheelchair. Device Usage Item Name Manufacture Quantity Catalog Hospital Part Current Minimal Lot# / Number Charge Number Stock Stock Serial# Code Bag Decanter Microtek 1 [id number] 12124 [id number] 5 () Medical Inc. Sterile Cardinal [address] 910010 720833 5 Angiographic Health Pack JEJUNAL 18Fr Halyard 1 025 430339 630527 654481 5 45cm Tube [employer] (477831) [facility] Cook Medical 2 Q46181 198560 009840 5 [id number] FIRM 260CM [id number] glide wire (G57903) GLIDE Terumo 1 CG507 699106 507408 5 CATHETER 5FR ANGLED 65cm (CG507) Cook Feroz 1 Cook Medical 1 [id number] 976161 322422 5 [id number] 7Fr Guide sheath GLIDE WIRE Terumo 1 CR9388 204238 897399 924141 5 ANGLE 180cm (JD2144) AMPLATZ [place] 1 [id number] 402552 283990 037856 5 [id number] Super stiff Scientific 180cm wire ([id number]) Signature Audit [place] Stage Time Signature Unsigned Intra-Procedure 05/26/2018 Latrice 10:51:05 AM Yordan Signatures Monitor : Latrice Signature : Yordan Date : Time : [facility] [address] [facility] [place] [address]
== END | disposition home or self-care (01) ==
LOC: D.RAD 05-25 14:00 → D.SP 09:06 → D.RAD 10:00
DX: K94.13 Enterostomy malfunction (principal); Z01.812 Encounter for preprocedural laboratory examination

== ENCOUNTER → 2018-06-16 08:36 | Outpatient (CLI) | payer MEDICARE ==
[2018-03-08 13:16] VITALS: BMI 19.2
== END | disposition home or self-care (01) ==
LOC: D.RAD 08:36
DX: J47.9 Bronchiectasis, uncomplicated (principal)

== ENCOUNTER → 2018-07-14 14:29 | Outpatient (CLI) | payer MEDICARE ==
[2018-03-08 13:16] VITALS: BMI 19.2
[~2018-07-14 14:29] MED LIST changes: +PHENERGAN12.5 MG RC
== END | disposition home or self-care (01) ==
LOC: D.LABREF 14:29
DX: R05 Cough (principal)

== ENCOUNTER 2018-07-16 10:04 | Inpatient (IN) | payer MEDICARE ==
[2018-07-16] VITALS (9 sets, daily range): BP systolic 106–167; BP diastolic 55–89; BMI 19.6
[~2018-07-16] VITALS: Ht 175.3 cm; Wt 60.3 kg
--- NOTE | ~2018-07-16 | HEMODYNAMI ---
PATIENT:LIZ JOYCE MEDICAL RECORD: [id number] : 39 LOCATION:D.MS [id number] ADMISSION DATE: 07/16/18 Generatedon:07/23/201811:01 Patient name: LIZ JOYCE Patient #: [id number] SSN: DO B: 1935 Date of study: 07/23/2018 Page: Of Hemodynamic Procedure Report Patient Data Patient Demographics Procedure consent was obtained First Name: LIZ Gender: Female Last Name: MARIA DEL CARMEN : 1935 Middle Initial: E Age: 83 year(s) Patient #: [id number] Race: Unknown Additional ID: [id number] Contact details Address: [address] [place] [address] State: [place] City: [facility] Zip code: [address] Past Medical History Allergies Allergen Reaction Date Comments Reported Morphine 02/12/2018 Codeine 02/12/2018 Morphine Other 05/26/2018 Other 07/23/2018 MORPHINE,CODIENE,TESSALON allergy STEIN Admission Admission Data Admission Date: 07/16/2018 Admission Time: 11:42 Room #: D.2204 Procedure Procedure Types Cath Procedure Peripheral Cath Diagnostic Procedure Miscellaneous Procedure Description Procedure Date Procedure Date: 07/23/2018 Procedure Start Time: 10:41 Procedure Staff Name Function Jaguar Finnegan MD Performing Physician Bhaskar Hoff RT Monitor Latrice Sawyer RN Nurse Procedure Data Cath Procedure Fluoroscopy Diagnostic fluoroscopy Total fluoroscopy Time: 1.5 time: 1.5 min min Diagnostic fluoroscopy Total fluoroscopy dose: 31 dose: 31 mGy mGy Contrast Material Contrast Material Type Amount (ml) Isovue 300 25 Hemodynamics Rest Pre Cath Intra NCS Post Cath Procedure Log Time Note 10:17:30 Bhaskar Hoff RT (R) (CV) sent for patient. Start room use. 10:17:35 Time tracking: Regular hours (M-F 7:00 - 5:00) 10:17:41 Plan of Care:Hemodynamics will remain stable., Cardiac rhythm will remain stable., Comfort level will be maintained., Respiratory function will remain adequate., Patient/ family verbilizes understanding of procedure., Procedure tolerated without complication., Recovers from procedure without complications.. 10:17:47 Patient received from Med/Surg to IR Alert and oriented. Tansferred to table in Supine position. 10:17:52 Use device set IR Diagnostic 10:17:54 Sterile Angiographic Pack opened to sterile field. 10:17:54 Bag Decanter (2002S) opened to sterile field. 10:18:04 Signed procedure consent form obtained from patient. 10:18:06 Full Disclosure recording started 10:18:07 Pre-procedure instructions explained to patient. 10:18:07 Pre-op teaching completed and patient verbalized understanding. 10:18:09 Family in waiting room. 10:18:11 Patient NPO since Midnight. 10:18:54 Patient allergic to Other allergyMORPHINE,SARBJIT CELAYA 10:18:59 Is patient on blood thinner?No 10:19:11 Left Abdomen was prepped with betadine and draped in sterile fashion. 10:30:39 Alarms reviewed by R. N. 10:30:40 Sharps counted by scrub and verified by R.N. 10:41:05 Physician arrived 10:41:06 --------ALL STOP TIME OUT------ 10:41:07 Final Timeout: patient, procedure, and site verified with staff and physician. All members of the team are in agreement. 10:41:11 Left abdomen site verified by team. 10:41:17 Fire Safety Assessment: A--An alcohol-based skin anteseptic being used preoperatively., C--Open oxygen or nitrous oxide is being used. 10:41:24 Sedation plan: None Medication:Lidocaine 10:41:42 Procedure started. 10:42:40 JEJUNAL 20Fr Tube ([id number]) opened to sterile field. 10:42:40 GLIDE WIRE ANGLE 180cm ([id number]) opened to sterile field. 10:48:34 GLIDE WIRE Angled Super Stiff 180cm ([id number]) opened to sterile field. 10:52:35 Procedure ended.(Physican Out) 10:52:47 Fluoroscopy time 01.50 minutes. 11:00:57 Flurop Dose total: 31 11:00:57 Fluoroscopy dose: 31 mGy 11:01:02 Contrast amount:Isovue 300 25ml. 11:01:05 Insertion/operative site no bleeding no hematoma. 11:01:20 Post procedure instruction explained to patient.Patient verbalizes understanding. 11:01:24 Report given to Med/Surg. 11:01:28 Patient transfered to Med/Surg with Bed. Device Usage Item Name Manufacture Quantity Catalog Hospital Part Current Minimal Lot# / Number Charge Number Stock Stock Serial# Code Sterile Cardinal 1 [id number] 5 Angiographic Health Pack Bag Decanter Microtek 1 [id number] 5 () [employer] JEJUNAL 22Fr [place] 1 0- [id number] [id number] 709102 5 45cm Tube Vaimicom ([id number]) GLIDE WIRE Terumo 1 [id number] [id number] 061027 5 ANGLE 180cm ([id number]) GLIDE WIRE Terumo 1 [id number] 191420 5 Angled Super Stiff 180cm ([id number]) Signature Audit [place] Stage Time Signature Unsigned Intra-Procedure 07/23/2018 Bhaskar 11:01:50 AM Luis Eduardo RT (R) (CV) Signatures Monitor : Bhaskar Signature : Luis Eduardo RT Date : Time : [place] [address]
[~2018-07-16 10:04] MED LIST changes: -PHENERGAN12.5 MG RC
[2018-07-16 11:01] LABS: HEMATOCRIT 35.5 % (36.0-48.0); HEMOGLOBIN 10.4 g/dL (12-16); LYMPHOCYTES 9.4 % (15-50); MCH 21.4 pg (26.0-34.0); MCHC 29.3 g/dL (31.0-37.0); MCV 72.9 fL (80.0-100.0); MEAN PLATELET VOLUME 10.4 fL (7.4-10.4); NEUTROPHILS 83.4 % (40-80); PLATELET COUNT 481 10x3/uL (130-400); RBC 4.87 10x6/uL (4.00-5.40); RDW 15.7 % (11.5-14.5); WBC 13.5 10x3/uL (4.8-10.8)
[2018-07-16 11:09] LABS: APTT 27.6 SECONDS (22.8-39.4); INR 1.08 (0.85-1.17); PROTIME 13.5 SECONDS (11.6-15.0)
[2018-07-16 11:28] LABS: ALKALINE PHOSPHATASE 136 U/L (46-116); ALT (SGPT) 28 U/L (10-68); BILIRUBIN - TOTAL 0.28 mg/dL (0.2-1.3); CALC OSMOLALITY 277 mosm/kg (275-300); CALCIUM 8.7 mg/dL (8.5-10.1); CARBON DIOXIDE 25.4 mmol/L (21.0-32.0); CHLORIDE - SERUM 99 mmol/L (98-107); CKMB 0.3 U/L (0.0-3.6); CREATINE KINASE 86 UL (21-215); CREATININE - SERUM 0.9 mg/dL (0.6-1.3); GLUCOSE 132 mg/dL (74-106); PROTEIN - SERUM 7.7 g/dL (6.4-8.2); SODIUM 136 mmol/L (136-145); TROPONIN-I < 0.017 ng/mL (0.000-0.060); UREA NITROGEN 24 mg/dL (7-18); eGFR NON AFRICAN AMERICAN 64 mL/min (90-120)
[2018-07-16 11:29] LABS: POTASSIUM - SERUM 4.5 mmol/L (3.5-5.1)
--- NOTE | 2018-07-16 13:10 | NUR ---
ZITHROMAX INFUSION COMPLETE AT 1310.
--- NOTE | 2018-07-16 13:43 | MORECARE ---
CASE MANAGEMENT DISCHARGE SUMMARY PATIENT: LIZ JOYCE UNIT: [id number] ADM DATE: 07/16/18 AGE: 83 : 37 SEX: F ROOM/BED: D.2204 AUTHOR: LETICIA ALONSO PHYSICIAN: REFERRING PHYSICIAN: MARIAMA BLACKWELL MD DATE OF SERVICE: 07/16/18 Discharge Plan Patient Name: LIZ JOYCE Facility: [facility]:[place] : 1935 Planned Disposition: Home with Home Health Anticipated Discharge Date: 07/21/18 Discharge Date: Expected LOS: 5 Initial Reviewer: [email or web address] Initial Review Date: 07/16/2018 Generated: 07/16/18 2:43 pm Patient Name: LIZ JOYCE Page 37313 at 1343 All edits/amendments must be made on the electronic document DICTATION DATE: 07/16/18 1343 APPLIANCE SALES ASSOCIATE: STEPHEN 07/16/18 1343 RPT#: [id number] DC DATE: STATUS: ADM IN [facility] [address] [place] [address] END OF REPORT
--- NOTE | 2018-07-16 14:07 | MORECARE ---
CASE MANAGEMENT DISCHARGE SUMMARY PATIENT: LIZ JOYCE UNIT: [id number] ADM DATE: 07/16/18 AGE: 83 : 37 SEX: F ROOM/BED: D.2204 AUTHOR: LETICIA ALONSO PHYSICIAN: REFERRING PHYSICIAN: MARIAMA BLACKWELL MD DATE OF SERVICE: 07/16/18 Discharge Plan Patient Name: LIZ JOYCE Facility: [facility]:[place] : 1935 Planned Disposition: Home with Home Health Anticipated Discharge Date: 07/21/18 Discharge Date: Expected LOS: 5 Initial Reviewer: [email or web address] Initial Review Date: 07/16/2018 Generated: 07/16/18 3:07 pm DCP- Discharge Planning Updated by [email or web address]: Carmen Head on 07/16/18 1:[address] Patient Name: LIZ JOYCE Admission Status: ER Accout number: [id number] Admission Date: 07-16-2018 : 1935 Admission Diagnosis: Attending: MARIAMA BLACKWELL Current LOS: 1 Anticipated DC Date: 07-21-2018 Planned Disposition: Home with Home Health Primary Insurance: [facility] [employer] Discharge Planning Comments: CM met with patient her son and daughter to complete initial dc planning assessment. CM educated patient on the CM role and verbal consent given by patient to complete assessment. Patient lives at home alone next to her daughter. She reports she requires assistance with bathing, transportation, and her medications. At discharge patient plans to return home with resumption of [facility]. SELAM form explained to the patient and she signed for Giulia to resume her care at home. She and her family feel this is a safe dc plan for the patient. Patient denied further known discharge needs at this time. CM will continue to follow and will assist as needed with dc plans/needs. Cementer Hand: Carmen Head RN, CCM Appended by Carmen Head on 07/16/2018 14:06 FLEXIBLE SHAFT WINDER: Patient also has a type of lifeline that when she pushes her necklace button it calls her sons cell phone first, then his daughters second if her son does not answer. DCPIA - Discharge Planning Initial Assessment Updated by [email or web address]: Carmen Head on 07/16/18 2:02 pm * Is the patient Alert and Oriented? Yes * How many steps to enter\exit or inside your home? none * PCP Dr. العلي * Pharmacy [facility] * Preadmission Environment Home Alone * ADLs Partial Dependent * Partial ADLs (Assistance needed) Bathing Medication Management * Equipment Nebulizer Oxygen Rolling Walker Wheelchair * Other Equipment [facility] is O2 provider * List name and contact numbers for known caregivers / representatives who currently or will assist patient after discharge: Daisy Solis - marc - [phone] Kenney gomez POA - [phone] * Verbal permission to speak to the caregivers and representatives has been obtained from the patient. Yes * Community resources currently utilized Home Health * Please name any agencies selected above. [facility] * Additional services required to return to the preadmission environment? No * Can the patient safely return to the preadmission environment? Yes * Has this patient been hospitalized within the prior 30 days at any hospital? No Last DP export: 07/16/18 12:43 pm Patient Name: LIZ JOYCE Page 95214 at 1407 All edits/amendments must be made on the electronic document DICTATION DATE: 07/16/181406 PRINTING MANAGER: STEPHEN 07/16/181406 RPT#: [id number] DC DATE: STATUS: ADM IN [facility] [address] [place] [address] END OF REPORT
[2018-07-16 14:38] LABS: APPEARANCE CLEAR (CLEAR); BILIRUBIN NEGATIVE (NEGATIVE); COLOR YELLOW (YELLOW); GLUCOSE NEGATIVE (NEGATIVE); KETONE NEGATIVE (NEGATIVE); NITRITE NEGATIVE (NEGATIVE); PROTEIN NEGATIVE (NEGATIVE); SPECIFIC GRAVITY 1.015 (1.005-1.020); UROBILINOGEN NORMAL (NORMAL)
[2018-07-17 03:38] VITALS: BP 153/66
[2018-07-17 06:15] LABS: BASOPHILS 0.2 % (0-2); EOSINOPHILS 1.6 % (0-7); HEMATOCRIT 29.9 % (36.0-48.0); HEMOGLOBIN 8.8 g/dL (12-16); IMMATURE GRANULOCYTES 0.1 % (0-5); MCH 21.6 pg (26.0-34.0); MCHC 29.4 g/dL (31.0-37.0); MCV 73.3 fL (80.0-100.0); MEAN PLATELET VOLUME 10.9 fL (7.4-10.4); MONOCYTES 8.1 % (2-11); PLATELET COUNT 443 10x3/uL (130-400); RBC 4.08 10x6/uL (4.00-5.40); RDW 16.5 % (11.5-14.5)
[2018-07-17 06:22] LABS: WBC 8.4 10x3/uL (4.8-10.8)
[2018-07-17 06:34] LABS: CALC OSMOLALITY 276 mosm/kg (275-300); CALCIUM 8.1 mg/dL (8.5-10.1); CARBON DIOXIDE 22.7 mmol/L (21.0-32.0); CHLORIDE - SERUM 102 mmol/L (98-107); CREATININE - SERUM 0.7 mg/dL (0.6-1.3); GLUCOSE 154 mg/dL (74-106); POTASSIUM - SERUM 4.4 mmol/L (3.5-5.1); SODIUM 136 mmol/L (136-145); eGFR NON AFRICAN AMERICAN 85 mL/min (90-120)
[2018-07-17 06:35] LABS: UREA NITROGEN 17 mg/dL (7-18)
--- NOTE | 2018-07-17 07:39 | HP ---
PATIENT: LIZ JOYCE MEDICAL RECORD: [id number] ACCOUNT: [id number] LOCATION:D.MS [id number] : 39 ADMISSION DATE: 07/16/18 PCP: SAMMY ZAMUDIO HISTORY AND PHYSICAL EXAMINATION REASON FOR ADMISSION: Vomiting, cough, and fevers. HISTORY OF PRESENT ILLNESS: The patient is an elderly female with history of chronic bronchiectasis followed in the pulmonary clinic. She had felt bad over the weekend with some nausea and increasing cough and sputum production and jacquelyn blood-tinged sputum. She was seen in the office by nurse practitioner, 3 days prior to admission, was given Rocephin injection, placed on oral antibiotics. She developed more nausea and vomiting in the last 24 hours and more shortness of breath and came into the Emergency Room for this reason. In the ED, she was evaluated and found to have an early right middle lobe infiltrate superimposed on her chronic bronchiectasis findings. She is now being admitted for possible sepsis as her lactic acid was elevated. PAST MEDICAL HISTORY: Chronic bronchiectasis with mucoid PSA times 2 in the past; asthma-COPD overlap syndrome; chronic cough; persistent nausea; GERD; pulmonary nodules; history of aspiration of food; J-PEG feedings with Osmolite; atrial fibrillation; history of CVA with unremarkable CT of the brain in January 2018; essential hypertension; hypothyroidism; anemia; disability due to chronic illness; chronic hypoxic respiratory failure, wears a vest; history of MTB; hypothyroidism; history of cardiac arrhythmia. PAST SURGICAL HISTORY: Cataract surgery, OU; appendectomy; cholecystectomy; hysterectomy; lumbar discectomy times 3, benign tumor removed from her neck in the past, history of PEG tube placement. ALLERGIES: ALLERGIC TO SULFA, PENICILLIN, DILTIAZEM. MEDICATIONS: Mirapex 0.125 mg at bedtime, MiraLax 17 grams p.o. daily, pantoprazole 40 mg b.i.d., Zofran as directed, montelukast 10 mg at bedtime, midodrine 5 mg p.o. t.i.d., metoprolol tartrate 12.5 mg p.o. daily, levothyroxine 0.112 mg p.o. q.a.m. a.c., levalbuterol 0.63 mg per updraft q.i.d., Lactobacillus acidophilus 1 tab p.o. daily, guaifenesin 1200 mg p.o. b.i.d., acetylcysteine 300 mg p.o. q.12 hours, Xanax 0.25 mg p.o. t.i.d., amlodipine 5 mg p.o. b.i.d., arformoterol tartrate 15 mcg p.o. b.i.d., budesonide 0.5 mg b.i.d., vitamin D 50,000 units on Friday to Friday, famotidine 40 mg at bedtime. FAMILY HISTORY: Noncontributory. REVIEW OF SYSTEMS: GENERAL: Chronically ill, acute fatigue. No recent fever. HEENT: No recent visual change, sinus congestion, or sore throat. RESPIRATORY: Chronic cough, productive with green blood stained sputum, mildly tachypneic. Denies chest pain. CARDIAC: No palpitations or edema. GASTROINTESTINAL: Chronic nausea with recent vomiting and intermittent loose stools. No hematemesis or hematochezia. GYNECOLOGIC: No vaginal bleeding. GENITOURINARY: Denies dysuria. MUSCULOSKELETAL: Has arthralgias in her lumbar spine without sciatica. HISTORY AND PHYSICAL [id number] LIZ JOYCE INTEGUMENT: No recent rash or itching. PSYCHIATRIC: Denies depressed mood. PHYSICAL EXAMINATION: GENERAL: The patient is alert, oriented, and chronically ill-appearing, but in no acute distress except for mild respiratory tachypnea. VITAL SIGNS: Heart rate of 113 and regular, blood pressure was 90/60, temperature 99 degrees Fahrenheit orally. HEENT: Normocephalic. Eyes are clear with cataract lens implants noted. Sclerae are nonicteric. Oropharynx dry mucous membranes. NECK: No bruits or JVD. CHEST: She has mild respiratory use accessory muscles. She has crackles bibasilar. HEART: Tachycardic without murmur or gallop. ABDOMEN: Soft, nontender, no organomegaly. J PEG noted. EXTREMITIES: No gross edema. NEUROLOGICAL: The patient is alert and oriented to person, place, and time. Cranial nerves are grossly intact. Gait was not tested. INTEGUMENT: No skin lesions appreciated. DIAGNOSTIC DATA AND LABORATORY DATA: Chest x-ray shows chronic COPD changes with right middle lobe hazy opacity suggesting pneumonia. Labs shows a white count of 13.5 thousand, H&H of 10.4 and 35.5 with left shift. BMP shows a BUN of 24, creatinine of 0.9, glucose of 132. Lactic acid is high at 2.2. Liver functions are normal. INR is normal. Urine is pending. Blood gas; pH 7.459, pCO2 of 26, pO2 of 69 on 3 liters. IMAGING: Chest x-ray shows worsening patchy airspace disease in the medial right lung base. ASSESSMENT: Community-acquired pneumonia, history of PSA culture times 2, bronchiectasis, [id number] respiratory failure, history of asthma-COPD overlap syndrome, GERD, history of pulmonary nodules, history of atrial fibrillation, remote CVA, hypertension, hypothyroidism. PLAN: The patient will be admitted for pulmonary toilet, broad-spectrum IV antibiotics including Maxipime. Pulmonary consult. TRANSINT:[id number] Voice Confirmation ID: [id number] DOCUMENT ID: [id number] MARIAMA BLACKWELL MD at 0739 CC: [id number] DICTATION DATE: 07/16/18 1407 FLOWER STRIPPER: 07/16/18 1543 ADM IN [facility] [address] [place] [address]
--- NOTE | 2018-07-17 07:58 | NUR ---
AWAKE AND ALERT. ORIENTED X3. NO C/O AT THIS TIME. SL TO RIGHT HAND D/C PER PATIENT REQUEST WITH CATHETER INTACT. LUNGS HAVE WHEEZES THROUGHOUT LUNG CALDERA. PRODUCTIVE COUGH NOTED. SKIN IS INTACT WITHOUT REDNESS. RIGHT PORT PATENT WITHOUT REDNESS AT INSERTION SITE. DENIES NEEDS.
[2018-07-17 08:34] VITALS: BP 154/69; BP 81/54
--- NOTE | 2018-07-17 10:00 | NUR ---
DRESSING CHANGED AROUND J TUBE. SKIN IS EXTREMELY EXCORIATED. SPOKE WITH WOUND CARE NURSE. ZINC ORDERED FOR AREA. WILL MONITOR.
[2018-07-17 11:40] VITALS: BP 144/67
[2018-07-17 11:53] VITALS: BMI 19.6
[2018-07-17 16:00] VITALS: BP 139/65
[2018-07-17 16:13] VITALS: Ht 175.3 cm; Wt 60.3 kg
--- NOTE | 2018-07-17 18:21 | NUR ---
REFUSED SUPPER TRAY. C/O NAUSEA. GIVEN 8MG ZOFRAN PO FOR SAME. WILL MONITOR. DRESSING TO J TUBE SITE CHANGED AGAIN. SKIN CLEANED WITH WOUND CLEANSER, PAT DRY AND DESITIN OINTMENT APPLIED TO AREA. WILL CONTINUE TO MONITOR. NO CHANGES NOTED.
--- NOTE | 2018-07-17 19:30 | NUR ---
BED LOW SRX2 AND CALL LIGHT IS IN REACH..ALERT AND ORIENTED O2 IS IN PLACE AT 2L/NC NS TO RT PORT..TELEMETRY SHOWING 110 AREA OF j TUBE NOT OBSERVED AT THIS TIME
[2018-07-17 19:34] VITALS: BP 167/77
--- NOTE | 2018-07-17 22:20 | NUR ---
A LITTLE RESTLESS WITH RESP AT 28 XANAX GIVEN AT THIS TIME. SKIN WARM AND DRY DENIES CP SR X2 AND BED IS LOW CALL LIGHT IS IN REACH FEEDING CONTINUES AT THIS TIME PLACEMENT WAS CHECKED BEFORE STARTING
[2018-07-17 23:35] VITALS: BP 132/58
--- NOTE | 2018-07-17 23:50 | NUR ---
THE PATIENT APPEARS TO BE SLEEPING. KANGAROO PUMP, IVS, AND O2 ALL RUNNING WELL. THE PATIENT APPEARS COMFORTABLE.
--- NOTE | 2018-07-18 03:05 | NUR ---
BED LOW SRX2 AND CALL LIGHT IN REACH...LCTA...FEEDING CONTINUES WITH NO ABD DISCOMFORT
--- NOTE | 2018-07-18 03:35 | NUR ---
FEEDING IS LEAKING OUT AROUND J TUBE INSERTION SITE ...FEEDING STOPPED AND DRSG CHANGED
[2018-07-18 04:00] VITALS: BP 140/55
[2018-07-18 08:39] VITALS: BP 129/54
[2018-07-18 12:00] VITALS: BP 137/59
--- NOTE | 2018-07-18 12:33 | NUR ---
ALERT AND ORIENTED J-TUBE INTACT. RT. MEDIPORT WITH IVF INFUSING AT RPESRIBED RATE. LUNGS DIMINISHED X 4 ANTERIOR. TEMETRY NTACT. ENCOURAGED TO USE CALL LIGHT FOR ASSIST AND VERBALIZED UNDERSTANDING.
[2018-07-18 16:00] VITALS: BP 143/66
--- NOTE | 2018-07-18 19:50 | NUR ---
LYING IN BED READING A BOOK. ALERT AND ORIETNED X4. RESP IRREG, NONLBORED. O2 @ 2L/NC. TELEMETRY SHOWS SR WITH RATE OF 92. JTUBE IS CLAMPED. MEDIPORT TO RT CW IS SALINE LOCKED. PROD COUGH NOTED WITH YELLOW SPUTUM. DENIES PAIN. EXCORIATION NOTED AROUND JTUBE SITE. AMB WITH ASSIST X1. SR ELEVATED X2. CL IN REACH.
[2018-07-18 20:00] VITALS: BP 156/64
--- NOTE | 2018-07-18 20:30 | NUR ---
JTUBE FEEDING STARTED AT THIS TIME. FLUSHED WITHOUT DIFF. INFUSING @ 90 ML/HR. HOB ELEVATED AT 30 DEGREES. CL IN REACH.
--- NOTE | 2018-07-18 21:52 | NUR ---
STATES SHE CANT BREATHE BUT ARGUING WITH RT ABOUT UD. STATES IT DOESNT WORK AND WANTING A MDI. ALSO REQUESTING PAIN MED AND ANXIETY MED. SAO2 96%.
[2018-07-19] VITALS: BP 120/49
[2018-07-19 04:00] VITALS: BP 145/55
[2018-07-19 05:11] LABS: BASOPHILS 0.3 % (0-2); HEMATOCRIT 30.1 % (36.0-48.0); HEMOGLOBIN 8.8 g/dL (12-16); IMMATURE GRANULOCYTES 0.1 % (0-5); LYMPHOCYTES 15.3 % (15-50); MCH 21.4 pg (26.0-34.0); MCHC 29.2 g/dL (31.0-37.0); MCV 73.1 fL (80.0-100.0); MEAN PLATELET VOLUME 10.7 fL (7.4-10.4); MONOCYTES 13.3 % (2-11); PLATELET COUNT 447 10x3/uL (130-400); RBC 4.12 10x6/uL (4.00-5.40); RDW 16.6 % (11.5-14.5); WBC 6.9 10x3/uL (4.8-10.8)
--- NOTE | 2018-07-19 07:30 | NUR ---
REC'D SITTING UP IN BED AWAKE AND ALERT. RESP EVEN AND UNLABORED WITH NO DISTRESS NOTED OR VOICED. CAN EXPRESS NEEDS AND WANTS WITH NONE NOTED OR VOICED. ASSESSMENT COMPLETD. C/L IN REACH AT BEDSIDE.
[2018-07-19 07:55] VITALS: BP 147/60
--- NOTE | 2018-07-19 08:36 | NUR ---
PATIENT RESTING IN BED WITH NO NEEDS VOICED, CL IN REACH
--- NOTE | 2018-07-19 09:57 | NUR ---
DRESSING CHANGES TO GTUBE SITE AT THIS TIME WITH CREAM APPLIED. FAMILY AT BEDSIDE. C/L IN REACH AT BEDSIDE.
[2018-07-19 13:00] VITALS: BP 141/65
[2018-07-19 16:00] VITALS: BP 136/60
--- NOTE | 2018-07-19 19:40 | NUR ---
SITTING UP IN BED WATCHING TV. ALERT AND ORIENTED X4. RESP IRREG. SOB NOTED. O2 @ 2L/NC. PROD COUGH WITH YELLOW SPUTUM NOTED. BBS CTA BUT DIMINISHED IN BLL. TRACE EDEMA NOTED TO RLE. HOB ELEVATED 30 DEGREES. JTUBE TO ABD IS CLAMPED. REDNESS AND EXCORIATION NOTED AROUND JTUBE SITE. DENIES PAIN. RT CW MEDIPORT IS SALINE LOCKED. GEN WEAKNESS NOTED. SR ELEVATED X2. CL IN REACH. NO DISTRESS.
[2018-07-19 20:00] VITALS: BP 132/62
[2018-07-20 04:00] VITALS: BP 140/70
[2018-07-20 08:04] VITALS: BP 160/70
--- NOTE | 2018-07-20 08:24 | NUR ---
AWAKE AND ALERT. ORIENTED X3. NO C/O AT THIS TIME. LUNGS ARE DIMINISHED THROUGHOUT, NON PRODUCTIVE COUGH OCCASSIOANLLY. SKIN IS INTACT WITHOUT REDNESS EXCEPT AROUND J TUBE SITE. PATIENT REPORTS THIS SEEMS IMPROVED FROM LAST WEEK, LESS RED AND LESS PAINFULL. TF OFF AT THIS TIME. DENIES NEEDS. FAMILY AT BEDSIDE.
--- NOTE | 2018-07-20 10:07 | NUR ---
ABLE TO EAT SOME OF BREAKFAST. NO C/O NAUSEA AT THIS TIME.
--- NOTE | 2018-07-20 11:04 | NUR ---
NUTRITION F/U CHART REVIEWED, PT VISIT. PT REPORTS TOLERATING NOCTURNAL TUBE FEEDS, DIET. NO COMPLAINTS. WILL CONTINUE TO PROVIDE OSMOLITE 1.[address] FOLLOWING
--- NOTE | 2018-07-20 11:45 | NUR ---
DRESSING CHANGED TO JTUBE SITE. REDNESS IS ALMOST COMPLETLY GONE TODAY. DENIES NEEDS.
[2018-07-20 11:55] VITALS: BP 131/60
[2018-07-20 15:45] VITALS: BP 134/61
--- NOTE | 2018-07-20 16:18 | NUR ---
pt placed in contact isolation for urine culture positive for vre. pt aware and understands. signs and magnetics placed on door.
--- NOTE | 2018-07-20 19:25 | NUR ---
ATE ONLY A FEW BITES OF SUPPER. SOME NAUSEA REPORTED. DENIES NEEDS. HAD MODERATE BM, VERY DARK. DENIES NEEDS. NO CHANGES NOTED.
--- NOTE | 2018-07-20 19:45 | NUR ---
PT SITTING UP IN BED, NO SIGNS OF DISTRESS. ALERT AND ORIENTED. O2 2L/NC. CONTACT ISOLATION IN PLACE. RIGHT PORT SL, DRESSING CDI. ASSISTED PT UP TO BEDSIDE COMMODE TO VOID AND BACK. LUNG SOUNDS DIMINISHED UPON AUSCULTATION. JTUBE DRESSING CDI. NO OTHER NEEDS OR COMPLAINTS AT THIS TIME. CL IN REACH, WILL CONTINUE TO MONITOR
[2018-07-20 20:00] VITALS: BP 128/53
--- NOTE | 2018-07-20 20:45 | NUR ---
TUBE FEED STARTED AT THIS TIME. NO RESIDUAL, FLUSHES WELL. OSMOLITE 1.5 @ 90ML/HR. HOB ELEVATED 30 DEGREES. NO NEEDS AT THIS TIME. CL IN REACH
--- NOTE | 2018-07-20 22:30 | NUR ---
PT GIVEN XANAX FOR ANXIETY. WILL CONTINUE TO MONITOR
[2018-07-21 04:00] VITALS: BP 136/60
--- NOTE | 2018-07-21 07:15 | NUR ---
J TUBE IS PLUGGED AT THIS TIME. COKE INSTILLED WILL CLEAR AFTER A BIT. REQUESTED AND GIVNE 50MG ULTRAM PO FOR C/O PAIN AROUND J TUBE SITE. WILL MONITOR.
--- NOTE | 2018-07-21 08:15 | NUR ---
AWAKE AND ALERT ORIENTED X3. REPORTS SOME RELIEF WITH ULTRAM. LUNGS ARE DIMINISHED THROUGHOUT LUNG CALDERA BUT CLEAR. SKIN IS INTACT WITHOUT REDNESS EXCEPT AROUND J TUBE SITE THERE IS STILL SOME SLIGHT EXCORIATION NOTED. J TUBE IS PATENT AT THIS TIME. RIGHT PORT IS PATENT WITHOUT REDNESS AT INSERTION SITE. DENIES NEEDS.
[2018-07-21 09:15] VITALS: BP 144/57
--- NOTE | 2018-07-21 10:00 | NUR ---
RESTING QUIETLY IN BED. DENIES NEEDS. VISITORS AT BEDSIDE.
--- NOTE | 2018-07-21 13:30 | NUR ---
ATE A FEW BITES OF LUNCH. C/O NAUSEA WITH FOOD. DRESSING TO J TUBE SITE CHANGED. SKIN IS EXCORIATED AROUND SITE TODAY. WILL MONITOR.
[2018-07-21 13:37] VITALS: BP 149/59
--- NOTE | 2018-07-21 18:00 | NUR ---
REPORTS FEELING "FUNNY". BP TAKEN MANUALLLY 140/70. O2 SAT 97%. SKIN AND COLOR WNL. PUPILS EQUAL AND REACTIVE. TELELMETRY SHOWS SR 100. WILL MONITOR.
[2018-07-21 20:00] VITALS: BP 136/63
--- NOTE | 2018-07-21 20:00 | NUR ---
PT SITTING UP IN BED, NO SIGNS OF DISTRESS. RIGHT CHEST PORT SL, DRESSING CDI. O2 2L/NC. PT IS ALERT AND ORIENTED. JTUBE NOTED TO LEFT ABD. DRESSING CDI. PT STATES NO NEEDS OR COMPLAINTS AT THIS TIME. CL IN REACH, WILL CONTINUE TO MONITOR
--- NOTE | 2018-07-21 20:40 | NUR ---
JTUBE FEEDING STARTED AT THIS TIME. OSMOLITE 1.5 @ 90ML/HR. TUBE FLUSHES WELL. HOB ELEVATED 30 DEGREES. DENIES NEEDS. CL IN REACH
--- NOTE | 2018-07-22 01:00 | NUR ---
CALLED TO ROOM BY PT D/T GREEN DRAINAGE AROUND JTUBE SITE. STOPPED FEED. NO RESIDUAL, FLUSHED WELL. CLEANED JTUBE SITE, APPLIED DESITIN AND CHANGED DRESSING. RESTARTED FEED. NO OTHER NEEDS AT THIS TIME. CL IN REACH
[2018-07-22 04:00] VITALS: BP 122/62
--- NOTE | 2018-07-22 07:58 | NUR ---
PT RESTING IN BED. NO SIGNS OF DISTRESS. IV TO RIGHT CHEST PORT PATENT NO REDNESS OR TENDERNESS. ON 2L NC. ON TELEMETRY 93 NORMAL SINUS. HAS J TUBE PATENT. DRESSING CHANGED. COMPLAINS OF PAIN. MEDS GIVEN. DENIES ANY OTHER NEED AT THIS TIME. CALL LIGHT IN REACH. BED LOW POSITION. NO FAMILY AT BEDSID AT THIS TIME.
[2018-07-22 10:25] VITALS: BP 165/67
[2018-07-22 16:40] VITALS: BP 137/59
--- NOTE | 2018-07-22 19:15 | NUR ---
UNABLE TO UTILIZE THE OSCILLATING VEST DUE TO LEAKING COLOSTOMY BAG
[2018-07-22 21:07] VITALS: BP 151/67
--- NOTE | 2018-07-22 21:33 | NUR ---
RESTING IN BED NO S/S OF DISTRESS RESP. CHA AND UNLABORED CALL LIGHT IN REACH
[2018-07-23 04:39] VITALS: BP 130/60
[2018-07-23 04:53] LABS: BASOPHILS 0.4 % (0-2); EOSINOPHILS 3.1 % (0-7); HEMATOCRIT 31.5 % (36.0-48.0); HEMOGLOBIN 9.1 g/dL (12-16); IMMATURE GRANULOCYTES 0.3 % (0-5); LYMPHOCYTES 14.8 % (15-50); MCH 21.1 pg (26.0-34.0); MCHC 28.9 g/dL (31.0-37.0); MCV 72.9 fL (80.0-100.0); MEAN PLATELET VOLUME 10.9 fL (7.4-10.4); MONOCYTES 8.5 % (2-11); NEUTROPHILS 72.9 % (40-80); PLATELET COUNT 399 10x3/uL (130-400); RBC 4.32 10x6/uL (4.00-5.40); RDW 16.6 % (11.5-14.5); WBC 7.6 10x3/uL (4.8-10.8)
[2018-07-23 05:02] LABS: ALBUMIN 2.6 g/dL (3.4-5.0); BILIRUBIN - TOTAL 0.16 mg/dL (0.2-1.3); CALCIUM 8.4 mg/dL (8.5-10.1); CARBON DIOXIDE 23.2 mmol/L (21.0-32.0); CREATININE - SERUM 0.9 mg/dL (0.6-1.3); MAGNESIUM - SERUM 2.2 mg/dL (1.8-2.4); PHOSPHOROUS 3.6 mg/dL (2.5-4.9); POTASSIUM - SERUM 4.2 mmol/L (3.5-5.1); PROTEIN - SERUM 6.8 g/dL (6.4-8.2)
--- NOTE | 2018-07-23 08:00 | NUR ---
PT RESTING IN BED. NO SIGNS OF DISTRESS. IV TO RIGHT PORT PATENT NO REDNESS OR TENDERNESS. ON TELEMETRY 112 SINUS TACH. ON 2L NC. COMPLAINS OF NAUSEA. HAS J TUBE TO LEFT SIDE. SITE IS RED AROUND TUBE AND HAS ACTIVE DRAINAGE AROUND. DENIES ANY OTHER NEED AT THIS TIME. CALL LIGHT IN REACH. BED LOW POSITION. NO FAMILY AT BEDSIDE AT THIS TIME.
[2018-07-23 08:18] VITALS: BP 142/65
[2018-07-23 12:31] VITALS: BP 159/67
[2018-07-23 16:30] VITALS: BP 130/55; BP 156/79
--- NOTE | 2018-07-23 18:52 | NUR ---
PATIENT IS ALERT AND ORIENTED. RIGHT CHEST PORT CURRENTLY INFUSING. JTUBE IS CALMPED AT THSI TIME. PATIENT COMPLAINS OF SHORTNESS OF BREATH WHEN SHE STANDS UP. BED IS IN LOW POSTITION AND CALL LIGHT IS IN REACH
[2018-07-23 20:00] VITALS: BP 138/60
[2018-07-24 00:01] VITALS: BP 129/54
[2018-07-24 04:00] VITALS: BP 140/69
[2018-07-24] MEDS ORDERED: PHENERGAN12.5 MG RC (07:06)
--- NOTE | 2018-07-24 07:41 | NUR ---
PT SITTING UP IN BED, STATED SHE IS READY TO GO HOME, PT VISITED WITH DR BLACKWELL THIS MORNING AND DC ORDERS ARE PLACED. NO NEEDS VOICED, FAMILY JUST ARRIVING, CONTINUE WITH PLAN OF CARE
--- NOTE | 2018-07-24 07:51 | MORECARE ---
CASE MANAGEMENT DISCHARGE SUMMARY PATIENT: LIZ JOYCE UNIT: [id number] ADM DATE: 07/16/18 AGE: 83 : 37 SEX: F ROOM/BED: D.2204 AUTHOR: LETICIA ALONSO PHYSICIAN: REFERRING PHYSICIAN: MARIAMA BLACKWELL MD DATE OF SERVICE: 07/24/18 Discharge Plan Patient Name: LIZ JOYCE Facility: [facility]:[place] : 1935 Planned Disposition: Home with Home Health Anticipated Discharge Date: 07/21/18 Discharge Date: Expected LOS: 5 Initial Reviewer: [email or web address] Initial Review Date: 07/16/2018 Generated: 07/24/18 8:51 am Comments DCP- Discharge Planning Updated by [email or web address]: Lata Lara on 07/24/18 6:[address] Patient discharging home today, her son is at her bedside and will be her racecar driver. She feels safe to dc home she has all DME and will resume [facility]. IMM served and explained. CM will continue to follow and assist with DC as needed DCP- Discharge Planning Updated by [email or web address]: Carmen Head on 07/16/18 1:[address] Patient Name: LIZ JOYCE Admission Status: ER Accout number: [id number] Admission Date: 07-16-2018 : 1935 Admission Diagnosis: Attending: MARIAMA BLACKWELL Current LOS: 1 Anticipated DC Date: 07-21-2018 Planned Disposition: Home with Home Health Primary Insurance: [facility] [employer] Discharge Planning Comments: CM met with patient her son and daughter to complete initial dc planning assessment. CM educated patient on the CM role and verbal consent given by patient to complete assessment. Patient lives at home alone next to her daughter. She reports she requires assistance with bathing, transportation, and her medications. At discharge patient plans to return home with resumption of [facility]. SELAM form explained to the patient and she signed for [facility] to resume her care at home. She and her family feel this is a safe dc plan for the patient. Patient denied further known discharge needs at this time. CM will continue to follow and will assist as needed with dc plans/needs. Strategic Buyer: Carmen Head RN, CCM Appended by Carmen Head on 07/16/2018 14:06 INSTRUCTOR WASTEW[employer]ANT: Patient also has a type of lifeline that when she pushes her necklace button it calls her sons cell phone first, then his daughters second if her son does not answer. DCPIA - Discharge Planning Initial Assessment Updated by [email or web address]: Carmen Head on 07/16/18 2:02 pm * Is the patient Alert and Oriented? Yes * How many steps to enter\exit or inside your home? none * PCP Dr. العلي * Pharmacy [facility] * Preadmission Environment Home Alone * ADLs Partial Dependent * Partial ADLs (Assistance needed) Bathing Medication Management * Equipment Nebulizer Oxygen Rolling Walker Wheelchair * Other Equipment [facility] is O2 provider * List name and contact numbers for known caregivers / representatives who currently or will assist patient after discharge: Daisy Knapp daughter - [phone] Kenney gomez POA - [phone] * Verbal permission to speak to the caregivers and representatives has been obtained from the patient. Yes * Community resources currently utilized Home Health * Please name any agencies selected above. [facility] * Additional services required to return to the preadmission environment? No * Can the patient safely return to the preadmission environment? Yes * Has this patient been hospitalized within the prior 30 days at any hospital? No Coverage Notice Reviewer: [id number] Ra Lara Notice Issued Date-Time: 07/24/2018 7:35 Notice Type: IM Discharge Notice Notice Delivered To: Patient Relationship to Patient: Pile Driving Setter Name: Delivery Method: HAND - Hand Delivered Marcela Days: Prior Verbal Notification: Recipient Understood Notice: Yes Recipient Signature: Yes Med Rec Note Co-signed by Attending: Coverage Notice Comment: Last DP export: 07/16/18 1:07 pm Patient Name: LIZ JOYCE Page [id number] at 0751 All edits/amendments must be made on the electronic document DICTATION DATE: 07/24/18750 A AUXILIARY: STEPHEN 07/24/18750 RPT#: [id number] DC DATE: STATUS: ADM IN [facility] [address] [place] [address] END OF REPORT
--- NOTE | 2018-07-24 09:00 | NUR ---
PT SITTING UP IN BED WITH FAMILY AT [facility], PT PEG TUBE SITE IS LEAKING CHANGED DRESSING AND FLUSHED TUBE. HAD PT SIGN DC PAPERWORK AND WENT OVER FOLLOW UP CARE AND APPOINTMENTS WITH PT AND FAMILY. ALL QUESTIONS ANSWERED, PT TAKEN DOWN BY VOLUNTEERS
--- NOTE | 2018-07-24 09:01 | MORECARE ---
CASE MANAGEMENT DISCHARGE SUMMARY PATIENT: LIZ JOYCE UNIT: [id number] ADM DATE: 07/16/18 AGE: 83 : 37 SEX: F ROOM/BED: D.2204 AUTHOR: LETICIA ALONSO PHYSICIAN: REFERRING PHYSICIAN: MARIAAM BLACKWELL MD DATE OF SERVICE: 07/24/18 Discharge Plan Patient Name: LIZ JOYCE Facility: [facility]:[place] : 1935 Planned Disposition: Home with Home Health Anticipated Discharge Date: 07/21/18 Discharge Date: Expected LOS: 5 Initial Reviewer: [email or web address] Initial Review Date: 07/16/2018 Generated: 07/24/18 10:01 am Comments DCP- Discharge Planning Updated by [email or web address]: Lata Lara on 07/24/18 6:[address] Patient discharging home today, her son is at her bedside and will be her helper driver. She feels safe to dc home she has all DME and will resume [facility]. IMM served and explained. CM will continue to follow and assist with DC as needed DCP- Discharge Planning Updated by [email or web address]: Carmen Head on 07/16/18 1:[address] Patient Name: LIZ JOYCE Admission Status: ER Accout number: [id number] Admission Date: 07-16-2018 : 1935 Admission Diagnosis: Attending: MARIAMA BLACKWELL Current LOS: 1 Anticipated DC Date: 07-21-2018 Planned Disposition: Home with Home Health Primary Insurance: [facility] MEDICARE SOLUTIONS Discharge Planning Comments: CM met with patient her son and daughter to complete initial dc planning assessment. CM educated patient on the CM role and verbal consent given by patient to complete assessment. Patient lives at home alone next to her daughter. She reports she requires assistance with bathing, transportation, and her medications. At discharge patient plans to return home with resumption of [facility]. SELAM form explained to the patient and she signed for [facility] to resume her care at home. She and her family feel this is a safe dc plan for the patient. Patient denied further known discharge needs at this time. CM will continue to follow and will assist as needed with dc plans/needs. Cra Officer: Carmen Head RN, CCM Appended by Carmen Head on 07/16/2018 14:06 CULINARY MANAGER: Patient also has a type of lifeline that when she pushes her necklace button it calls her sons cell phone first, then his daughters second if her son does not answer. DCPIA - Discharge Planning Initial Assessment Updated by [email or web address]: Carmen Sonido on 07/16/18 2:02 pm * Is the patient Alert and Oriented? Yes * How many steps to enter\exit or inside your home? none * PCP Dr. العلي * Pharmacy [facility] * Preadmission Environment Home Alone * ADLs Partial Dependent * Partial ADLs (Assistance needed) Bathing Medication Management * Equipment Nebulizer Oxygen Rolling Walker Wheelchair * Other Equipment [facility] is O2 provider * List name and contact numbers for known caregivers / representatives who currently or will assist patient after discharge: Daisy Knapp daughter - [phone] Kenney Knapp son POA - [phone] * Verbal permission to speak to the caregivers and representatives has been obtained from the patient. Yes * Community resources currently utilized Home Health * Please name any agencies selected above. [facility] * Additional services required to return to the preadmission environment? No * Can the patient safely return to the preadmission environment? Yes * Has this patient been hospitalized within the prior 30 days at any hospital? No External Providers External Provider: [facility] Next Contact Date: Service Request Date: Service Type: Resolution: Reviewer: Comments: Coverage Notice Reviewer: [email or web address] - Lata Lara Notice Issued Date-Time: 07/24/2018 7:35 Notice Type: IM Discharge Notice Notice Delivered To: Patient Relationship to Patient: Academic Affairs Director Name: Delivery Method: HAND - Hand Delivered Marcela Days: Prior Verbal Notification: Recipient Understood Notice: Yes Recipient Signature: Yes Med Rec Note Co-signed by Attending: Coverage Notice Comment: Last DP export: 07/24/18 6:51 a Patient Name: LIZ JOYCE Page 02221 at 0901 All edits/amendments must be made on the electronic document DICTATION DATE: 07/24/18900 JOURNEYMAN MOLDER: STEPHEN 07/24/18900 RPT#: [id number] DC DATE: STATUS: ADM IN [facility] [address] [facility] [place] [address] END OF REPORT
[2018-07-24 09:02] VITALS: BP 143/54
--- NOTE | 2018-07-24 09:08 | MORECARE ---
CASE MANAGEMENT DISCHARGE SUMMARY PATIENT: LIZ JOYCE UNIT: [id number] ADM DATE: 07/16/18 AGE: 83 : 37 SEX: F ROOM/BED: D.2204 AUTHOR: LETICIA ALONSO PHYSICIAN: REFERRING PHYSICIAN: MARIAMA BLACKWELL MD DATE OF SERVICE: 07/24/18 Discharge Plan Patient Name: LIZ JOYCE Facility: [facility]:[place] : 1935 Planned Disposition: Home with Home Health Anticipated Discharge Date: 07/21/18 Discharge Date: Expected LOS: 5 Initial Reviewer: [email or web address] Initial Review Date: 07/16/2018 Generated: 07/24/18 10:08 am Comments DCP- Discharge Planning Updated by [email or web address]: Lata Lara on 07/24/18 8:[address] SPOKE WITH JOSUE AT [facility] THEY WILL RESUME THIS WEEKEND DCP- Discharge Planning Updated by [email or web address]: Lata Lara on 07/24/18 6:[address] Patient discharging home today, her son is at her bedside and will be her corporate driver. She feels safe to dc home she has all DME and will resume [facility]. IMM served and explained. CM will continue to follow and assist with DC as needed DCP- Discharge Planning Updated by [email or web address]: Carmen Head on 07/16/18 1:[address] Patient Name: LIZ JOYCE Admission Status: ER Accout number: [id number] Admission Date: 07-16-2018 : 1935 Admission Diagnosis: Attending: MARIAMA BLACKWELL Current LOS: 1 Anticipated DC Date: 07-21-2018 Planned Disposition: Home with Home Health Primary Insurance: [facility] MEDICARE SOLUTIONS Discharge Planning Comments: CM met with patient her son and daughter to complete initial dc planning assessment. CM educated patient on the CM role and verbal consent given by patient to complete assessment. Patient lives at home alone next to her daughter. She reports she requires assistance with bathing, transportation, and her medications. At discharge patient plans to return home with resumption of [facility]. SELAM form explained to the patient and she signed for [facility] to resume her care at home. She and her family feel this is a safe dc plan for the patient. Patient denied further known discharge needs at this time. CM will continue to follow and will assist as needed with dc plans/needs. [employer]: Carmen Head RN, CCM Appended by Carmen Head on 07/16/2018 14:06 SENIOR SCRUM MASTER: Patient also has a type of lifeline that when she pushes her necklace button it calls her sons cell phone first, then his daughters second if her son does not answer. DCPIA - Discharge Planning Initial Assessment Updated by [email or web address]: Carmen Head on 07/16/18 2:02 pm * Is the patient Alert and Oriented? Yes * How many steps to enter\exit or inside your home? none * PCP Dr. العلي * Pharmacy [facility] * Preadmission Environment Home Alone * ADLs Partial Dependent * Partial ADLs (Assistance needed) Bathing Medication Management * Equipment Nebulizer Oxygen Rolling Walker Wheelchair * Other Equipment [facility] is O2 provider * List name and contact numbers for known caregivers / representatives who currently or will assist patient after discharge: Daisy Solis - daughter - [phone] Kenney Knapp son POA - [phone] * Verbal permission to speak to the caregivers and representatives has been obtained from the patient. Yes * Community resources currently utilized Home Health * Please name any agencies selected above. [facility] * Additional services required to return to the preadmission environment? No * Can the patient safely return to the preadmission environment? Yes * Has this patient been hospitalized within the prior 30 days at any hospital? No Coverage Notice Reviewer: [id number] Ra Lara Notice Issued Date-Time: 07/24/2018 7:35 Notice Type: IM Discharge Notice Notice Delivered To: Patient Relationship to Patient: Switch Cleaner Name: Delivery Method: HAND - Hand Delivered Marcela Days: Prior Verbal Notification: Recipient Understood Notice: Yes Recipient Signature: Yes Med Rec Note Co-signed by Attending: Coverage Notice Comment: Last DP export: 07/24/18 8:01 a Patient Name: LIZ JOYCE Page 19542 at 0908 All edits/amendments must be made on the electronic document DICTATION DATE: 07/24/18907 ONLINE PRODUCER: STEPHEN 07/24/18 09 RPT#: [id number] DC DATE: STATUS: ADM IN [facility] [address] [place] [address] END OF REPORT
--- NOTE | 2018-07-24 09:24 | NUR ---
SHIP RIGGER NOTE-STATES NO NAUSEA THIS AM. PEG TUBE EXCHANGED YESTERDAY AND DRESSING IS BEING CURRENTLY CHANGED PER PT NURSE. FOR DISCHARGE THIS AM. CALL LIGHT IN REACH AND FAMILY AT BEDSIDE
--- NOTE | 2018-07-24 14:33 | MORECARE ---
CASE MANAGEMENT DISCHARGE SUMMARY PATIENT: LIZ JOYCE UNIT: [id number] ADM DATE: 07/16/18 AGE: 83 : 37 SEX: F ROOM/BED: D.2204 AUTHOR: LETICIA ALONSO PHYSICIAN: REFERRING PHYSICIAN: MARIAMA BLACKWELL MD DATE OF SERVICE: 07/24/18 Discharge Plan Patient Name: LIZ JOYCE Facility: [facility]:[place] : 1935 Planned Disposition: Home with Home Health Anticipated Discharge Date: 07/21/18 Discharge Date: 07/24/2018 Expected LOS: 5 Initial Reviewer: [email or web address] Initial Review Date: 07/16/2018 Generated: 07/24/18 3:32 pm Comments DCP- Discharge Planning Updated by [email or web address]: Lata Lara on 07/24/18 8:[address] SPOKE WITH JOUSE AT [facility] THEY WILL RESUME THIS WEEKEND DCP- Discharge Planning Updated by [email or web address]: Lata Lara on 07/24/18 6:[address] Patient discharging home today, her son is at her bedside and will be her driver courier. She feels safe to dc home she has all DME and will resume [facility]. IMM served and explained. CM will continue to follow and assist with DC as needed DCP- Discharge Planning Updated by [email or web address]: Carmen Head on 07/16/18 1:[address] Patient Name: LIZ JOYCE Admission Status: ER Accout number: [id number] Admission Date: 07-16-2018 : 1935 Admission Diagnosis: Attending: MARIAMA BLACWKELL Current LOS: 1 Anticipated DC Date: 07-21-2018 Planned Disposition: Home with Home Health Primary Insurance: [facility] MEDICARE SOLUTIONS Discharge Planning Comments: CM met with patient her son and daughter to complete initial dc planning assessment. CM educated patient on the CM role and verbal consent given by patient to complete assessment. Patient lives at home alone next to her daughter. She reports she requires assistance with bathing, transportation, and her medications. At discharge patient plans to return home with resumption of [facility]. SELAM form explained to the patient and she signed for [facility] to resume her care at home. She and her family feel this is a safe dc plan for the patient. Patient denied further known discharge needs at this time. CM will continue to follow and will assist as needed with dc plans/needs. Range Management Specialist: Carmen Head RN, CCM Appended by Carmen Head on 07/16/2018 14:06 SR SOLUTIONS CONSULTANT: Patient also has a type of lifeline that when she pushes her necklace button it calls her sons cell phone first, then his daughters second if her son does not answer. DCPIA - Discharge Planning Initial Assessment Updated by [email or web address]: Carmen Head on 07/16/18 2:02 pm * Is the patient Alert and Oriented? Yes * How many steps to enter\exit or inside your home? none * PCP Dr. العلي * Pharmacy [facility] * Preadmission Environment Home Alone * ADLs Partial Dependent * Partial ADLs (Assistance needed) Bathing Medication Management * Equipment Nebulizer Oxygen Rolling Walker Wheelchair * Other Equipment [facility] is O2 provider * List name and contact numbers for known caregivers / representatives who currently or will assist patient after discharge: Daisy Slois - daughter - [phone] Kenney Knapp son POA - [phone] * Verbal permission to speak to the caregivers and representatives has been obtained from the patient. Yes * Community resources currently utilized Home Health * Please name any agencies selected above. [facility] * Additional services required to return to the preadmission environment? No * Can the patient safely return to the preadmission environment? Yes * Has this patient been hospitalized within the prior 30 days at any hospital? No Coverage Notice Reviewer: [id number] Ra Lara Notice Issued Date-Time: 07/24/2018 7:35 Notice Type: IM Discharge Notice Notice Delivered To: Patient Relationship to Patient: Casting Cleaner Name: Delivery Method: HAND - Hand Delivered Marcela Days: Prior Verbal Notification: Recipient Understood Notice: Yes Recipient Signature: Yes Med Rec Note Co-signed by Attending: Coverage Notice Comment: Last DP export: 07/24/18 8:08 a Patient Name: LIZ JOYCE Page 01514 at 1433 All edits/amendments must be made on the electronic document DICTATION DATE: 07/24/181431 PROFESSIONAL HOUSING CONSULTANT: STEPHEN 07/24/18 143 RPT#: [id number] DC DATE:07/24/18 STATUS: DIS IN [facility] [address] [place] [address] END OF REPORT
== END 2018-07-24 11:19 | disposition home health service (06) | DRG 189 ==
LOC: D.ER 10:04 → D.EDHOLD 11:42 → D.MS 11:42
PROVIDERS: Emergency Medicine; General Practice; Internal Medicine Pulmonary Disease; ADMIT Family Medicine
PROC: 0D2DXUZ Change Feeding Device in Lower Intestinal Tract, External Approach (ICD-10-PCS; principal; 2018-07-23 10:00)
DX: J96.20 Acute and chronic respiratory failure, unspecified whether with hypoxia or hypercapnia (principal); J15.1 Pneumonia due to Pseudomonas; J47.0 Bronchiectasis with acute lower respiratory infection; K21.9 Gastro-esophageal reflux disease without esophagitis; I48.91 Unspecified atrial fibrillation; I10 Essential (primary) hypertension; E03.9 Hypothyroidism, unspecified; Z86.73 Personal history of transient ischemic attack (TIA), and cerebral infarction without residual deficits

== ENCOUNTER → 2018-08-14 13:38 | Outpatient (CLI) | payer MEDICARE ==
[2018-07-17 16:13] VITALS: BMI 19.6
[~2018-08-14 13:38] MED LIST changes: +PHENERGAN12.5 MG RC
[2018-08-14 15:03] LABS: CALC OSMOLALITY 281 mosm/kg (275-300); CALCIUM 8.2 mg/dL (8.5-10.1); CARBON DIOXIDE 25.8 mmol/L (21.0-32.0); CHLORIDE - SERUM 103 mmol/L (98-107); CREATININE - SERUM 0.7 mg/dL (0.6-1.3); POTASSIUM - SERUM 5.2 mmol/L (3.5-5.1); SODIUM 140 mmol/L (136-145); UREA NITROGEN 27 mg/dL (7-18); eGFR NON AFRICAN AMERICAN 85 mL/min (90-120)
[2018-08-14 15:06] LABS: GLUCOSE 70 mg/dL (74-106)
== END | disposition home or self-care (01) ==
LOC: D.LABREF 13:38
PROVIDERS: ATTEND Family Medicine
DX: E86.0 Dehydration (principal)

== ENCOUNTER 2018-09-01 11:47 | Inpatient (IN) | payer MEDICARE ==
[~2018-09-01] VITALS: Ht 175.3 cm; Wt 60.8 kg
--- NOTE | ~2018-09-01 | HEMODYNAMI ---
PATIENT:LIZ JOYCE MEDICAL RECORD: [id number] : 39 LOCATION: D.2224 ADMISSION DATE: 09/01/18 Generatedon:09/03/201811:43 Patient name: LIZ JOYCE Patient #: [id number] SSN: DO B: 1935 Date of study: 09/03/2018 Page: Of Hemodynamic Procedure Report Patient Data Patient Demographics Procedure consent was obtained First Name: LIZ Gender: Female Last Name: MARIA DEL CARMEN : 1935 Middle Initial: E Age: 83 year(s) Patient #: [id number] Race: Unknown Additional ID: [id number] Contact details Address: [address] [place] [address] State: [place] City: [facility] Zip code: [address] Past Medical History Allergies Allergen Reaction Date Comments Reported Morphine 02/12/2018 Codeine 02/12/2018 Morphine Other 05/26/2018 Other 07/23/2018 MORPHINE,CODIENE,TESSALON allergy STEIN Other 09/03/2018 morphine,codeine allergy Admission Admission Data Admission Date: 09/01/2018 Admission Time: 11:47 Room #: D.2224 Procedure Procedure Types Cath Procedure Peripheral Cath Diagnostic Procedure Gastric J- Tube Replacement/Exchange Procedure Description Procedure Date Procedure Date: 09/03/2018 Procedure Start Time: 11:27 Procedure End Time: 11:42 Procedure Staff Name Function Charlie Rousseau MD Performing Physician Latrice Farr Monitor Bhaskar Hoff RT Scrub Yanni Sawyer RN Nurse Procedure Data Cath Procedure Fluoroscopy Diagnostic fluoroscopy Total fluoroscopy Time: 0.6 time: 0.6 min min Diagnostic fluoroscopy Total fluoroscopy dose: 4 dose: 4 mGy mGy Contrast Material Contrast Material Type Amount (ml) Isovue 300 18 Hemodynamics Rest Pre Cath Intra NCS Post Cath Procedure Log Time Note 11:15:32 Latrice Farr sent for patient. Start room use. 11:15:35 Time tracking: Regular hours (M-F 7:00 - 5:00) 11:15:53 Plan of Care:Hemodynamics will remain stable., Cardiac rhythm will remain stable., Comfort level will be maintained., Respiratory function will remain adequate., Patient/ family verbilizes understanding of procedure., Procedure tolerated without complication., Recovers from procedure without complications.. 11:16:03 Patient received from Med/Surg to IR Alert and oriented. Tansferred to table in Supine position. 11:16:06 Warm blankets applied for patient comfort. 11:16:31 Correct patient and procedure confirmed by team. 11:16:35 Signed procedure consent form obtained from patient. 11:16:46 - 11:16:52 Pre-procedure instructions explained to patient. 11:16:54 Pre-op teaching completed and patient verbalized understanding. 11:16:57 Family in patients room. 11:17:07 Is the patient allergic to Iodine/contrast media? No. 11:17:52 Patient allergic to Other allergymorphine,codeine 11:18:14 Is patient on blood thinner?No 11:18:36 Patient diabetic? No. 11:19:15 Left abdomen area was prepped with betadine and draped in sterile fashion 11:19:19 Alarms reviewed . 11:19:20 Sharps counted by scrub and verified . 11:19:55 Use device set IR Diagnostic 11:19:58 Sterile Angiographic Pack opened to sterile field. 11:19:59 Bag Decanter (2002S) opened to sterile field. 11:27:08 Physician arrived 11:27:09 --------ALL STOP TIME OUT------ 11:27:10 Final Timeout: patient, procedure, and site verified with staff and physician. All members of the team are in agreement. 11:27:17 Left abdomen site verified by team. 11:27:30 Sedation plan: Local Anesthetic Medication:Lidocaine 11:27:40 Procedure started. 11:27:40 Full Disclosure recording started 11:27:56 Local anesthetic to Abdominal area with Lidocaine 1% by Charlie Rousseau MD.INITIAL ACCESS ONLY 11:29:10 JEJUNAL 20 FR. TUBE (0) opened to sterile field. 11:31:40 ROADRUNNER .035 145 glide wire ([id number]) opened to sterile field. 11:32:19 CONTRAST IS INJECTED INTO THE EXISTING TUBE. 11:33:04 A ROADRUNNER WIRE IS USED TO MANUVER THE EXISTING TUBE. 11:33:51 THE OLD J-TUBE IS REMOVED AND A NEW 20 ECUADOREAN JEJUNAL FEEDING TUBE IS REPLACED. 11:35:24 AN INJECTION IS MADE IN THE NEW J-TUBE TO CONFIRM LOCATION. 11:35:34 Procedure ended.(Physican Out) 11:36:22 A DRAIN SPONGE IS PLACED AROUND THE J-TUBE. 11:36:38 Fluoroscopy time 00.60 minutes. 11:36:45 Fluoroscopy dose: 4 mGy 11:36:45 Flurop Dose total: 4 11:36:54 Contrast amount:Isovue 300 18ml. 11:36:57 Sharps counted by scrub and verified. 11:37:27 Post Abdominal area:unchanged 11:37:36 Post procedure instruction explained to patient.Patient verbalizes understanding. 11:37:38 Patient needs reinforcement of post procedure teaching. 11:39:07 Procedure and supply charges have been captured, reviewed, submitted an d are correct. 11:40:18 See physician's report for complete and final results. 11:40:22 Report given to Med/Surg. 11:40:31 Patient transfered to Med/Surg with Bed. 11:42:38 Procedure ended. 11:42:38 Full Disclosure recording stopped Device Usage Item Name Manufacture Quantity Catalog Hospital Part Current Minimal Lot# / Number Charge Number Stock Stock Serial# Code Sterile Cardinal 1 [id number] 5 Angiographic Health Pack Bag Decanter Microtek 1 [id number] 5 () [employer] JEJUNAL 20 [place] 1 199- [id number] 1 FR. TUBE [employer] () [facility] 1 [id number] 5 [id number] .035 145 glide wire ([id number]) Signature Audit Creola Stage Time Signature Unsigned Intra-Procedure 09/03/2018 Latrice 11:43:00 AM Yordan Signatures Monitor : Latrice Signature : Yordan Date : Time : [place] [address] [place] [address]
[2018-09-01 15:30] LABS: CKMB 0.5 U/L (0.0-3.6); CREATINE KINASE 58 UL (21-215)
[2018-09-01 15:32] LABS: TROPONIN-I < 0.017 ng/mL (0.000-0.060)
[2018-09-01 16:14] VITALS: BMI 19.8
[2018-09-01 16:39] VITALS: BP 129/52
--- NOTE | 2018-09-01 18:51 | NUR ---
I have reviewed this patient and I concur with the Shift Assessment completed by the Licensed Practical Nurse today this shift.
--- NOTE | 2018-09-01 19:45 | NUR ---
PT SITTING UP IN BED, NO SIGNS OF DISTRESS. BREATHING SHALLOW, SOB W/ EXERTION. O2 2L/NC. PRODUCTIVE COUGH W/ YELLOW-GREEN SPUTUM. PEG TUBE DRESSING CDI. ASSISTED UP TO BEDSIDE COMMODE AND BACK TO BED. KEVIN ON. SCDS ON. CL IN REACH,WILL CONT TO MONITOR
[2018-09-01 20:27] VITALS: BP 141/56
[2018-09-01 20:42] LABS: CKMB 0.5 U/L (0.0-3.6); CREATINE KINASE 53 UL (21-215)
[2018-09-01 20:43] LABS: TROPONIN-I < 0.017 ng/mL (0.000-0.060)
[2018-09-02 00:40] VITALS: BP 121/53
[2018-09-02 02:30] LABS: CKMB 0.4 U/L (0.0-3.6); CREATINE KINASE 50 UL (21-215)
[2018-09-02 02:35] LABS: TROPONIN-I < 0.017 ng/mL (0.000-0.060)
[2018-09-02 04:47] VITALS: BP 146/74
[2018-09-02 08:18] VITALS: BP 146/61
--- NOTE | 2018-09-02 08:44 | HP ---
PATIENT: LIZ JOYCE MEDICAL RECORD: [id number] ACCOUNT: [id number] LOCATION:D.MS [address]hen[address]2224 : [birth year] ADMISSION DATE: 09/01/18 PCP: KEEGAN SAM MD HISTORY AND PHYSICAL EXAMINATION DATE OF ADMISSION: 09/01/2018 CHIEF COMPLAINT: Dyspnea and fever. HISTORY: This is an 83-year-old female with chronic bronchiectasis, followed by pulmonary doctors and Ailin Wu APN, at [facility]. She was seeing Ailin today and was complaining of low-grade fever of around 100 for the last 3-4 days. She has had increased dyspnea. She moved her oxygen up to 4 liters. She is having to work harder to breathe. She has been having some nausea and some occasional left-sided chest pain. Her blood pressure has actually been elevated, which is fairly new for her. She has a long history of chronic bronchiectasis, asthma/COPD. With her symptoms, she is directly admitted to [facility] for further care. PAST MEDICAL AND SURGICAL HISTORY: Bronchiectasis, asthma/COPD, chronic cough, persistent nausea, reflux, pulmonary nodules, atrial fibrillation, history of CVA in the past, hypertension, hypothyroidism, anemia, disability due to her chronic illnesses, hypoxic respiratory failure which is chronic and she wears a vest, and history of cardiac arrhythmias. PAST SURGICAL HISTORY: Cataract surgery bilaterally, appendectomy, cholecystectomy, hysterectomy, lumbar discectomy times 3, and benign tumor removed from her neck in the past. She has had PEG placement. ALLERGIES: SULFA, PENICILLIN, AND DILTIAZEM. FAMILY HISTORY: Noncontributory. HOME MEDICATIONS: Include Zofran 8 mg per gastrostomy tube q. 8 hours p.r.n. nausea and vomiting, Protonix 40 mg twice a day, pramipexole 0.125 mg at bedtime, vitamin D 50,000 units two times a week on Mondays and Fridays, Advair metered dose inhaler two puffs twice a day, levothyroxine 112 mcg once a day, Singulair 10 mg at bedtime, probiotic once a day, Pepcid 20 mg at bedtime, Xanax 0.25 mg twice a day p.r.n. anxiety, Lopressor 25 mg one-half equals 12.5 mg once a day, Mucomyst p.r.n. at home, Xopenex four times a day via nebulizer, Mucinex 600 mg two pills twice a day, saline nasal spray two sprays p.r.n., Robaxin 500 mg t.i.d. p.r.n. spasm, tramadol 50 mg q. 4 hours p.r.n. pain, Tylenol 500 mg q. 6 hours p.r.n. fever or pain, Myrbetriq 25 mg one p.o. at bedtime, MiraLAX p.r.n. constipation, Robitussin 5 mL q. 4 hours p.r.n. cough, and ProAmatine 5 mg three times a day. FAMILY HISTORY: Noncontributory. REVIEW OF SYSTEMS: GENERAL: No recent weight changes. HEENT: She has sinus congestion and allergies. RESPIRATORY: Chronic cough, on home oxygen, history of bronchiectasis, asthma, COPD. CARDIAC: No palpitations. GASTROINTESTINAL: Chronic nausea, intermittent loose stools. HISTORY AND PHYSICAL [id number] LIZ JOYCE NEUROLOGIC: No migraines or seizures. MUSCULOSKELETAL: Arthritic pains in her back. PSYCHIATRIC: Denies depression. PHYSICAL EXAMINATION: VITAL SIGNS: Today, temperature 98.4, pulse 100, respirations 18, blood pressure 129/52, and O2 sat 96% on 4 liters. GENERAL: She is awake and alert. She does not appear in distress at this time. HEENT: Grossly within normal limits. NECK: Supple. HEART: Regular rate and rhythm. LUNGS: Coarse airway sounds bilaterally. ABDOMEN: G-tube in place. EXTREMITIES: No edema. LABORATORY DATA: Lab work done in our office today; CBC showed white count of 9200, hemoglobin 9.6, hematocrit 32.5, and MCV 74. Basic metabolic panel is normal. Urinalysis was clear. Influenza test was negative. ASSESSMENT: 1. Pneumonia in the left lower lobe and diffuse patches bilaterally. 2. Bronchiectasis. 3. Shortness of breath. PLAN: Pulmonary has been consulted. We will start her on broad-spectrum antibiotics and respiratory meds. Continue her usual home meds. Other tests and procedures as warranted. TRANSINT:[id number] Voice Confirmation ID: [id number] DOCUMENT ID: [id number] KEEGAN SAM MD at 0844 CC: [id number] DICTATION DATE: 09/01/18 1745 WINE CONSULTANT: 09/01/18 1824 ADM IN [place] [id number] [place] [address]
[2018-09-02 10:26] VITALS: Ht 175.3 cm; Wt 60.8 kg
--- NOTE | 2018-09-02 13:45 | NUR ---
PATIENT BACK TO ROOM AT THIS TIME. VS STABLE. NO COMPLAINTS OR DISTRESS. FAMILY AT BEDSIDE. CALL LIGHT WITHIN REACH.
--- NOTE | 2018-09-02 14:45 | NUR ---
PATIENT IN BED WITH NO COMPLAINTS OR SIGNS OF DISTRESS. IV INTACT. FAMILY AT BEDSIDE. CALL LIGHT WITHIN REACH.
--- NOTE | 2018-09-02 16:47 | MORECARE ---
CASE MANAGEMENT DISCHARGE SUMMARY PATIENT: LIZ JOYCE UNIT: [id number] ADM DATE: 09/01/18 AGE: 83 : 37 SEX: F ROOM/BED: D.2224 AUTHOR: LETICIA ALONSO PHYSICIAN: REFERRING PHYSICIAN: KEEGAN SAM MD DATE OF SERVICE: 09/02/18 Discharge Plan Patient Name: LIZ JOYCE Facility: [facility]:[place] : 1935 Planned Disposition: Home with Home Health Anticipated Discharge Date: Discharge Date: Expected LOS: Initial Reviewer: [email or web address] Initial Review Date: 09/02/2018 Generated: 09/02/18 5:47 pm Patient Name: LIZ JOYCE Page 33306 at 1647 All edits/amendments must be made on the electronic document DICTATION DATE: 09/02/181646 HEALTH CARE LAW SPECIALIST: STEPHEN 09/02/181646 RPT#: [id number] DC DATE: STATUS: ADM IN [facility] [address] [place] [address] END OF REPORT
--- NOTE | 2018-09-02 16:55 | MORECARE ---
CASE MANAGEMENT DISCHARGE SUMMARY PATIENT: LIZ JOYCE UNIT: [id number] ADM DATE: 09/01/18 AGE: 83 : 37 SEX: F ROOM/BED: D.2224 AUTHOR: CELESTE,DOC PHYSICIAN: REFERRING PHYSICIAN: KEEGAN SAM MD DATE OF SERVICE: 09/02/18 Discharge Plan Patient Name: LIZ JOYCE Facility: [facility]:[place] : 1935 Planned Disposition: Home with Home Health Anticipated Discharge Date: Discharge Date: Expected LOS: Initial Reviewer: [email or web address] Initial Review Date: 09/02/2018 Generated: 09/02/18 5:55 pm Comments DCP- Discharge Planning Updated by [email or web address]: Argelia Collins on 09/02/18 3:[address] Patient Name: LIZ JOYCE Admission Status: Elective Accout number: [id number] Admission Date: 09-01-2018 : 1935 Admission Diagnosis: Attending: KEEGAN SAM Current LOS: 1 Anticipated DC Date: Planned Disposition: Home with Home Health Primary Insurance: [facility] MEDICARE SOLUTIONS Discharge Planning Comments: CM met with patient to discuss discharge planning/needs, her daughter and son are in the room and verbal permission received to discuss discharge planning in their presence. She lives alone, daughter states "I live 40 feet away". States daughter assists her with bathing, medication management and with transportation. States she has [facility] for nursing and PT. I discussed the availability of inpatient rehab, skilled, resumption of home health and additional DME. She states her plan is to return home with the resumption of [facility], choice form signed. She does receive her tube feeding and supplies in the mail from [facility]. Denies further needs at this time. No additional needs identified. CM will continue to follow and assist with discharge planning/needs. Talent Consultant: Argelia Collins DCPIA - Discharge Planning Initial Assessment Updated by [email or web address]: Argelia Collins on 09/02/18 4:49 pm * Is the patient Alert and Oriented? Yes * How many steps to enter\\exit or inside your home? Ramp/0 * PCP Dr. العلي * Pharmacy [facility] * Preadmission Environment Home Alone * ADLs Partial Dependent * Partial ADLs (Assistance needed) Ambulation Bathing Medication Management * Equipment Enteral Feeding and Supplies Nebulizer Other Oxygen Rolling Walker Wheelchair * Other Equipment Portable oxygen Medical Alert Button * List name and contact numbers for known caregivers / representatives who currently or will assist patient after discharge: Daisy Solis - DTR - [phone] Kenney Knapp Son (POA - [phone] * Verbal permission to speak to the caregivers and representatives has been obtained from the patient. Yes * Community resources currently utilized Home Health Infusion Services * Please name any agencies selected above. [facility] for tube feeding and supplies [facility] is DME for oxygen/nebulizer supplies * Additional services required to return to the preadmission environment? No * Can the patient safely return to the preadmission environment? Yes * Has this patient been hospitalized within the prior 30 days at any hospital? No Last DP export: 09/02/18 3:47 p Patient Name: LIZ JOYCE Page 20220 at 1655 All edits/amendments must be made on the electronic document DICTATION DATE: 09/02/181654 WINDOWS SUPPORT ENGINEER: STEPHEN 09/02/181654 RPT#: [id number] DC DATE: STATUS: ADM IN [facility] [address] [place] [address] END OF REPORT
[2018-09-02 17:09] VITALS: BP 146/66
--- NOTE | 2018-09-02 18:55 | NUR ---
PATIENT IN BED WITH IV INTACT. NO COMPLAINTS OR SIGNS OF DISTRESS. FEEDING PUMP AND OSMOLITE AT BEDSIDE FOR TONIGHT. PATIENT CALL LIGHT WITHIN REACH.
--- NOTE | 2018-09-02 20:00 | NUR ---
ASSESSSMENT PER FLOWSHEET. IV PATENT RT IFP OF NS AT 10CC'S/HR O2 ON 3L/M PER NC. SCD'S ON PEG TUBE PATENT AND CLAMPED LEFT UPPER ABDOMEN. STARTED TUBE FEEDING OF OSMOLYTE 1.5 AT 90CC'S/HR. PER PEG TUBE. HOB UP 45 DEGREES. SR UP X2 CALL LIGHT WITHIN REACH.
[2018-09-02 21:02] VITALS: BP 163/72
--- NOTE | 2018-09-02 21:30 | NUR ---
MEDS GIVEN PER MAR.
--- NOTE | 2018-09-02 23:00 | NUR ---
UP WITH HELP VOIDS WELL .
--- NOTE | 2018-09-03 01:40 | NUR ---
EYES CLOSED RESPIRATIONS WITH EASE AND UNLABORED.
[2018-09-03 04:46] VITALS: BP 135/69
[2018-09-03 09:18] LABS: HEMATOCRIT 31.7 % (36.0-48.0); HEMOGLOBIN 9.4 g/dL (12-16); LYMPHOCYTES 24.1 % (15-50); MCH 21.8 pg (26.0-34.0); MCHC 29.7 g/dL (31.0-37.0); MCV 73.5 fL (80.0-100.0); MEAN PLATELET VOLUME 9.4 fL (7.4-10.4); NEUTROPHILS 63.5 % (40-80); PLATELET COUNT 365 10x3/uL (130-400); RBC 4.31 10x6/uL (4.00-5.40); RDW 15.2 % (11.5-14.5); WBC 3.6 10x3/uL (4.8-10.8)
[2018-09-03 09:27] LABS: ANION GAP 13.8 mmol/L (8-16); CALCIUM 8.5 mg/dL (8.5-10.1); CARBON DIOXIDE 26.9 mmol/L (21.0-32.0); CREATININE - SERUM 0.8 mg/dL (0.6-1.3); POTASSIUM - SERUM 3.7 mmol/L (3.5-5.1)
[2018-09-03 09:35] VITALS: BP 149/69
--- NOTE | 2018-09-03 13:32 | NUR ---
PT DAUGHTER STATED PT WAS ADVISED BY DR SANCHEZ THAT SHE CAN BE DC TODAY, ADVISED WE STILL NEEDED DC ORDERS FROM DR SAM'S OFFICE, NO OTHER NEEDS AT THIS TIME, CONTINUE WITH PLAN OF CARE
--- NOTE | 2018-09-03 15:17 | NUR ---
PT SITTING IN CHAIR AT BEDSIDE STATES STILL WAITING ON DR SAM, ADVISED I CALLED DR SAM'S OFICE AND SPOKE TO DR ZAMUDIO AND DR SAM IS IN HOSPITAL BUT IF HE DOESN NOT COME BY BEFORE DR ZAMUDIO MAKES IT AFTER CLINIC THEN DR ZAMUDIO WILL LOOK AT CHART, NO OTHER NEEDS AT THIS TIME, CONTINUE WITH PLAN OF CARE
--- NOTE | 2018-09-03 15:26 | MORECARE ---
CASE MANAGEMENT DISCHARGE SUMMARY PATIENT: LIZ JOYCE UNIT: [id number] ADM DATE: 09/01/18 AGE: 83 : 37 SEX: F ROOM/BED: D.2224 AUTHOR: CELESTE,DOC PHYSICIAN: REFERRING PHYSICIAN: KEEGAN SAM MD DATE OF SERVICE: 09/03/18 Discharge Plan Patient Name: LIZ JOYCE Facility: [facility]:[place] : 1935 Planned Disposition: Home with Home Health Anticipated Discharge Date: Discharge Date: Expected LOS: Initial Reviewer: [email or web address] Initial Review Date: 09/02/2018 Generated: 09/03/18 4:26 pm Comments DCP- Discharge Planning Updated by [email or web address]: Argelia Collins on 09/02/18 3:[address] Patient Name: LIZ JOYCE Admission Status: Elective Accout number: [id number] Admission Date: 09-01-2018 : 1935 Admission Diagnosis: Attending: KEEGAN SAM Current LOS: 1 Anticipated DC Date: Planned Disposition: Home with Home Health Primary Insurance: [facility] MEDICARE SOLUTIONS Discharge Planning Comments: CM met with patient to discuss discharge planning/needs, her daughter and son are in the room and verbal permission received to discuss discharge planning in their presence. She lives alone, daughter states "I live 40 feet away". States daughter assists her with bathing, medication management and with transportation. States she has [facility] for nursing and PT. I discussed the availability of inpatient rehab, skilled, resumption of home health and additional DME. She states her plan is to return home with the resumption of [facility], choice form signed. She does receive her tube feeding and supplies in the mail from [facility]. Denies further needs at this time. No additional needs identified. CM will continue to follow and assist with discharge planning/needs. Chemistry Laboratory Technician: Argelia Collins DCPIA - Discharge Planning Initial Assessment Updated by [email or web address]: Argelia Collins on 09/02/18 4:49 pm * Is the patient Alert and Oriented? Yes * How many steps to enter\\exit or inside your home? Ramp/0 * PCP Dr. العلي * Pharmacy [facility] * Preadmission Environment Home Alone * ADLs Partial Dependent * Partial ADLs (Assistance needed) Ambulation Bathing Medication Management * Equipment Enteral Feeding and Supplies Nebulizer Other Oxygen Rolling Walker Wheelchair * Other Equipment Portable oxygen Medical Alert Button * List name and contact numbers for known caregivers / representatives who currently or will assist patient after discharge: Daisy Solis - DTR - [phone] Kenney Weems (POA - [phone] * Verbal permission to speak to the caregivers and representatives has been obtained from the patient. Yes * Community resources currently utilized Home Health Infusion Services * Please name any agencies selected above. [facility] for tube feeding and supplies [facility] is DME for oxygen/nebulizer supplies * Additional services required to return to the preadmission environment? No * Can the patient safely return to the preadmission environment? Yes * Has this patient been hospitalized within the prior 30 days at any hospital? No External Providers External Provider: [facility] Next Contact Date: Service Request Date: Service Type: Resolution: Reviewer: Comments: Last DP export: 09/02/18 3:55 p Patient Name: LIZ JOYCE Page 97583 at 1526 All edits/amendments must be made on the electronic document DICTATION DATE: 09/03/181525 GRINDER OPERATOR SURFACE TOOL: STEPHEN 09/03/181525 RPT#: [id number] DC DATE: STATUS: ADM IN [facility] [address] [place] [address] END OF REPORT
--- NOTE | 2018-09-03 15:35 | MORECARE ---
CASE MANAGEMENT DISCHARGE SUMMARY PATIENT: LIZ JOYCE UNIT: [id number] ADM DATE: 09/01/18 AGE: 83 : 37 SEX: F ROOM/BED: D.2224 AUTHOR: LETICIA ALONSO PHYSICIAN: REFERRING PHYSICIAN: KEEGAN SAM MD DATE OF SERVICE: 09/03/18 Discharge Plan Patient Name: LIZ JOYCE Facility: [facility]:[place] : 1935 Planned Disposition: Home with Home Health Anticipated Discharge Date: Discharge Date: Expected LOS: Initial Reviewer: [email or web address] Initial Review Date: 09/02/2018 Generated: 09/03/18 4:35 pm Comments DCP- Discharge Planning Updated by [email or web address]: Argelia Collins on 09/03/18 2:[address] العلي to discharge this evening. I spoke with Bebe at [facility] and informed her and orders and clinical faxed. I spoke with her daughter (Vanessa) and informed of discharge expected today. CM will continue to follow and assist with discharge planning/needs. DCP- Discharge Planning Updated by [id number]: Argelia Collins on 09/02/18 3:[address] Patient Name: LIZ JOYCE Admission Status: Elective Accout number: [id number] Admission Date: 09-01-2018 : 1935 Admission Diagnosis: Attending: KEEGAN SAM Current LOS: 1 Anticipated DC Date: Planned Disposition: Home with Home Health Primary Insurance: [facility] MEDICARE SOLUTIONS Discharge Planning Comments: CM met with patient to discuss discharge planning/needs, her daughter and son are in the room and verbal permission received to discuss discharge planning in their presence. She lives alone, daughter states "I live 40 feet away". States daughter assists her with bathing, medication management and with transportation. States she has [facility] for nursing and PT. I discussed the availability of inpatient rehab, skilled, resumption of home health and additional DME. She states her plan is to return home with the resumption of [facility], choice form signed. She does receive her tube feeding and supplies in the mail from [facility]. Denies further needs at this time. No additional needs identified. CM will continue to follow and assist with discharge planning/needs. Nut Threader: Argelia Collins DCPIA - Discharge Planning Initial Assessment Updated by [email or web address]: Argelia Collins on 09/02/18 4:49 pm * Is the patient Alert and Oriented? Yes * How many steps to enter\\exit or inside your home? Ramp/0 * PCP Dr. العلي * Pharmacy [facility] * Preadmission Environment Home Alone * ADLs Partial Dependent * Partial ADLs (Assistance needed) Ambulation Bathing Medication Management * Equipment Enteral Feeding and Supplies Nebulizer Other Oxygen Rolling Walker Wheelchair * Other Equipment Portable oxygen Medical Alert Button * List name and contact numbers for known caregivers / representatives who currently or will assist patient after discharge: Daisy Solis - DTR - [phone] Kenney Bazan - Son (POA - [phone] * Verbal permission to speak to the caregivers and representatives has been obtained from the patient. Yes * Community resources currently utilized Home Health Infusion Services * Please name any agencies selected above. [facility] for tube feeding and supplies [facility] is DME for oxygen/nebulizer supplies * Additional services required to return to the preadmission environment? No * Can the patient safely return to the preadmission environment? Yes * Has this patient been hospitalized within the prior 30 days at any hospital? No Last DP export: 09/03/18 2:26 p Patient Name: LIZ JOYCE Page 48156 at 1535 All edits/amendments must be made on the electronic document DICTATION DATE: 09/03/18 1535 VOICE TEACHER: STEPHEN 09/03/18 1535 RPT#: [id number] DC DATE: STATUS: ADM IN [facility] [address] [place] [address] END OF REPORT
[2018-09-03 16:11] LABS: ACID FAST SMEAR Negative (()); AFB SPECIMEN PROCESSING Concentration (()); AFB SPECIMEN PROCESSING Tissue Grinding (())
[2018-09-03 17:46] VITALS: BP 131/63
--- NOTE | 2018-09-03 18:00 | NUR ---
SALINE FLUSHED PORT AND HEPARIN FLUSHED RIGHT BEFORE REMOVING ACCESS. PATIENT TOLERATED WITH SMALL AMOUNT OF PAIN. DRESSING PLACED OVER PORT AND ASKED OT LEAVE ON FOR AT LEAST 24 HOURS. VERBALIZED UNDEDSTANDING. NO QUESTIONS AT THIS TIME. CALL LIGHT WITHIN REACH.
--- NOTE | 2018-09-03 18:39 | NUR ---
DISCHARGE INSTRUCTIONS GIVEN AND QUESTIONS ANSWERED, SHONA HERNANDEZ DEACCESSED FABIOLA RINCON IN WC WITH BELONGINGS
[2018-09-04 13:15] LABS: FUNGUS STAIN Final report (())
== END 2018-09-03 18:41 | disposition home health service (06) | DRG 191 ==
LOC: D.SDCHOLD 11:47 → D.MS 11:47
PROVIDERS: ADMIT Family Medicine; ATTEND Family Medicine
PROC: 0B9J8ZX Drainage of Left Lower Lung Lobe, Via Natural or Artificial Opening Endoscopic, Diagnostic (ICD-10-PCS; principal; 2018-09-01)
PROC: 0BDJ8ZX Extraction of Left Lower Lung Lobe, Via Natural or Artificial Opening Endoscopic, Diagnostic (ICD-10-PCS; 2018-09-01)
PROC: 0D2DXUZ Change Feeding Device in Lower Intestinal Tract, External Approach (ICD-10-PCS; 2018-09-03)
DX: J47.1 Bronchiectasis with (acute) exacerbation (principal); J96.11 Chronic respiratory failure with hypoxia; J90 Pleural effusion, not elsewhere classified; K94.13 Enterostomy malfunction; J47.0 Bronchiectasis with acute lower respiratory infection; J18.9 Pneumonia, unspecified organism; I48.91 Unspecified atrial fibrillation; I10 Essential (primary) hypertension; E78.5 Hyperlipidemia, unspecified; K21.9 Gastro-esophageal reflux disease without esophagitis; K31.84 Gastroparesis; K22.2 Esophageal obstruction

== ENCOUNTER 2019-01-30 18:06 | Inpatient (IN) | payer MEDICARE ==
[~2019-01-30] VITALS: Ht 175.3 cm; Wt 54.6 kg
[~2019-01-30 18:06] MED LIST changes: +LINZESS72 MCG PO
[2019-01-30 18:31] LABS: BASOPHILS 0.3 % (0-2); EOSINOPHILS 4.2 % (0-7); HEMATOCRIT 36.1 % (36.0-48.0); HEMOGLOBIN 10.6 g/dL (12-16); IMMATURE GRANULOCYTES 0.4 % (0-5); LYMPHOCYTES 26.5 % (15-50); MCH 22.2 pg (26.0-34.0); MCHC 29.4 g/dL (31.0-37.0); MCV 75.7 fL (80.0-100.0); MEAN PLATELET VOLUME 10.6 fL (7.4-10.4); MONOCYTES 6.6 % (2-11); RBC 4.77 10x6/uL (4.00-5.40); RDW 17.2 % (11.5-14.5); WBC 10.5 10x3/uL (4.8-10.8)
[2019-01-30 18:32] LABS: PLATELET COUNT 459 10x3/uL (130-400)
[2019-01-30 18:42] LABS: APPEARANCE CLOUDY (CLEAR); BILIRUBIN NEGATIVE (NEGATIVE); COLOR RED (YELLOW); GLUCOSE NEGATIVE (NEGATIVE); KETONE NEGATIVE (NEGATIVE); NITRITE NEGATIVE (NEGATIVE); PROTEIN 3+ mg/dL (NEGATIVE); UROBILINOGEN NORMAL (NORMAL); WHITE CELLS - URINE 0-5 /hpf (0-5)
[2019-01-30 18:43] LABS: EPITHELIAL CELLS 0-5 /hpf (0-5); RED CELLS - URINE >50 /hpf (0-5)
[2019-01-30 18:43] LABS: ANION GAP 14.4 mmol/L (8-16); BILIRUBIN - TOTAL 0.21 mg/dL (0.2-1.3); CALCIUM 8.8 mg/dL (8.5-10.1); CARBON DIOXIDE 25.2 mmol/L (21.0-32.0); CREATININE - SERUM 0.8 mg/dL (0.6-1.3); POTASSIUM - SERUM 3.6 mmol/L (3.5-5.1); PROTEIN - SERUM 7.5 g/dL (6.4-8.2)
[2019-01-30 20:00] VITALS: BP 160/63
--- NOTE | 2019-01-30 20:15 | NUR ---
PT STATES THAT IS HER NORMAL TIME FOR UPDRAFT PT C/O FEELING SOB. INFORMED.
--- NOTE | 2019-01-30 22:00 | NUR ---
ADMIT TO ROOM 2125 FROM ER VIA STRETCHER. ALERT/ORIENTED. SOB/O2 @ 2L/NC CONTINUED. PT WITH PAIN TO ABDOMEN/RLQ. DRESSING IN PLACE TO LLQ ABDOMEN WHERE PT HAS HAD A PEG TUBE REMOVED. ADMISSION HISTORY AND ASSESSMENT COMPLETED. HOME MEDS REVIEWED.
[2019-01-30 22:27] VITALS: BP 160/76
[2019-01-30 23:33] VITALS: BP 160/76; BMI 18.5
[2019-01-30 23:51] VITALS: BP 152/70
--- NOTE | 2019-01-31 03:16 | NUR ---
PT MEDICATED WITH ZOFRAN/TORADOL 15MG SIVP FOR ABDOMINAL PAIN AT 0130. SHE HAS BEEN RESTING WITH EYES CLOSED ON SUBSEQUENT ROUNDS. PT HAS ALSO BEEN ASSISTED UP X 2 TO USE BSC AND VOIDED BLOODY URINE EACH TIME.
[2019-01-31 05:55] VITALS: BP 141/56
--- NOTE | 2019-01-31 07:53 | NUR ---
AWAKE AND ALERT. TELEMERTY SHOWS SR. O2 AT 2 L/M PER NC. LUNGS WITH CRACKLES. IV TO RIGHT CHEST WALL. LEFT ABD HAS A DRSG TO OLD PEG SITE. DENIES ANY NEEDS AT PRESENT TIME. WILL MONITOR
[2019-01-31 08:08] VITALS: BP 130/61
[2019-01-31 11:40] VITALS: BP 177/72
[2019-01-31 16:52] VITALS: BP 175/69
[2019-01-31 20:00] VITALS: BP 142/73
--- NOTE | 2019-01-31 20:17 | NUR ---
INITIAL ROUNDS COMPLETED AT 1910 HRS. PT DENIED ANY DISCOMFORT. ASSESSMENT COMPLETED AT 1930. SR PER CM HR 92. PT SOB WITH EXERTION. IV TO R CHEST INFUSAPORT WITH NS AT 75CC/HR. LUNGS DIMINISHED IN BASES BILAT. GARCIA. DRESSING OVER OLD L PEG SITE CLEAN, DRY AND INTACT. SR UP X2, CALL LIGHT WITHIN REACH.
--- NOTE | 2019-01-31 21:13 | NUR ---
PT ASSISTED TO BSC. VOIDED 250C OF YELLOW URINE. ASSISTED BACK TO BED. PT PRETTY SOB WITH EXERTION. PM MEDS GIVEN. TORADOL IVP GIVNE FOR C/O FLANK PAIN. SR UP X2, CALL LIGHT WITHIN REACH.
[2019-02-01] VITALS: BP 147/63
--- NOTE | 2019-02-01 01:01 | NUR ---
PT RESTING WITH EYES CLOSED. RESP EVEN AND REGULAR. SR UP X2, CALL LIGHT WITHIN REACH.
--- NOTE | 2019-02-01 02:46 | NUR ---
PT RESTING WITH EYES CLOSED. RESP EVEN AND REGULAR. SR UP X2, CALL LIGHT WITHIN REACH.
[2019-02-01 04:00] VITALS: BP 164/76
--- NOTE | 2019-02-01 04:59 | NUR ---
PT RESTING WITH EYES CLOSED. RESP EVEN AND REGULAR. SR UP X2, CALL LIGHT WITHIN REACH.
[2019-02-01 06:47] LABS: BASOPHILS 0.4 % (0-2); EOSINOPHILS 6.8 % (0-7); HEMATOCRIT 31.6 % (36.0-48.0); HEMOGLOBIN 9.5 g/dL (12-16); LYMPHOCYTES 23.1 % (15-50); MCHC 30.1 g/dL (31.0-37.0); MEAN PLATELET VOLUME 10.7 fL (7.4-10.4); MONOCYTES 8.3 % (2-11); NEUTROPHILS 61.4 % (40-80); RBC 4.32 10x6/uL (4.00-5.40)
[2019-02-01 06:58] LABS: CALCIUM 8.4 mg/dL (8.5-10.1); CARBON DIOXIDE 25.9 mmol/L (21.0-32.0); CHLORIDE - SERUM 108 mmol/L (98-107); CREATININE - SERUM 0.7 mg/dL (0.6-1.3); GLUCOSE 86 mg/dL (74-106); SODIUM 144 mmol/L (136-145); eGFR NON AFRICAN AMERICAN 85 mL/min (90-120)
[2019-02-01 07:02] LABS: CALC OSMOLALITY 283 mosm/kg (275-300); UREA NITROGEN 7 mg/dL (7-18)
[2019-02-01 07:05] LABS: POTASSIUM - SERUM 2.8 mmol/L (3.5-5.1)
[2019-02-01 07:08] LABS: MCV 73.1 fL (80.0-100.0); PLATELET COUNT 340 10x3/uL (130-400); WBC 5.3 10x3/uL (4.8-10.8)
--- NOTE | 2019-02-01 07:45 | NUR ---
REPORT RECIEVED. PT SITTING FOWLERS IN BED WITH DAUGHTER AT BEDSIDE. SHE HAS A R CHEST PORT INFUSING NS @ 75. RR EVEN AND UNLABORED. NO DISTRESS NOTED. BED LOCKED AND IN LOWEST POSITION. NO DISTRES NOTED. CALL LIGHT WITHIN REACH. WILL CTM
[2019-02-01 08:17] VITALS: BP 161/68
[2019-02-01 12:10] VITALS: BP 143/71
[2019-02-01 13:33] VITALS: BMI 18.4
--- NOTE | 2019-02-01 13:40 | NUR ---
I have reviewed this patient and I concur with the Shift Assessment completed by the Licensed Practical Nurse today this shift.
[2019-02-01 15:31] VITALS: BP 158/69
[2019-02-01 16:40] VITALS: Ht 175.3 cm; Wt 54.6 kg
--- NOTE | 2019-02-01 19:15 | NUR ---
AT REST IN BED BED LOW AND LOCKED PT AROUSES AND DENIES NEEDS AT THIS TIME CALL LIGHT IS IN REACH
[2019-02-01 20:00] VITALS: BP 161/77
[2019-02-02 04:00] VITALS: BP 155/74
--- NOTE | 2019-02-02 07:40 | NUR ---
ASSESSMENT DONE. DENIES NEEDS.
--- NOTE | 2019-02-02 08:30 | NUR ---
TO OR PER BED
--- NOTE | 2019-02-02 10:30 | NUR ---
RETURN FROM OR PER BED. SM BANDAIDES TO ADB NOTED C/D/I. STRINGS X2 FROM THE BLADDER NOTED AND TAPED TO THE ABD.
[2019-02-02 12:29] VITALS: BP 154/71
--- NOTE | 2019-02-02 12:39 | OP ---
PATIENT NAME: LIZ JOYCE MEDICAL RECORD: [id number] :[birth year] LOCATION:D. D.2125 ADMISSION DATE:01/30/19 SURGEON: SUKUMAR LAMAR MD DATE OF OPERATION: 02/02/2019 SURGEON: Sukumar Lamar MD ANESTHESIA: General anesthesia by Leslie Olivares CRNA. DIAGNOSIS: Bilateral distal ureteral stones. A 3 mm in the right distal ureter, this stone had passed spontaneously. A 4-mm stone in the distal left ureter. PROCEDURES: Cystoscopy, bilateral retrograde pyelograms, bilateral ureteroscopy, left ureteral stone extraction, bilateral stent insertion 6-Northern Irish x 24 cm with string attached. BLOOD LOSS: None. FINDINGS: Single ureteral orifices on each side. No bladder tumors were seen. On retrograde pyelogram, there was rapid evacuation of the contrast from the right ureter. There was no hydronephrosis on the right side. On the left side, there was hydroureteronephrosis down to a point in the distal ureter. Ureteroscopy revealed this point to be a radiolucent stone. The stones are all radiolucent. CLINICAL HISTORY: This is an 83-year-old female, who came to the hospital with gross hematuria and right flank pain. 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 Today, Dr. Granger is performing a laparoscopic small bowel resection with primary anastomosis to repair the enterocutaneous fistula. Her CT scan shows stones in the distal ureter bilaterally. At the same time as Dr. Granger's surgery, she wished to have the stones removed. Dr. Granger had already done his surgery and she was given preoperative antibiotics by Dr. Granger. DESCRIPTION OF PROCEDURE: She was maintained under general anesthesia and transferred to the cystoscopy table. Fluoroscopy did not reveal any radiodense stones. She was placed into lithotomy position and prepped and draped. Cystoscopic findings are as outlined above. I performed retrograde pyelograms to see if there was any obstruction. There was obstruction on the left side. A Sensor wire was placed through the lumen of the open-ended ureteral catheter up into the left renal pelvis. The ureteral catheter was then removed entirely, leaving the Sensor wire in place. Over the wire, we inserted an 18-Northern Irish x 4-cm long ureteral dilation balloon. The left ureteral orifice was dilated to 12 atmospheres of pressure for a few seconds and then the balloon was deflated. Once the balloon was removed, leaving the wire in place, the rigid ureteroscope was then introduced. We found the stone. A 0-tip 4-wire basket 1.9-Northern Irish in size was placed around the stone and stone was extracted and sent to pathology. The stone was actually composed of smaller fragments, which clumped together. The biggest fragment was obtained and sent for stone analysis. The smaller fragments were irrigated out of the ureter. Ureteroscopy up to the mid ureter level showed no signs of any further stone to be present. The ureteroscope was then removed. Over the Sensor wire, we inserted a 6-Northern Irish x 24-cm ureteral stent. Once the stent was in correct position, the wire was withdrawn entirely. The distal end of the stent was pushed into the bladder using the pusher. The OPERATIVE REPORT [id number] LIZ JOYCE string on the distal end of the stent was maintained. It hangs out of the urethra. It was placed in the suprapubic region. The same procedure was repeated on the right side. No stone was seen on the right side. A 6-Northern Irish x 24-cm ureteral stent was placed on the right side. Again, the string hangs out of the urethra and it was placed in the suprapubic area and both strings were taped to the suprapubic area with a piece of Tegaderm. The bladder was emptied through the cystoscope sheath and then the scope was removed. The patient was awakened and brought to the recovery room. TRANSINT:[id number] Voice Confirmation ID: [id number] DOCUMENT ID: [id number] SUKUMAR LAMAR MD at 1239 CC: [id number] DICTATION DATE: 02/02/19 1119 BLEACH PLANT OPERATOR: 02/02/19 1133 ADM IN [facility] [address] [place] [address]
[2019-02-02 14:56] VITALS: BP 129/69
--- NOTE | 2019-02-02 15:36 | NUR ---
I have reviewed this patient and I concur with the Shift Assessment completed by the Licensed Practical Nurse today this shift.
--- NOTE | 2019-02-02 16:55 | MORECARE ---
CASE MANAGEMENT DISCHARGE SUMMARY PATIENT: LIZ JOYCE UNIT: [id number] ADM DATE: 01/30/19 AGE: 83 : 37 SEX: F ROOM/BED: D.7330 AUTHOR: LETICIA ALONSO PHYSICIAN: REFERRING PHYSICIAN: SELAM PUGH MD DATE OF SERVICE: 02/02/19 Discharge Plan Patient Name: LIZ JOYCE Facility: [facility]:[place] : 1935 Planned Disposition: Home with Home Health Anticipated Discharge Date: Discharge Date: Expected LOS: Initial Reviewer: [email or web address] Initial Review Date: 02/02/2019 Generated: 02/02/19 5:55 pm DCPIA - Discharge Planning Initial Assessment Updated by [email or web address]: Mundo Finley on 02/02/19 4:54 pm * Is the patient Alert and Oriented? Yes * How many steps to enter\exit or inside your home? NONE * PCP DR. SAM * Pharmacy [facility] * Preadmission Environment Home Alone * ADLs Partial Dependent * Partial ADLs (Assistance needed) Bathing Medication Management * Equipment Bedside Commode Cane Nebulizer Other Oxygen Rolling Walker Wheelchair * Other Equipment HOME AND PORTABLE OXGYEN [facility] LIFELINE EMER[employer]Y PENDANT VEST FOR PERCUSSION THERAPY * List name and contact numbers for known caregivers / representatives who currently or will assist patient after discharge: KIM MILLER, DTR, BRIE MILLER, SON, * Verbal permission to speak to the caregivers and representatives has been obtained from the patient. Yes * Community resources currently utilized Home Health * Please name any agencies selected above. [facility], NURSING ONLY * Additional services required to return to the preadmission environment? No * Can the patient safely return to the preadmission environment? Yes * Has this patient been hospitalized within the prior 30 days at any hospital? No Patient Name: LIZ JOYCE Page 69535 at 165 All edits/amendments must be made on the electronic document DICTATION DATE: 02/02/194 RN CHARGE: STEPHEN 02/02/194 RPT#: [id number] DC DATE: STATUS: ADM IN [facility] [address] [place] [address] END OF REPORT
--- NOTE | 2019-02-02 17:05 | MORECARE ---
CASE MANAGEMENT DISCHARGE SUMMARY PATIENT: LIZ JOYCE UNIT: [id number] ADM DATE: 01/30/19 AGE: 83 : 37 SEX: F ROOM/BED: D.0665 AUTHOR: CELESTE,DOC PHYSICIAN: REFERRING PHYSICIAN: SELAM PUGH MD DATE OF SERVICE: 02/02/19 Discharge Plan Patient Name: LIZ JOYCE Facility: [facility]:[place] : 1935 Planned Disposition: Home with Home Health Anticipated Discharge Date: Discharge Date: Expected LOS: Initial Reviewer: [id number] Initial Review Date: 02/02/2019 Generated: 02/02/19 6:05 pm Comments DCP- Discharge Planning Updated by [id number]: Mundo Finley on 02/02/19 3:[address] Patient Name: LIZ JOYCE Admission Status: ER Accout number: [id number] Admission Date: 01-30-2019 : 1935 Admission Diagnosis: Attending: SELAM PUGH Current LOS: 3 Anticipated DC Date: Planned Disposition: Home with Home Health Primary Insurance: [facility] MEDICARE SOLUTIONS PLANNED EXTERNAL PROVIDER: [facility] Discharge Planning Comments: CM MET WITH PT AND SOHAM IN ROOM TO DISCUSS DISCHARGE PLANNING AND NEEDS. LIZ JOYCE provided verbal consent to discuss current and ongoing needs with/in the presence of: KIM, DAUGHTER. PT REPORTS LIVING AT HOME ALONE NEXT DOOR TO HER DAUGHTER. PT HAS FAMILY ASSISTANCE FOR BATHING AND MEDICATION MANAGEMENT. PT HAS BEDSIDE COMMODE, CANE, NEBULIZER, HOME AND PORTABLE OXYGEN, ROLLING WALKER AND WHEELCHAIR FROM [facility]. PT HAS HOME HEALTH FOR NURSING WITH [facility]. CM DISCUSSED AVAILABILITY OF HOME HEALTH, REHAB SERVICES AND MEDICAL EQUIPMENT. PT DENIES DISCHARGE NEEDS OTHER THAN HAVING HOME HEALTH RESUMED, CHOICE SIGNED. PT REPORTS HER DAUGHER WILL PICK HER UP FOR DISCHARGE HOME. CM SPOKE TO DAVID OF [facility] WHO INFORMED CM THAT THEY PLAN TO RESUME HOME HEALTH SERVICES WHEN PT DISCHARGES HOME. FOR RESUMPTION OF HOME HEALTH AT DISCHARGE, FAX DISCHARGE INFORMATION TO [facility] AT [phone], NOTIFY [place] AT [phone]. CM TO CONTINUE TO FOLLOW AND ASSIST NEEDED. Grain Elevator Clerk: Mundo Sipsey DCPIA - Discharge Planning Initial Assessment Updated by [id number]: Mundo Finley on 02/02/19 4:54 pm * Is the patient Alert and Oriented? Yes * How many steps to enter\exit or inside your home? NONE * PCP DR. SAM * Pharmacy [facility] * Preadmission Environment Home Alone * ADLs Partial Dependent * Partial ADLs (Assistance needed) Bathing Medication Management * Equipment Bedside Commode Cane Nebulizer Other Oxygen Rolling Walker Wheelchair * Other Equipment HOME AND PORTABLE OXGYEN [facility] LIFELINE EMERGENCY PENDANT VEST FOR PERCUSSION THERAPY * List name and contact numbers for known caregivers / representatives who currently or will assist patient after discharge: KIM MILLER, DTR, BRIEShaneka MILLER, SON, * Verbal permission to speak to the caregivers and representatives has been obtained from the patient. Yes * Community resources currently utilized Home Health * Please name any agencies selected above. [facility], NURSING ONLY * Additional services required to return to the preadmission environment? No * Can the patient safely return to the preadmission environment? Yes * Has this patient been hospitalized within the prior 30 days at any hospital? No Coverage Notice Reviewer: [id number] - Mundo Finley Notice Issued Date-Time: 02/02/2019 16:40 Notice Type: Patient Choice Letter Notice Delivered To: Patient Relationship to Patient: Alcohol Law Enforcement Agent Name: Delivery Method: HAND - Hand Delivered Marcela Days: Prior Verbal Notification: Recipient Understood Notice: Yes Recipient Signature: Yes Med Rec Note Co-signed by Attending: [facility]age [facility] Last DP export: 02/02/19 3:55 p Patient Name: LIZ JOYCE Page [phone] at 1705 All edits/amendments must be made on the electronic document DICTATION DATE: 02/02/191704 CALKER: STEPHEN 02/02/191704 RPT#: [id number] [place] DATE: STATUS: ADM IN [facility] [address] [place] [address] END OF REPORT
--- NOTE | 2019-02-02 17:41 | NUR ---
WITHOUT CHANGES OR DISTRESS NOTED AT THIS TIME. FAMILY AT SIDE.
--- NOTE | 2019-02-02 19:30 | NUR ---
ALERT ASSISTED UP AT THIS TIME TO BSC URINE IS BLOODY TOLERATED WELL TO BED WITH NO INCIDENT. BED LOW AND LOCKED WITH CALL LIGHT IN PLACE DRSG X5 TO ABD DRY AND INTACT
[2019-02-02 20:00] VITALS: BP 133/57
--- NOTE | 2019-02-03 02:15 | NUR ---
I have reviewed this patient and I concur with the Shift Assessment completed by the Licensed Practical Nurse today this shift.
[2019-02-03 04:00] VITALS: BP 128/52
[2019-02-03 08:47] VITALS: BP 145/65
[2019-02-03 08:53] VITALS: BP 145/65
--- NOTE | 2019-02-03 12:41 | NUR ---
I have reviewed this patient and I concur with the Shift Assessment completed by the Licensed Practical Nurse today this shift.
[2019-02-03 12:52] VITALS: BP 139/54
--- NOTE | 2019-02-03 13:25 | NUR ---
RIGHT CHEST IP DRESSING CHANGED USING STERILE TECHNIQUE.
--- NOTE | 2019-02-03 15:15 | NUR ---
PATIENT ATTEMPTED METANEB WITH TX BUT STATED IT INCREASED HER POSTOP PAIN
[2019-02-03 16:27] VITALS: BP 137/51
--- NOTE | 2019-02-03 17:13 | MORECARE ---
CASE MANAGEMENT DISCHARGE SUMMARY PATIENT: LIZ JOYCE UNIT: [id number] ADM DATE: 01/30/19 AGE: 83 : 37 SEX: F ROOM/BED: D.5799 AUTHOR: CELESTE,DOC PHYSICIAN: REFERRING PHYSICIAN: SELAM PUGH MD DATE OF SERVICE: 02/03/19 Discharge Plan Patient Name: LIZ JOYCE Facility: [facility]:[place] : 1935 Planned Disposition: Home with Home Health Anticipated Discharge Date: Discharge Date: Expected LOS: Initial Reviewer: [id number] Initial Review Date: 02/02/2019 Generated: 02/03/19 6:12 pm Comments DCP- Discharge Planning Updated by [id number]: Mundo Finley on 02/03/19 4:[address] Patient Name: LIZ JOYCE Encounter No: [id number] : 1935 Primary Insurance: [employer] MEDICARE SOLUTIONS Anticipated DC Date: Planned Disposition: Home with Home Health External Planned Provider: [facility] Discharge Planning Comments: DR. LAMAR INFORMED CM THAT AT DISCHARGE, PT WILL NEED A FOLLOW UP APPOINTMENT WITH HIM IN ONE WEEK FOR REMOVAL OF STENTS. FOR RESUMPTION OF HOME HEALTH AT DISCHARGE, FAX DISCHARGE INFORMATION TO [facility] AT [phone], NOTIFY [facility] AT [phone]. CM TO CONTINUE TO FOLLOW AND ASSIST NEEDED. Jewelry Manager: Mundo Finley DCP- Discharge Planning Updated by [id number]: Mundo Finley on 02/02/19 3:[address] Patient Name: LIZ JOYCE Admission Status: ER Accout number: [id number] Admission Date: 01-30-2019 : 1935 Admission Diagnosis: Attending: SELAM PUGH Current LOS: 3 Anticipated DC Date: Planned Disposition: Home with Home Health Primary Insurance: [employer] MEDICARE SOLUTIONS PLANNED EXTERNAL PROVIDER: [facility] Discharge Planning Comments: CM MET WITH PT AND SOHAM IN ROOM TO DISCUSS DISCHARGE PLANNING AND NEEDS. LIZ JOYCE provided verbal consent to discuss current and ongoing needs with/in the presence of: KIM, DAUGHTER. PT REPORTS LIVING AT HOME ALONE NEXT DOOR TO HER DAUGHTER. PT HAS FAMILY ASSISTANCE FOR BATHING AND MEDICATION MANAGEMENT. PT HAS BEDSIDE COMMODE, CANE, NEBULIZER, HOME AND PORTABLE OXYGEN, ROLLING WALKER AND WHEELCHAIR FROM [facility]. PT HAS HOME HEALTH FOR NURSING WITH MARG[facility]. CM DISCUSSED AVAILABILITY OF HOME HEALTH, REHAB SERVICES AND MEDICAL EQUIPMENT. PT DENIES DISCHARGE NEEDS OTHER THAN HAVING HOME HEALTH RESUMED, CHOICE SIGNED. PT REPORTS HER DAUGHER WILL PICK HER UP FOR DISCHARGE HOME. CM SPOKE TO DAVID OF [facility] WHO INFORMED CM THAT THEY PLAN TO RESUME HOME HEALTH SERVICES WHEN PT DISCHARGES HOME. FOR RESUMPTION OF HOME HEALTH AT DISCHARGE, FAX DISCHARGE INFORMATION TO [facility] AT [phone], NOTIFY MARG[facility] AT [phone]. CM TO CONTINUE TO FOLLOW AND ASSIST NEEDED. Jewelry Manager: Mundo Finley DCPIA - Discharge Planning Initial Assessment Updated by [email or web address]: Mundo Finley on 02/02/19 4:54 pm * Is the patient Alert and Oriented? Yes * How many steps to enter\exit or inside your home? NONE * PCP DR. SAM * Pharmacy [facility] * Preadmission Environment Home Alone * ADLs Partial Dependent * Partial ADLs (Assistance needed) Bathing Medication Management * Equipment Bedside Commode Cane Nebulizer Other Oxygen Rolling Walker Wheelchair * Other Equipment HOME AND PORTABLE OXGYEN [facility] LIFELINE EMERGENCY PENDANT VEST FOR PERCUSSION THERAPY * List name and contact numbers for known caregivers / representatives who currently or will assist patient after discharge: KIM ANGELA, DTR, BRIE MILLER, SON, * Verbal permission to speak to the caregivers and representatives has been obtained from the patient. Yes * Community resources currently utilized Home Health * Please name any agencies selected above. [facility], NURSING ONLY * Additional services required to return to the preadmission environment? No * Can the patient safely return to the preadmission environment? Yes * Has this patient been hospitalized within the prior 30 days at any hospital? No Coverage Notice Reviewer: [id number] - Mundo Finley Notice Issued Date-Time: 02/02/2019 16:40 Notice Type: Patient Choice Letter Notice Delivered To: Patient Relationship to Patient: Senior Speech Pathologist Name: Delivery Method: HAND - Hand Delivered Marcela Days: Prior Verbal Notification: Recipient Understood Notice: Yes Recipient Signature: Yes Med Rec Note Co-signed by Attending: Coverage Notice Comment: [facility] Last DP export: 02/02/19 4:05 p Patient Name: LIZ JOYCE Page [id number] at 1713 All edits/amendments must be made on the electronic document DICTATION DATE: 02/03/191711 HAZARDOUS MATERIALS DRIVER: STEPHEN 02/03/191711 RPT#: [id number] DC DATE: STATUS: ADM IN [facility] [address] [place] [address] END OF REPORT
--- NOTE | 2019-02-03 18:01 | NUR ---
SPOKE WITH LAB AND THEY STATED THE SPECIMENS HAVE ALREADY BEEN TOSSED SO CULTURES CAN NOT BE COLLECTED THAT ARE ORDERED.
--- NOTE | 2019-02-03 19:45 | NUR ---
EVENING ROUNDS COMPLETED. PT AAOX3, VSS, NO S/S OF DISTRESS. O2 @ 2L. RIGHT CHEST INFUSAPORT INTACT, WITH NSINFUSING @ 5OMLS/HR. NS ON TELE. PT DENIES ANY FURTHER NEEDS AT THIS TIME. WILL CTM. CL WITHIN REACH, BED IN LOW, SR UP X2.
[2019-02-03 19:53] VITALS: BP 143/50
--- NOTE | 2019-02-03 22:56 | NUR ---
PT C/O ABD PAIN AFTER BED BATH. ASSESSED PT ABD DRESSING AND ALL APPEARS C/D/I IV TORADOL GIVEN. ZOFRAN ALSO GIVEN BECAUSE PT STATES SHE OFTEN FEELS NAUSEATED WITH TORADOL IV. METOPROLOL GIVEN IV. ROLL DOUGH DIVIDER NOTIFIED. PT DENIES ANY FURTHER NEEDS AT THIS TIME. WILL CTM. CL WITHIN REACH, BED IN LOW, SR UP X2.
[2019-02-04] VITALS: BP 148/56
[2019-02-04 04:00] VITALS: BP 166/68
[2019-02-04 06:00] LABS: ANION GAP 13.2 mmol/L (8-16); CALCIUM 8.2 mg/dL (8.5-10.1); CREATININE - SERUM 0.8 mg/dL (0.6-1.3); POTASSIUM - SERUM 3.2 mmol/L (3.5-5.1)
[2019-02-04 06:07] LABS: BASOPHILS 0.3 % (0-2); EOSINOPHILS 4.4 % (0-7); HEMATOCRIT 26.2 % (36.0-48.0); HEMOGLOBIN 7.9 g/dL (12-16); IMMATURE GRANULOCYTES 0.2 % (0-5); LYMPHOCYTES 24.7 % (15-50); MCH 22.2 pg (26.0-34.0); MCHC 30.2 g/dL (31.0-37.0); MCV 73.6 fL (80.0-100.0); MEAN PLATELET VOLUME 10.8 fL (7.4-10.4); MONOCYTES 11.1 % (2-11); NEUTROPHILS 59.3 % (40-80); PLATELET COUNT 296 10x3/uL (130-400); RBC 3.56 10x6/uL (4.00-5.40); RDW 17.5 % (11.5-14.5); WBC 5.9 10x3/uL (4.8-10.8)
--- NOTE | 2019-02-04 07:19 | OP ---
PATIENT NAME: LIZ JOYCE MEDICAL RECORD: [id number] :[birth year] LOCATION:D.M2 D.2125 ADMISSION DATE:01/30/19 SURGEON: DEN RENDON MD DATE OF OPERATION: 02/02/2019 PREOPERATIVE DIAGNOSES: 1. Enterocutaneous fistula. 2. Bilateral ureteral calculi. 3. Chronic obstructive pulmonary disease. 4. Asthma. 5. Gastroparesis. POSTOPERATIVE DIAGNOSES: 1. Enterocutaneous fistula. 2. Bilateral ureteral calculi. 3. Chronic obstructive pulmonary disease. 4. Asthma. 5. Gastroparesis. PROCEDURES: 1. Laparoscopic excision of enterocutaneous fistula. 2. Bronchoscopy. SURGEON: Den Rendon MD REPORT OF PROCEDURE: The patient's abdomen was prepped and draped in sterile fashion. A Veress needle was inserted in the left upper quadrant and the abdomen was insufflated. A 5-mm Visiport trocar was then inserted in the right lower quadrant. I could see the Veress needle and there was no sign of any injury to bowel or surrounding structures. We then placed a 5-mm trocar just below the umbilicus and a 12-mm trocar in the midline in the suprapubic region. The patient had minimal adhesions present. There was a piece of small bowel, which was adherent to the anterior abdominal wall consistent with our known finding of an enterocutaneous fistula. This did not appear to have been oversewn or adherent to the abdominal wall and any place other than the fistulous tract site. There was just a small piece of tissue adherent to the wall. For this reason, we just went ahead and fired a 45-blue load Endo-SARWAT stapler across this enterocutaneous fistula. This the two pieces of tissue. We inspected the small bowel and there did not appear to be any change in the size of the lumen of the small bowel after the staple line was in place. We then removed the staple line and remaining tissue from the anterior abdominal wall using electrocautery. We then inspected the abdomen and can see no sign of any bleeding. At this point, the ports and insufflation were then removed. We cored out the enterocutaneous fistula at the skin level all the way down to the fascia using electrocautery. This ovoid section of tissue was sent off for permanent specimen. We then closed the 12-mm trocar site and the enterocutaneous fistula site fascias using interrupted 0 Vicryls times 2 on each side. The wounds were then irrigated out with normal saline and infused with a total of 10 mL of 0.25% Marcaine with epinephrine. The skin incisions were all closed with running subcutaneous 5-0 Monocryl. After dressings were applied, an Olympus bronchoscope was advanced through the indwelling endotracheal tube. I went down the right and left main stem bronchi, I was able to get into some of the secondary bronchi. I did not see any evidence of any mucosal plugging. There was no sign of any fluid. There was no frothy material. There was definitely no sign of any mucus or purulent material. I went ahead and did not OPERATIVE REPORT [id number] LIZ JOYCE do any irrigations and at this point I just removed the scope. COMPLICATIONS: None. CONDITION: Stable. ANESTHESIA: General endotracheal. BLOOD LOSS: Minimal. TRANSINT:[id number] Voice Confirmation ID: [id number] DOCUMENT ID: [id number] DEN RENDON MD at 0719 CC: [id number] DICTATION DATE: 02/02/19 1010 FIRE ENGINE OPERATOR: 02/02/19 1059 ADM IN [facility] [address] [place] [id number]
--- NOTE | 2019-02-04 07:30 | NUR ---
ASSESSMENT COMPLETED. 02 AT 2 L/M PER NC. IP TO RIGHT CHEST. TELEMERTY SHOWS SR. TO BE DISCHARGED. WILL MONITOR
--- NOTE | 2019-02-04 07:45 | NUR ---
PT TO WEAK THIS AM TO DO METAMORAIMA SAID SHE WOULD TRY IT LATER
[2019-02-04 09:55] VITALS: BP 142/62
--- NOTE | 2019-02-04 11:08 | NUR ---
Nutrition Follow-up: S/p lap excision of EC fistula on 02/02. Pt reports tolerating clear liquid diet. No N/V. Per angel Chandler to start soft diet. Noted plans to d/c today. Diet: Clear Liquid Wt: 120# Last BM: 01/30 Labs reviewed Meds reviewed Rec continue to ADAT. RD following.
--- NOTE | 2019-02-04 12:44 | MORECARE ---
CASE MANAGEMENT DISCHARGE SUMMARY PATIENT: LIZ JOYCE UNIT: [id number] ADM DATE: 01/30/19 AGE: 83 : 37 SEX: F ROOM/BED: D.0452 AUTHOR: CELESTE,DOC PHYSICIAN: REFERRING PHYSICIAN: SELAM PUGH MD DATE OF SERVICE: 02/04/19 Discharge Plan Patient Name: LIZ JOYCE Facility: [facility]:[place] : 1935 Planned Disposition: Home with Home Health Anticipated Discharge Date: Discharge Date: Expected LOS: Initial Reviewer: [email or web address] Initial Review Date: 02/02/2019 Generated: 02/04/19 1:43 pm Comments DCP- Discharge Planning Updated by [id number]: Mundo Finley on 02/03/19 4:[address] Patient Name: LIZ JOYCE Encounter No: [id number] : 1935 Primary Insurance: [employer] MEDICARE SOLUTIONS Anticipated DC Date: Planned Disposition: Home with Home Health External Planned Provider: [facility] Discharge Planning Comments: DR. LAMAR INFORMED CM THAT AT DISCHARGE, PT WILL NEED A FOLLOW UP APPOINTMENT WITH HIM IN ONE WEEK FOR REMOVAL OF STENTS. FOR RESUMPTION OF HOME HEALTH AT DISCHARGE, FAX DISCHARGE INFORMATION TO [facility] AT [phone], NOTIFY [facility] AT [phone]. CM TO CONTINUE TO FOLLOW AND ASSIST NEEDED. Marine Service Manager: Mundo Finley DCP- Discharge Planning Updated by [id number]: Mundo Finley on 02/02/19 3:[address] Patient Name: LIZ JOYCE Admission Status: ER Accout number: [id number] Admission Date: 01-30-2019 : 1935 Admission Diagnosis: Attending: SELAM PUGH Current LOS: 3 Anticipated DC Date: Planned Disposition: Home with Home Health Primary Insurance: [employer] MEDICARE SOLUTIONS PLANNED EXTERNAL PROVIDER: [facility] Discharge Planning Comments: CM MET WITH PT AND SOHAM IN ROOM TO DISCUSS DISCHARGE PLANNING AND NEEDS. LIZ JOYCE provided verbal consent to discuss current and ongoing needs with/in the presence of: KIM, DAUGHTER. PT REPORTS LIVING AT HOME ALONE NEXT DOOR TO HER DAUGHTER. PT HAS FAMILY ASSISTANCE FOR BATHING AND MEDICATION MANAGEMENT. PT HAS BEDSIDE COMMODE, CANE, NEBULIZER, HOME AND PORTABLE OXYGEN, ROLLING WALKER AND WHEELCHAIR FROM [facility]. PT HAS HOME HEALTH FOR NURSING WITH [facility]. CM DISCUSSED AVAILABILITY OF HOME HEALTH, REHAB SERVICES AND MEDICAL EQUIPMENT. PT DENIES DISCHARGE NEEDS OTHER THAN HAVING HOME HEALTH RESUMED, CHOICE SIGNED. PT REPORTS HER DAUGHER WILL PICK HER UP FOR DISCHARGE HOME. CM SPOKE TO DAVID OF [facility] WHO INFORMED CM THAT THEY PLAN TO RESUME HOME HEALTH SERVICES WHEN PT DISCHARGES HOME. FOR RESUMPTION OF HOME HEALTH AT DISCHARGE, FAX DISCHARGE INFORMATION TO [facility] AT [phone], NOTIFY MARG[facility] AT [phone]. CM TO CONTINUE TO FOLLOW AND ASSIST NEEDED. Marine Service Manager: Mundo Finley DCPIA - Discharge Planning Initial Assessment Updated by [id number]: Mundo Finley on 02/02/19 4:54 pm * Is the patient Alert and Oriented? Yes * How many steps to enter\exit or inside your home? NONE * PCP DR. SAM * Pharmacy [facility] * Preadmission Environment Home Alone * ADLs Partial Dependent * Partial ADLs (Assistance needed) Bathing Medication Management * Equipment Bedside Commode Cane Nebulizer Other Oxygen Rolling Walker Wheelchair * Other Equipment HOME AND PORTABLE OXGYEN [facility] LIFELINE EMERGENCY PENDANT VEST FOR PERCUSSION THERAPY * List name and contact numbers for known caregivers / representatives who currently or will assist patient after discharge: KIM MILLER, DTR, BRIE MILLER, SON, * Verbal permission to speak to the caregivers and representatives has been obtained from the patient. Yes * Community resources currently utilized Home Health * Please name any agencies selected above. [facility], NURSING ONLY * Additional services required to return to the preadmission environment? No * Can the patient safely return to the preadmission environment? Yes * Has this patient been hospitalized within the prior 30 days at any hospital? No External Providers External Provider: [facility] Next Contact Date: 02/04/2019 Service Request Date: Service Type: Resolution: Reviewer: Comments: Coverage Notice Reviewer: [id number] - Mundo Finley Notice Issued Date-Time: 02/02/2019 16:40 Notice Type: Patient Choice Letter Notice Delivered To: Patient Relationship to Patient: Plastering Contractor Name: Delivery Method: HAND - Hand Delivered Marcela Days: Prior Verbal Notification: Recipient Understood Notice: Yes Recipient Signature: Yes Med Rec Note Co-signed by Attending: Coverage Notice Comment: [facility] Reviewer: [id number] - Mundo Finley Notice Issued Date-Time: 02/04/2019 9:20 Notice Type: IM Discharge Notice Notice Delivered To: Patient Relationship to Patient: Plastering Contractor Name: Delivery Method: HAND - Hand Delivered Marcela Days: Prior Verbal Notification: Recipient Understood Notice: Yes Recipient Signature: Yes Med Rec Note Co-signed by Attending: Coverage Notice Comment: Last DP export: 02/03/19 4:13 p Patient Name: LIZ JOYCE Page 32604 at 1244 All edits/amendments must be made on the electronic document DICTATION DATE: 02/04/19 1243 MEDICAL SALES: STEPHEN 02/04/19 1243 RPT#: [id number] DC DATE: STATUS: ADM IN [facility] [address] [place] [address] END OF REPORT
--- NOTE | 2019-02-04 12:52 | NUR ---
PT DISCHARGED. IP FLUSHED WITH HEP FLUSH. INSTRUCTIONS GIVEN TO PT AND FAMILY . TO PRIVATE CAR PER WHEELCHAIR.
--- NOTE | 2019-02-04 13:02 | NUR ---
Nutrition follow-up: Chart reviewed. 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 ~5% weight loss in 1 month (132# December 09, 2018; now 125#) 2. < 75% intake of estimated energy needs for > 1 month RDN following.
--- NOTE | 2019-02-04 13:03 | MORECARE ---
CASE MANAGEMENT DISCHARGE SUMMARY PATIENT: LIZ JOYCE UNIT: [id number] ADM DATE: 01/30/19 AGE: 83 : 37 SEX: F ROOM/BED: D.6841 AUTHOR: CELESTE,DOC PHYSICIAN: REFERRING PHYSICIAN: SELAM PUGH MD DATE OF SERVICE: 02/04/19 Discharge Plan Patient Name: LIZ JOYCE Facility: [facility]:[place] : 1935 Planned Disposition: Home with Home Health Anticipated Discharge Date: Discharge Date: 02/04/2019 Expected LOS: Initial Reviewer: [id number] Initial Review Date: 02/02/2019 Generated: 02/04/19 2:03 pm Comments DCP- Discharge Planning Updated by [email or web address]: Mundo Finley on 02/04/19 11:[address] Patient Name: LIZ JOYCE Encounter No: [id number] : 1935 Primary Insurance: [facility] MEDICARE SOLUTIONS Anticipated DC Date: Planned Disposition: Home with Home Health External Planned Provider: [facility] DCP follow-up note: CM RECEIVED DISCHARGE ORDER, SPOKE TO PT IN ROOM WHO IS IN AGREEMENT WITH DISCHARGE TODAY, DAUGHTER TO TRANSPORT HOME. IMPORTANT MESSAGE FROM MEDICARE PROVIDED AND EXPLAINED. CM [facility] AT [phone], CM CALLED AND NOTIFIED KELVIN OF [facility] AT [phone] FOR HOME HEALTH RESUMPTION. APRON TRIMMER NURSE NOTIFIED. Nurse Executive: Mundo Finley DCP- Discharge Planning Updated by [id number]: Mundo Finley on 02/03/19 4:[address] Patient Name: LIZ JOYCE Encounter No: [id number] : 1935 Primary Insurance: [facility] MEDICARE SOLUTIONS Anticipated DC Date: Planned Disposition: Home with Home Health External Planned Provider: [facility] Discharge Planning Comments: DR. LAMAR INFORMED CM THAT AT DISCHARGE, PT WILL NEED A FOLLOW UP APPOINTMENT WITH HIM IN ONE WEEK FOR REMOVAL OF STENTS. FOR RESUMPTION OF HOME HEALTH AT DISCHARGE, FAX DISCHARGE INFORMATION TO [facility] AT [phone], NOTIFY [facility] AT [phone]. CM TO CONTINUE TO FOLLOW AND ASSIST NEEDED. Nurse Executive: Mundo Finley DCP- Discharge Planning Updated by [id number]: Mundo Finley on 02/02/19 3:[address] Patient Name: LIZ JOYCE Admission Status: ER Accout number: [id number] Admission Date: 01-30-2019 : 1935 Admission Diagnosis: Attending: SELAM PUGH Current LOS: 3 Anticipated DC Date: Planned Disposition: Home with Home Health Primary Insurance: [facility] MEDICARE SOLUTIONS PLANNED EXTERNAL PROVIDER: [facility] Discharge Planning Comments: CM MET WITH PT AND SOHAM IN ROOM TO DISCUSS DISCHARGE PLANNING AND NEEDS. LIZ JOYCE provided verbal consent to discuss current and ongoing needs with/in the presence of: KIM, DAUGHTER. PT REPORTS LIVING AT HOME ALONE NEXT DOOR TO HER DAUGHTER. PT HAS FAMILY ASSISTANCE FOR BATHING AND MEDICATION MANAGEMENT. PT HAS BEDSIDE COMMODE, CANE, NEBULIZER, HOME AND PORTABLE OXYGEN, ROLLING WALKER AND WHEELCHAIR FROM [facility]. PT HAS HOME HEALTH FOR NURSING WITH [facility]. CM DISCUSSED AVAILABILITY OF HOME HEALTH, REHAB SERVICES AND MEDICAL EQUIPMENT. PT DENIES DISCHARGE NEEDS OTHER THAN HAVING HOME HEALTH RESUMED, CHOICE SIGNED. PT REPORTS HER DAUGHER WILL PICK HER UP FOR DISCHARGE HOME. CM SPOKE TO DAVID OF [facility] WHO INFORMED CM THAT THEY PLAN TO RESUME HOME HEALTH SERVICES WHEN PT DISCHARGES HOME. FOR RESUMPTION OF HOME HEALTH AT DISCHARGE, FAX DISCHARGE INFORMATION TO [facility] AT [phone], NOTIFY [facility] AT [phone]. CM TO CONTINUE TO FOLLOW AND ASSIST NEEDED. Nurse Executive: Mundo Finley DCPIA - Discharge Planning Initial Assessment Updated by [email or web address]: Mundo Finley on 02/02/19 4:54 pm * Is the patient Alert and Oriented? Yes * How many steps to enter\exit or inside your home? NONE * PCP DR. SAM * Pharmacy [facility] * Preadmission Environment Home Alone * ADLs Partial Dependent * Partial ADLs (Assistance needed) Bathing Medication Management * Equipment Bedside Commode Cane Nebulizer Other Oxygen Rolling Walker Wheelchair * Other Equipment HOME AND PORTABLE OXGYEN [facility] LIFELINE EMERGENCY PENDANT VEST FOR PERCUSSION THERAPY * List name and contact numbers for known caregivers / representatives who currently or will assist patient after discharge: ROBIN CHOR, BRIE MILLER, SON, * Verbal permission to speak to the caregivers and representatives has been obtained from the patient. Yes * Community resources currently utilized Home Health * Please name any agencies selected above. [facility], NURSING ONLY * Additional services required to return to the preadmission environment? No * Can the patient safely return to the preadmission environment? Yes * Has this patient been hospitalized within the prior 30 days at any hospital? No Coverage Notice Reviewer: JAYY Finley Notice Issued Date-Time: 02/02/2019 16:40 Notice Type: Patient Choice Letter Notice Delivered To: Patient Relationship to Patient: Casework Manager Name: Delivery Method: HAND - Hand Delivered Marcela Days: Prior Verbal Notification: Recipient Understood Notice: Yes Recipient Signature: Yes Med Rec Note Co-signed by Attending: Coverage Notice Comment: [facility] Reviewer: JAYY Finley Notice Issued Date-Time: 02/04/2019 9:20 Notice Type: IM Discharge Notice Notice Delivered To: Patient Relationship to Patient: Casework Manager Name: Delivery Method: HAND - Hand Delivered Marcela Days: Prior Verbal Notification: Recipient Understood Notice: Yes Recipient Signature: Yes Med Rec Note Co-signed by Attending: Coverage Notice Comment: Reviewer: JAYY Finley Notice Issued Date-Time: 02/04/2019 9:20 Notice Type: IM Discharge Notice Notice Delivered To: Patient Relationship to Patient: Casework Manager Name: Delivery Method: HAND - Hand Delivered Marcela Days: Prior Verbal Notification: Recipient Understood Notice: Yes Recipient Signature: Yes Med Rec Note Co-signed by Attending: Coverage Notice Comment: Last DP export: 02/04/19 11:44 a Patient Name: LIZ JOYCE Page [id number] at 1303 All edits/amendments must be made on the electronic document DICTATION DATE: 02/04/19 1303 GEOTHERMAL POWERPLANT MECHANIC HELPER: STEPHEN 02/04/19 1303 RPT#: [id number] DC DATE:02/04/19 STATUS: DIS IN [facility] [address] [place] [address] END OF REPORT
--- NOTE | 2019-02-05 07:15 | MORECARE ---
CASE MANAGEMENT DISCHARGE SUMMARY PATIENT: LIZ JOYCE UNIT: [id number] ADM DATE: 01/30/19 AGE: 83 : 37 SEX: F ROOM/BED: D.8802 AUTHOR: CELESTE,DOC PHYSICIAN: REFERRING PHYSICIAN: SELAM PUGH MD DATE OF SERVICE: 02/05/19 Discharge Plan Patient Name: LIZ JOYCE Facility: [facility]:[place] : 1935 Planned Disposition: Home with Home Health Anticipated Discharge Date: 02/04/19 Discharge Date: 02/04/2019 Expected LOS: 5 Initial Reviewer: [id number] Initial Review Date: 02/02/2019 Generated: 02/05/19 8:15 am Comments DCP- Discharge Planning Updated by [email or web address]: Mundo Finley on 02/04/19 11:[address] Patient Name: LIZ JOYCE Encounter No: [id number] : 1935 Primary Insurance: [facility] MEDICARE SOLUTIONS Anticipated DC Date: Planned Disposition: Home with Home Health External Planned Provider: [facility] DCP follow-up note: CM RECEIVED DISCHARGE ORDER, SPOKE TO PT IN ROOM WHO IS IN AGREEMENT WITH DISCHARGE TODAY, DAUGHTER TO TRANSPORT HOME. IMPORTANT MESSAGE FROM MEDICARE PROVIDED AND EXPLAINED. CM FAXED DISCHARGE INFORMATION TO [facility] AT [phone], CM CALLED AND NOTIFIED KELVIN OF [facility] AT [phone] FOR HOME HEALTH RESUMPTION. BARREL BANDER NURSE NOTIFIED. Commercial Reporter: Mundo Finley DCP- Discharge Planning Updated by [email or web address]: Mundo Finley on 02/03/19 4:[address] Patient Name: LIZ JOYCE Encounter No: [id number] : 1935 Primary Insurance: [facility] MEDICARE SOLUTIONS Anticipated DC Date: Planned Disposition: Home with Home Health External Planned Provider: [facility] Discharge Planning Comments: DR. LAMAR INFORMED CM THAT AT DISCHARGE, PT WILL NEED A FOLLOW UP APPOINTMENT WITH HIM IN ONE WEEK FOR REMOVAL OF STENTS. FOR RESUMPTION OF HOME HEALTH AT DISCHARGE, [facility] AT [phone], NOTIFY [facility] AT [phone]. CM TO CONTINUE TO FOLLOW AND ASSIST NEEDED. Commercial Reporter: Mundo Finley DCP- Discharge Planning Updated by [email or web address]: Mundo Finley on 02/02/19 3:[address] Patient Name: LIZ JOYCE Admission Status: ER Accout number: [id number] Admission Date: 01-30-2019 : 1935 Admission Diagnosis: Attending: SELAM PUGH Current LOS: 3 Anticipated DC Date: Planned Disposition: Home with Home Health Primary Insurance: [facility] MEDICARE SOLUTIONS PLANNED EXTERNAL PROVIDER: [facility] Discharge Planning Comments: CM MET WITH PT AND SRAVANGTER IN ROOM TO DISCUSS DISCHARGE PLANNING AND NEEDS. LIZ JOYCE provided verbal consent to discuss current and ongoing needs with/in the presence of: KIM, DAUGHTER. PT REPORTS LIVING AT HOME ALONE NEXT DOOR TO HER DAUGHTER. PT HAS FAMILY ASSISTANCE FOR BATHING AND MEDICATION MANAGEMENT. PT HAS BEDSIDE COMMODE, CANE, NEBULIZER, HOME AND PORTABLE OXYGEN, ROLLING WALKER AND WHEELCHAIR FROM [facility]. PT HAS HOME HEALTH FOR NURSING WITH [facility]. CM DISCUSSED AVAILABILITY OF HOME HEALTH, REHAB SERVICES AND MEDICAL EQUIPMENT. PT DENIES DISCHARGE NEEDS OTHER THAN HAVING HOME HEALTH RESUMED, CHOICE SIGNED. PT REPORTS HER DAUGHER WILL PICK HER UP FOR DISCHARGE HOME. CM SPOKE TO DAVID OF [facility] WHO INFORMED CM THAT THEY PLAN TO RESUME HOME HEALTH SERVICES WHEN PT DISCHARGES HOME. FOR RESUMPTION OF HOME HEALTH AT DISCHARGE, FAX DISCHARGE INFORMATION TO [facility] AT [phone], NOTIFY [facility] AT [phone]. CM TO CONTINUE TO FOLLOW AND ASSIST NEEDED. Commercial Reporter: Mundo Finley DCPIA - Discharge Planning Initial Assessment Updated by [id number]: Mundo Finley on 02/02/19 4:54 pm * Is the patient Alert and Oriented? Yes * How many steps to enter\exit or inside your home? NONE * PCP DR. SAM * Pharmacy [facility] * Preadmission Environment Home Alone * ADLs Partial Dependent * Partial ADLs (Assistance needed) Bathing Medication Management * Equipment Bedside Commode Cane Nebulizer Other Oxygen Rolling Walker Wheelchair * Other Equipment HOME AND PORTABLE OXGYEN [facility] LIFELINE EMERGENCY PENDANT VEST FOR PERCUSSION THERAPY * List name and contact numbers for known caregivers / representatives who currently or will assist patient after discharge: ROBIN CHOR, DENNYS COATES, * Verbal permission to speak to the caregivers and representatives has been obtained from the patient. Yes * Community resources currently utilized Home Health * Please name any agencies selected above. [facility], NURSING ONLY * Additional services required to return to the preadmission environment? No * Can the patient safely return to the preadmission environment? Yes * Has this patient been hospitalized within the prior 30 days at any hospital? No Coverage Notice Reviewer: JAYY Finley Notice Issued Date-Time: 02/02/2019 16:40 Notice Type: Patient Choice Letter Notice Delivered To: Patient Relationship to Patient: Business Performance Advisor Name: Delivery Method: HAND - Hand Delivered Marcela Days: Prior Verbal Notification: Recipient Understood Notice: Yes Recipient Signature: Yes Med Rec Note Co-signed by Attending: Coverage Notice Comment: [facility] Reviewer: JAYY Finley Notice Issued Date-Time: 02/04/2019 9:20 Notice Type: IM Discharge Notice Notice Delivered To: Patient Relationship to Patient: Business Performance Advisor Name: Delivery Method: HAND - Hand Delivered Marcela Days: Prior Verbal Notification: Recipient Understood Notice: Yes Recipient Signature: Yes Med Rec Note Co-signed by Attending: Coverage Notice Comment: Reviewer: JAYY Finley Notice Issued Date-Time: 02/04/2019 9:20 Notice Type: IM Discharge Notice Notice Delivered To: Patient Relationship to Patient: Business Performance Advisor Name: Delivery Method: HAND - Hand Delivered Marcela Days: Prior Verbal Notification: Recipient Understood Notice: Yes Recipient Signature: Yes Med Rec Note Co-signed by Attending: Coverage Notice Comment: Last DP export: 02/04/19 12:03 p Patient Name: LIZ JOYCE Page 51301 at 0715 All edits/amendments must be made on the electronic document DICTATION DATE: 02/05/19714 AIRPLANE FLIGHT ATTENDANT SUPERVISOR: STEPHEN 02/05/19714 RPT#: [id number] DC DATE:02/04/19 STATUS: DIS IN [facility] [address] [place] [address] END OF REPORT
[2019-02-11 15:10] LABS: CALCULI - CA OXALATE DIHYDRATE 75 % (()); CALCULI - CA OXALATE MONOHYDR 20 % (()); CALCULI - COLOR Tan (()); CALCULI - COMMENT Note: (()); CALCULI - SIZE 3x2x1 mm (()); CALCULI - WEIGHT 4.1 mg (())
== END 2019-02-04 13:02 | disposition home health service (06) | DRG 356 ==
LOC: D.ER 18:06 → D.M2 21:08
PROVIDERS: Emergency Medicine; Surgery; Urology; ADMIT Family Medicine; ATTEND Family Medicine
PROC: 0BJ08ZZ Inspection of Tracheobronchial Tree, Via Natural or Artificial Opening Endoscopic (ICD-10-PCS; 2019-02-02)
PROC: BT141ZZ Fluoroscopy of Kidneys, Ureters and Bladder using Low Osmolar Contrast (ICD-10-PCS; 2019-02-02)
PROC: 0WBF4ZZ Excision of Abdominal Wall, Percutaneous Endoscopic Approach (ICD-10-PCS; principal; 2019-02-02 10:30)
PROC: 0T788DZ Dilation of Bilateral Ureters with Intraluminal Device, Via Natural or Artificial Opening Endoscopic (ICD-10-PCS; 2019-02-02 10:30)
DX: K63.2 Fistula of intestine (principal); E43 Unspecified severe protein-calorie malnutrition; N13.2 Hydronephrosis with renal and ureteral calculous obstruction; T17.590A Other foreign object in bronchus causing asphyxiation, initial encounter; J98.11 Atelectasis; J96.11 Chronic respiratory failure with hypoxia; Z68.1 Body mass index [BMI] 19.9 or less, adult; E83.59 Other disorders of calcium metabolism; J47.9 Bronchiectasis, uncomplicated; Z99.81 Dependence on supplemental oxygen; K21.9 Gastro-esophageal reflux disease without esophagitis; J30.9 Allergic rhinitis, unspecified; I48.91 Unspecified atrial fibrillation; I10 Essential (primary) hypertension; E03.9 Hypothyroidism, unspecified; D64.9 Anemia, unspecified; K31.84 Gastroparesis; Z86.73 Personal history of transient ischemic attack (TIA), and cerebral infarction without residual deficits

== ENCOUNTER → 2019-04-02 09:44 | Outpatient (CLI) | payer MEDICARE ==
[2019-02-01 16:40] VITALS: BMI 18.4
[~2019-04-02 09:44] MED LIST changes: +OMEPRAZOLE40 MG PO; +SULFAMETHOXAZOL1 TA2 PO
[2019-04-02 12:30] LABS: APPEARANCE CLOUDY (CLEAR); BACTERIA MANY /hpf (NEGATIVE); BILIRUBIN NEGATIVE (NEGATIVE); COLOR YELLOW (YELLOW); EPITHELIAL CELLS 0-5 /hpf (0-5); GLUCOSE NEGATIVE (NEGATIVE); KETONE NEGATIVE (NEGATIVE); MUCUS <1+ /lpf (NONE SEEN); NITRITE NEGATIVE (NEGATIVE); PROTEIN TRACE mg/dL (NEGATIVE); RED CELLS - URINE 0-5 /hpf (0-5); SPECIFIC GRAVITY 1.015 (1.005-1.020); UROBILINOGEN NORMAL (NORMAL)
== END | disposition home or self-care (01) ==
LOC: D.LABREF 09:44
PROVIDERS: ATTEND Urology
DX: R41.0 Disorientation, unspecified (principal); R30.0 Dysuria

== ENCOUNTER → 2019-04-09 11:17 | Outpatient (CLI) | payer MEDICARE ==
[2019-02-01 16:40] VITALS: BMI 18.4
[2019-04-09 11:39] LABS: BASOPHILS 0.5 % (0-2); EOSINOPHILS 3.6 % (0-7); IMMATURE GRANULOCYTES 0.2 % (0-5); LYMPHOCYTES 20.2 % (15-50); MCH 22.4 pg (26.0-34.0); MCHC 28.1 g/dL (31.0-37.0); MCV 79.8 fL (80.0-100.0); MEAN PLATELET VOLUME 11.4 fL (7.4-10.4); MONOCYTES 10.4 % (2-11); NEUTROPHILS 65.1 % (40-80); PLATELET COUNT 354 10x3/uL (130-400); RBC 4.01 10x6/uL (4.00-5.40); RDW 15.9 % (11.5-14.5)
[2019-04-09 11:53] LABS: ANION GAP 9.2 mmol/L (8-16); CALCIUM 8.7 mg/dL (8.5-10.1); CARBON DIOXIDE 29.1 mmol/L (21.0-32.0); CREATININE - SERUM 0.8 mg/dL (0.6-1.3); POTASSIUM - SERUM 4.3 mmol/L (3.5-5.1)
== END | disposition home or self-care (01) ==
LOC: D.LABREF 11:17
PROVIDERS: ATTEND Family Medicine
DX: D64.9 Anemia, unspecified (principal); Z87.442 Personal history of urinary calculi; K31.84 Gastroparesis

== ENCOUNTER → 2019-04-13 12:14 | Outpatient (CLI) | payer MEDICARE ==
[2019-02-01 16:40] VITALS: BMI 18.4
== END | disposition home or self-care (01) ==
LOC: D.CT 12:14
PROVIDERS: ATTEND Urology
DX: R39.89 Other symptoms and signs involving the genitourinary system (principal)

== ENCOUNTER 2019-04-15 08:20 | Day surgery (SDC) | payer MEDICARE ==
[~2019-04-15] VITALS: Ht 175.3 cm; Wt 54.0 kg
[~2019-04-15 08:20] MED LIST changes: -OMEPRAZOLE40 MG PO
[2019-04-15 08:57] LABS: BASOPHILS 0.1 % (0-2); HEMATOCRIT 33.4 % (36.0-48.0); HEMOGLOBIN 9.6 g/dL (12-16); IMMATURE GRANULOCYTES 0.1 % (0-5); LYMPHOCYTES 19.1 % (15-50); MCH 22.4 pg (26.0-34.0); MCHC 28.7 g/dL (31.0-37.0); MCV 77.9 fL (80.0-100.0); MEAN PLATELET VOLUME 11.1 fL (7.4-10.4); MONOCYTES 7.5 % (2-11); NEUTROPHILS 70.2 % (40-80); PLATELET COUNT 329 10x3/uL (130-400); RBC 4.29 10x6/uL (4.00-5.40); RDW 15.7 % (11.5-14.5)
[2019-04-15 09:03] LABS: ANION GAP 9.8 mmol/L (8-16); CALCIUM 8.8 mg/dL (8.5-10.1); CARBON DIOXIDE 27.7 mmol/L (21.0-32.0); POTASSIUM - SERUM 4.5 mmol/L (3.5-5.1)
[2019-04-15] MEDS ORDERED: OMEPRAZOLE40 MG PO (09:36)
[2019-04-15 09:39] VITALS: Ht 175.3 cm; Wt 54.0 kg
--- NOTE | 2019-04-15 12:02 | OP ---
PATIENT NAME: LIZ JOYCE MEDICAL RECORD: [id number] :[birth year] LOCATION:D.OPS ADMISSION DATE: SURGEON: SUKUMAR LAMAR MD DATE OF OPERATION: 04/15/2019 SURGEON: Sukumar Lamar MD ANESTHESIA: Local anesthetic by Blaise Mejia CRNA. DIAGNOSIS: Pneumaturia. FINDINGS: On cystoscopy, single ureteral orifices bilaterally. No bladder tumors. No fistula tract seen. PROCEDURE: Cystoscopy. BLOOD LOSS: None. CLINICAL HISTORY: This is an 84-year-old female, who has a recent urinary tract infection with E. coli, which is sensitive to Bactrim. She is complaining of pneumaturia. I obtained a CT scan of the abdomen and pelvis which shows nonobstructive punctate right renal stone. There is no hydroureteronephrosis and no renal masses. There was no obvious enterovesical fistula visible on the CT scan. She comes today to have cystoscopy to be sure that there is no enterovesical fistula accounting for the pneumaturia. SHE IS ALLERGIC TO MULTIPLE ITEMS INCLUDING MORPHINE, ROCEPHIN, TESSALON PERLES AND ZOSYN. She was given Levaquin advisory application developer to the OR. Finally, the CT scan and chest x-ray shows left lower lobe pneumonia. For this reason, we did not give her any sedation. Instead, we gave her just local anesthetic. DESCRIPTION OF PROCEDURE: The patient was placed in lithotomy position. She was prepped and draped. Lidocaine jelly was inserted into the urethra. I used a 17-Turkmen cystoscope with 30-degree lens. There were a few gas bubbles in the anterior bladder wall, but no obvious bladder tumors were seen. There was no fistula tract seen at all. Most likely, the hematuria is from the UTI itself. The bladder was then emptied through the cystoscope sheath and then the scope was removed. TRANSINT:[id number] Voice Confirmation ID: [id number] DOCUMENT ID: [id number] SUKUMAR LAMAR MD at 1202 CC: [id number] DICTATION DATE: 04/15/19 1118 FIRE PREVENTION INSPECTOR: 04/15/19 112[address] [place] [address]
--- NOTE | 2019-04-15 12:19 | NUR ---
1210 DISCHARGED WITH DAUGHTER VIA WC. NO ANESTHESIA GIVEN, HOME O2. STABLE
== END 2019-04-15 12:10 | disposition home or self-care (01) ==
LOC: D.OPS 08:20 → D.PAN 11:10 → D.OPS 11:10
PROVIDERS: Anesthesiology; ATTEND Urology
DX: R39.89 Other symptoms and signs involving the genitourinary system (principal)

== ENCOUNTER → 2019-04-30 10:51 | Outpatient (CLI) | payer MEDICARE ==
[2019-04-15 09:39] VITALS: BMI 17.6
[~2019-04-30 10:51] MED LIST changes: +OMEPRAZOLE40 MG PO
== END | disposition home or self-care (01) ==
LOC: D.RAD 10:51
PROVIDERS: ATTEND Pain Medicine Interventional Pain Medicine
DX: M54.2 Cervicalgia (principal); M53.2X2 Spinal instabilities, cervical region

== ENCOUNTER → 2019-05-27 09:22 | Outpatient (CLI) | payer MEDICARE ==
[2019-04-15 09:39] VITALS: BMI 17.6
== END | disposition home or self-care (01) ==
LOC: D.NM 09:22
PROVIDERS: ATTEND Nurse Practitioner Family
DX: R63.4 Abnormal weight loss (principal); R91.1 Solitary pulmonary nodule

== ENCOUNTER → 2019-11-30 16:55 | Outpatient (CLI) | payer MEDICARE ==
[2019-04-15 09:39] VITALS: BMI 17.6
== END | disposition home or self-care (01) ==
LOC: D.LABREF 16:55
PROVIDERS: ATTEND Family Medicine
DX: J47.9 Bronchiectasis, uncomplicated (principal); R56.9 Unspecified convulsions

== ENCOUNTER → 2019-12-27 11:38 | Outpatient (CLI) | payer MEDICARE ==
[2019-04-15 09:39] VITALS: BMI 17.6
== END | disposition home or self-care (01) ==
LOC: D.LAB 11:38
PROVIDERS: ATTEND Family Medicine
DX: R19.7 Diarrhea, unspecified (principal); Z79.2 Long term (current) use of antibiotics

== ENCOUNTER → 2020-01-12 09:35 | Outpatient (CLI) | payer MEDICARE ==
[2019-04-15 09:39] VITALS: BMI 17.6
== END | disposition home or self-care (01) ==
LOC: D.CT 09:35
PROVIDERS: ATTEND Nurse Practitioner Family
DX: R56.9 Unspecified convulsions (principal)